=== PATIENT | female | born 1970 | race African-American/Black ===

== ENCOUNTER 2017-01-09 18:52 | Emergency (ER) | payer BC ==
[2017-01-09 19:00] VITALS: BMI 34.7
--- NOTE | 2017-01-09 19:00 | PDOC ---
Rapid Medical Evaluation Chief Complaint: Chest Pain Time Seen by Provider: 01/09/17 18:54 Medical Evaluation: Allergies Allergy/AdvReac Type Severity Reaction Status Date / Time codeine [Codeine] Allergy Verified 01/09/17 18:54 01/09/17 18:59 I have performed a brief in-person evaluation of this patient. The patient presents with a chief complaint of: chest pain, sob, dizziness Pertinent physical exam findings:anxious female I have ordered the following:cbc, cmp, troponin, cxr, bnp The patient will proceed to the ED for further evaluation.
[2017-01-09 20:04] LABS: URINE APPEARANCE CLEAR; URINE BILIRUBIN NEGATIVE (NEGATIVE); URINE BLOOD NEGATIVE (NEGATIVE); URINE COLOR COLORLESS; URINE GLUCOSE (UA) NEGATIVE (NEGATIVE); URINE KETONE NEGATIVE (NEGATIVE); URINE LEUK ESTERASE NEGATIVE (NEGATIVE); URINE NITRITE NEGATIVE (NEGATIVE); URINE PROTEIN NEGATIVE (NEGATIVE); URINE UROBILINOGEN NEGATIVE E.U./dl (0.2-1.0)
[2017-01-09 20:05] LABS: BASOPHIL 0.6 % (0-2.0); MCH 28.1 pg (25.7-33.7); MCHC 33.7 g/dl (32.0-36.0); MEAN CELL VOLUME 83.4 fl (80-96); MEAN PLT VOLUME 8.3 fl (7.5-11.1); NEUTROPHILS 63.1 % (42.8-82.8); PLATELET COUNT 266 K/MM3 (134-434); RDW 14.3 % (11.6-15.6); WHITE BLOOD COUNT 6.7 K/mm3 (4.0-10.0)
[2017-01-09 20:29] LABS: ALBUMIN 3.4 g/dl (3.4-5.0); ANION GAP 8 (8-16); BILIRUBIN,TOTAL 0.3 mg/dL (0.2-1.0); CALCIUM 8.2 mg/dL (8.5-10.1); CO2 28 mmol/L (21-32); GLUCOSE,RANDOM 97 mg/dL (74-106); SGOT/AST 13 U/L (15-37); SGPT/ALT 26 U/L (12-78); TOT PROT 7.1 g/dl (6.4-8.2)
[2017-01-09] MEDS ORDERED: MECLIZINE HCL 12.5 MG TABLET PO ONE (20:32)
[2017-01-09 20:35] LABS: ALK PHOS 118 U/L (45-117); TROPONIN I < 0.02 ng/ml (0.00-0.05)
[2017-01-09] MEDS ORDERED: MECLIZINE HCL 12.5 MG TABLET ONE (20:35)
--- NOTE | 2017-01-09 20:48 | PDOC ---
*Physical Exam - Vital Signs Last Vital Signs Temp Pulse Resp BP Pulse Ox 97.6 F 76 19 157/89 98 01/09/17 18:54 01/09/17 18:54 01/09/17 18:54 01/09/17 18:54 01/09/17 18:54 ED Treatment Course - LABORATORY CBC & Chemistry Diagram: 01/09/17 19:31 01/09/17 19:31 - ADDITIONAL ORDERS Additional order review: Laboratory Results 01/09/17 01/09/17 01/09/17 19:51 19:50 19:31 Sodium 139 Potassium 3.8 Chloride 103 Carbon Dioxide 28 Anion Gap 8 BUN 20 H Creatinine 1.0 Creat Clearance w eGFR 59.18 Random Glucose 97 Calcium 8.2 L Total Bilirubin 0.3 D AST 13 L D ALT 26 Alkaline Phosphatase 118 H Creatine Kinase 66 Troponin I < 0.02 B-Natriuretic Peptide 104.16 Total Protein 7.1 Albumin 3.4 D Serum , Qual Negative Urine Color Colorless Urine Appearance Clear Urine pH 5.0 Ur Specific [place] 1.005 Urine Protein Negative Urine Glucose (UA) Negative Urine Ketones Negative Urine Blood Negative Urine Nitrite Negative Urine Bilirubin Negative Urine Urobilinogen Negative Ur Leukocyte Esterase Negative 01/09/17 19:31 RBC 3.82 MCV 83.4 MCHC 33.7 RDW 14.3 MPV 8.3 Neutrophils % 63.1 D Lymphocytes % 23.6 D Monocytes % 9.7 Eosinophils % 3.0 D Basophils % 0.6 - Medications Given in the ED: ED Medications Discontinued Medications Generic Name Dose Route Start Last Admin Trade Name Freq PRN Reason Stop Dose Admin Meclizine HCl 12.5 mg 01/09/17 20:32 01/09/17 20:40 Antivert - PO 01/09/17 20:33 12.5 mg ONCE ONE Administration Medical Decision Making - Medical Decision Making 01/09/17 20:47 Pt seen by the Advanced Practice Provider under my direct supervision Ancillary studies reviewed I agree with plan as outlined by the Advanced Practice Provider JANNIE Kincaid *DC/Admit/Observation/Transfer Diagnosis at time of Disposition: Dizziness, Atypical chest pain - Discharge Dispostion Disposition: HOME Condition at time of disposition: Guarded - Referrals Referrals: Philipp Wong MD [Staff Physician] - Zafar Starks MD [Primary Care Provider] - - Patient Instructions Printed Discharge Instructions: Vertigo, DI for Atypical Chest Pain Additional Instructions: Rest Avoid driving or operating heavy machinery Follow up with the Neurologist (listed on your discharge form) and your physician Return back to the ER for severe/persistent or worsening symptoms
--- NOTE | 2017-01-09 21:24 | PDOC ---
History of Present Illness - General Chief Complaint: Chest Pain Stated Complaint: CHEST PAIN Time Seen by Provider: 01/09/17 18:54 History Source: Patient Exam Limitations: No Limitations - History of Present Illness Timing/Duration: 1-3 hours Severity: mild Associated Symptoms: reports: chest pain (left sided) Aspirin Received prior to arrival: Yes: no aspirin today Past History - Travel Traveled outside of the country in the last 30 days: No Close contact w/someone who was outside of country & ill: No - Past Medical History Allergies/Adverse Reactions: Allergies Allergy/AdvReac Type Severity Reaction Status Date / Time codeine [Codeine] Allergy Verified 01/09/17 18:54 Home Medications: Ambulatory Orders Amlodipine Besylate [Norvasc -] 10 mg PO DAILY 06/21/15 Furosemide [Lasix -] 20 mg PO DAILY 06/21/15 Lisinopril [Prinivil -] 60 mg PO DAILY 06/21/15 Multivitamins [Multivit ([facility] Formulary)] 1 tab PO DAILY 06/21/15 Albuterol Sulfate [Proair Hfa -] 1 - 2 inh PO BID 11/06/15 Budesonide/Formeterol Fumarate [SYMBICORT 160/4.5mcg -] 1 inh PO DAILY 11/06/15 Lactobacillus Acidophilus [Bacid -] 2 each PO HS #30 capsule 04/02/16 Naproxen [Naprosyn -] 500 mg PO BID #30 tablet 10/22/16 Ondansetron [Zofran *Odt*] 4 mg SL TID #30 od.tablet 10/22/16 Pantoprazole Sodium [Protonix -] 80 mg PO BID #30 tablet.ec 10/22/16 Asthma: Yes CVA: Yes Diabetes: Yes GI Disorders: Yes (GERD) HTN: Yes Hypercholesterolemia: Yes Suicide Attempt (Hx): No - Family Disease History Family Disease History: Heart Disease: Father (htn) - Immunization History Td Vaccination: Yes Immunization Up to Date: Yes - Psycho/Social/Smoking Cessation Hx Anxiety: No Suicidal Ideation: No Smoking Status: No Smoking History: Never smoked Years of Tobacco Use: 0 Have you smoked in the past 12 months: No Number of Cigarettes Smoked Daily: 0 Cigars Per Day: 0 Hx Alcohol Use: No Drug/Substance Use Hx: No Substance Use Type: None Hx Substance Use Treatment: No Review of Systems - Review of Systems Able to Perform ROS?: Yes Comments:: 01/09/17 21:22 CONSTITUTIONAL: Absent: fever, chills, diaphoresis, generalized weakness, malaise, loss of appetite HEENT: Absent: rhinorrhea, nasal congestion, throat pain, throat swelling, difficulty swallowing, mouth swelling, ear pain, eye pain, visual Changes CARDIOVASCULAR: +chest pain Absent: loss of consciousness, palpitations, irregular heart rate, peripheral edema RESPIRATORY: Absent: cough, shortness of breath, dyspnea with exertion, orthopnea, wheezing, stridor, hemoptysis GASTROINTESTINAL: Absent: abdominal pain, abdominal distension, nausea, vomiting, diarrhea, constipation, melena, hematochezia GENITOURINARY: Absent: dysuria, frequency, urgency, hesitancy, hematuria, flank pain, genital pain MUSCULOSKELETAL: Absent: myalgia, arthralgia, joint swelling SKIN: Absent: rash, itching, pallor HEMATOLOGIC/IMMUNOLOGIC: Absent: easy bleeding, easy bruising, lymphadenopathy, frequent infections ENDOCRINE: Absent: unexplained weight gain, unexplained weight loss, heat intolerance, cold intolerance NEUROLOGIC: +dizziness Absent: headache, focal weakness or paresthesias, unsteady gait, seizure, mental status changes, bladder or bowel incontinence PSYCHIATRIC: Absent: anxiety, depression, suicidal or homicidal ideation, hallucinations. Is the patient limited [place]ian proficient: No *Physical Exam - Vital Signs Last Vital Signs Temp Pulse Resp BP Pulse Ox 97.6 F 76 19 157/89 98 01/09/17 18:54 01/09/17 18:54 01/09/17 18:54 01/09/17 18:54 01/09/17 18:54 - Physical Exam Comments: 01/09/17 21:22 GENERAL: Well developed, well nourished. Awake and alert. No acute distress. HEENT: Normocephalic, atraumatic. PERRLA, EOMI. No conjunctival pallor. Sclera are non- icteric. Moist mucous membranes. Oropharynx is clear. NECK: Supple. Full ROM. No JVD. Carotid pulses 2+ and symmetric, without bruits. No thyromegaly. No lymphadenopathy. CARDIOVASCULAR: Regular rate and rhythm. No murmurs, rubs, or gallops. Distal pulses are 2+ and symmetric. PULMONARY: No evidence of respiratory distress. Lungs clear to auscultation bilaterally. No wheezing, rales or rhonchi. ABDOMINAL: Soft. Non-tender. Non-distended. No rebound or guarding. No organomegaly. Normoactive bowel sounds. MUSCULOSKELETAL Normal range of motion at all joints. No bony deformities or tenderness. No CVA tenderness. EXTREMITIES: No cyanosis. No clubbing. No edema. No calf tenderness. SKIN: Warm and dry. Normal capillary refill. No rashes. No jaundice. NEUROLOGICAL: Alert, awake, appropriate. Cranial nerves 2-12 intact. No deficits to light touch and temperature in face, upper extremities and lower extremities. No motor deficits in the in face, upper extremities and lower extremities. Normoreflexic in the upper and lower extremities. Normal speech. Toes are down- going bilaterally. Gait is normal without ataxia. PSYCHIATRIC: Cooperative. Good eye contact. Appropriate mood and affect. ED Treatment Course - LABORATORY CBC & Chemistry Diagram: 01/09/17 19:31 01/09/17 19:31 - ADDITIONAL ORDERS Additional order review: Laboratory Results 01/09/17 01/09/17 01/09/17 19:51 19:50 19:31 Sodium 139 Potassium 3.8 Chloride 103 Carbon Dioxide 28 Anion Gap 8 BUN 20 H Creatinine 1.0 Creat Clearance w eGFR 59.18 Random Glucose 97 Calcium 8.2 L Total Bilirubin 0.3 D AST 13 L D ALT 26 Alkaline Phosphatase 118 H Creatine Kinase 66 Troponin I < 0.02 B-Natriuretic Peptide 104.16 Total Protein 7.1 Albumin 3.4 D Serum , Qual Negative Urine Color Colorless Urine Appearance Clear Urine pH 5.0 Ur Specific [place] 1.005 Urine Protein Negative Urine Glucose (UA) Negative Urine Ketones Negative Urine Blood Negative Urine Nitrite Negative Urine Bilirubin Negative Urine Urobilinogen Negative Ur Leukocyte Esterase Negative 01/09/17 19:31 RBC 3.82 MCV 83.4 MCHC 33.7 RDW 14.3 MPV 8.3 Neutrophils % 63.1 D Lymphocytes % 23.6 D Monocytes % 9.7 Eosinophils % 3.0 D Basophils % 0.6 - Medications Given in the ED: ED Medications Discontinued Medications Generic Name Dose Route Start Last Admin Trade Name Freq PRN Reason Stop Dose Admin Meclizine HCl 12.5 mg 01/09/17 20:32 01/09/17 20:40 Antivert - PO 03/09/17 20:33 12.5 mg ONCE ONE Administration *DC/Admit/Observation/Transfer Diagnosis at time of Disposition: Dizziness, Atypical chest pain - Discharge Dispostion Condition at time of disposition: Guarded - Referrals Referrals: Zafar Starks MD [Primary Care Provider] - Philipp Wong MD [Staff Physician] - - Patient Instructions Printed Discharge Instructions: DI for Atypical Chest Pain, Vertigo Additional Instructions: Rest Avoid driving or operating heavy machinery Follow up with the Neurologist (listed on your discharge form) and your physician Return back to the ER for severe/persistent or worsening symptoms Progress Note - Progress Note Progress Note: 46-year-old female presents to the emergency department complaining of left- sided chest pain 2 hours. Pain is described as 4/10 dull nonradiating intermittent discomfort. The pain is exacerbated on deep inspiration and alleviated at rest. The pain is also associated with mild dizziness/spinning of the room. She denies nausea/vomiting, fever/chills, neck pain, visual disturbance, blurry vision, back pains, shortness of breath, abdominal pains, flank pains, urinary symptoms: Frequency/urgency/hesitancy, hematuria, extremity numbness or tingling sensation. Patient states she has similar symptoms approximately 2 years ago and was seen by a neurologist/Dr. Arredondo. Patient was diagnosed with vertical. Patient denied having a tilt table exam.
[2017-01-10 00:23] LABS: TROPONIN I < 0.02 ng/ml (0.00-0.05)
[2017-01-10 00:39] VITALS: BP 154/89; PULSE 79; TEMP 97.9
--- NOTE | 2017-01-10 09:58 | EKG ---
Test Reason : Blood Pressure : / mmHG Vent. Rate : 078 BPM Atrial Rate : 078 BPM P-R Int : 158 ms QRS Dur : 088 ms QT Int : 416 ms P-R-T Axes : 001 047 039 degrees QTc Int : 474 ms NORMAL SINUS RHYTHM NONSPECIFIC ST ABNORMALITY WHEN COMPARED WITH ECG OF 30-MAR-2016 10:43, NO SIGNIFICANT CHANGE WAS FOUND Confirmed by MARIE PALMER MD ([id number]) on 01/10/2017 9:58:12 AM Referred By: Confirmed By:MARIE PALMER MD
== END 2017-01-10 00:39 | disposition home or self-care (01) ==
LOC: JER 18:52
DX: R07.89 Other chest pain (principal); R42 Dizziness and giddiness; I10 Essential (primary) hypertension; E11.9 Type 2 diabetes mellitus without complications; E78.00 Pure hypercholesterolemia, unspecified; J45.909 Unspecified asthma, uncomplicated; Z86.73 Personal history of transient ischemic attack (TIA), and cerebral infarction without residual deficits
CPT/HCPCS: 36415; 70450-TC; 71020-TC; 80053; 81003; 82550; 83880; 84484; 84703; 85025; 93005; 93010; 99283-25

== ENCOUNTER 2017-01-24 19:07 | Emergency (ER) | payer BC ==
[2017-01-24 19:23] VITALS: BMI 34.7
[2017-01-24] MEDS ORDERED: BENZOCAINE/MENTH/CETYLPYRD CL 1 EACH LOZENGE MM ONE (20:00)
[2017-01-24] MEDS ORDERED: IBUPROFEN 600 MG TABLET (FP) PO ONE ×2 (20:06→20:14)
--- NOTE | 2017-01-24 20:12 | PDOC ---
[id number] a 46 year old female with significant medical hx of asthma and HTN who is presenting to the ED with foul taste in mouth and coughing up bloody mucous that began 20 minutes [employer]. Patient reports that she felt something pop in her throat while she was drinking a glass of water. Thats when she developed a bad taste in her mouth and began coughing up green and bloody mucous. The patient is spitting up mucous into a bag during interview. Denies fever, nausea, or vomiting. Patient reports she had a right tonsillar abscess one year ago that was not surgically removed or drained. Instead she was treated with IV abx. Allergies: Codeine <Liliana Fabian - Last Filed: 01/24/17 20:13> - General History Source: Patient Exam Limitations: No Limitations - History of Present Illness Initial Comments: 01/28/17 08:20 CORRECTION TO SCRIBE NOTE: The patient WAS NOT coughing up blood or mucous. The patient was spitting up after she felt a popping sensation in the back of her throat. There is NOT hemoptysis or coughing at all. Please disregard this from the scribe section. <Luan Wise - Last Filed: 01/28/17 08:21> - General Chief Complaint: Hemoptysis Stated Complaint: BURSTED ABSCESS BOIL Time Seen by Provider: 01/24/17 19:29 Past History <Liliana Fabian - Last Filed: 01/24/17 20:13> - Past Medical History Asthma: Yes CVA: Yes Diabetes: Yes GI Disorders: Yes (GERD) HTN: Yes Hypercholesterolemia: Yes Suicide Attempt (Hx): No - Family Disease History Family Disease History: Heart Disease: Father (htn) - Immunization History Td Vaccination: Yes Immunization Up to Date: Yes - Psycho/Social/Smoking Cessation Hx Anxiety: No Suicidal Ideation: No Smoking Status: No Smoking History: Never smoked Years of Tobacco Use: 0 Have you smoked in the past 12 months: No Number of Cigarettes Smoked Daily: 0 Cigars Per Day: 0 Hx Alcohol Use: No Drug/Substance Use Hx: No Substance Use Type: None Hx Substance Use Treatment: No <Luan Wise - Last Filed: 01/28/17 08:21> - Past Medical History Allergies/Adverse Reactions: Allergies Allergy/AdvReac Type Severity Reaction Status Date / Time codeine [Codeine] Allergy Verified 01/24/17 19:22 Home Medications: Ambulatory Orders Amlodipine Besylate [Norvasc -] 10 mg PO DAILY 06/21/15 Furosemide [Lasix -] 20 mg PO DAILY 06/21/15 Lisinopril [Prinivil -] 60 mg PO DAILY 06/21/15 Multivitamins [Multivit ([facility] Formul[facility])] 1 tab PO DAILY 06/21/15 Albuterol Sulfate [Proair Hfa -] 1 - 2 inh PO BID 11/06/15 Budesonide/Formeterol Fumarate [SYMBICORT 160/4.5mcg -] 1 inh PO DAILY 11/06/15 Lactobacillus Acidophilus [Bacid -] 2 each PO HS #30 capsule 04/02/16 Montelukast Na [Singulair -] 0 mg PO DAILY 01/24/17 Review of Systems - Review of Systems Comments:: 01/24/17 20:14 GENERAL/CONSTITUTIONAL: No fever or chills. No weakness. HEAD, EYES, EARS, NOSE AND THROAT: Foul taste. No change in vision. No ear pain or discharge. No sore throat. CARDIOVASCULAR: No chest pain or shortness of breath. RESPIRATORY: Cough with bloody/green mucous. No wheezing. GASTROINTESTINAL: No nausea, vomiting, diarrhea or constipation. GENITOURINARY: No dysuria, frequency, or change in urination. MUSCULOSKELETAL: No joint or muscle swelling or pain. No neck or back pain. SKIN: No rash NEUROLOGIC: No headache, vertigo, loss of consciousness, or change in strength/ sensation. <Liliana Fabian - Last Filed: 01/24/17 20:13> *Physical Exam - Vital Signs Last Vital Signs Temp Pulse Resp BP Pulse Ox 98.3 F 77 18 170/110 99 01/24/17 19:22 01/24/17 19:22 01/24/17 19:22 01/24/17 19:22 01/24/17 19:22 - Physical Exam Comments: GENERAL: Awake, alert, and fully oriented, in no acute distress HEAD: No signs of trauma EYES: PERRLA, EOMI, sclera anicteric, conjunctiva clear ENT: Tonsil stone near the right tonsil. Auricles normal inspection, hearing grossly normal, nares patent. Moist mucosa NECK: Normal ROM, supple, no lymphadenopathy, JVD, or masses EXTREMITIES: Normal range of motion, no edema. No clubbing or cyanosis. No cords, erythema, or tenderness NEUROLOGICAL: Cranial nerves II through XII grossly intact. Normal speech, normal gait SKIN: Warm, Dry, normal turgor, no rashes or lesions noted. ALLERGIC/IMMUNOLOGIC: No hives or skin allergy. 01/24/17 20:15 <Liliana Fabian - Last Filed: 01/24/17 20:13> - Vital Signs Last Vital Signs Temp Pulse Resp BP Pulse Ox 98.3 F 77 18 170/110 99 01/24/17 19:22 01/24/17 19:22 01/24/17 19:22 01/24/17 19:22 01/24/17 19:22 <Luan Wise - Last Filed: 01/28/17 08:21> Medical Decision Making - Medical Decision Making 01/24/17 20:10 A portion of this note was documented by scribe services under my direction. I have reviewed the details of the note, within reason, and agree with the documentation with the following case summary and management plan written by me. Patient treated in the ED. Nursing notes are reviewed and incorporated into the medical decision-making. Vital signs reviewed. Peripheral IV access obtained by the nurse, laboratory studies are drawn and sent, reviewed and interpreted by myself. Vital Signs Temp Pulse Resp BP Pulse Ox 98.3 F 77 18 170/110 99 01/24/17 19:22 01/24/17 19:22 01/24/17 19:22 01/24/17 19:22 01/24/17 19:22 46 year old female with PMH of HTN, asthma p/w R tonsillar stone. The patient was in her usual state of health, when 20 min prior to arrival, she felt a "pop " sensation around her right tonsils. Reported a bad taste and and spit up small amounts of blood. Reports that the "feeling" is causing her to spit up. There is NO hemoptysis. This is a tonsillar stone. The stone was successfully pulled out with a tongue blade and tweezers. Salt water gargle. Motrin. Lemon drops. Follow up with PMD. <Luan Wise - Last Filed: 01/28/17 08:21> *DC/Admit/Observation/Transfer - Attestations Scribe Attestion: 01/24/17 20:18 Documentation prepared by Liliana Fabian, acting as medical payment poster for Luan Wise MD. <Liliana Fabian - Last Filed: 01/24/17 20:13> - Discharge Dispostion Admit: No <Luan Wise - Last Filed: 01/28/17 08:21> Diagnosis at time of Disposition: Tonsil stone - Discharge Dispostion Disposition: HOME Condition at time of disposition: Improved - Patient Instructions Additional Instructions: You have had a tonsil stone taken out. Salt water gargle. Lemon drops. 600 mg ibuprofen every 6 hours as needed for pain. Follow up with your doctor.
[2017-01-24 21:11] VITALS: BP 158/118; PULSE 66; TEMP 98
== END 2017-01-24 21:11 | disposition home or self-care (01) ==
LOC: JER 19:07
DX: J35.8 Other chronic diseases of tonsils and adenoids (principal); I10 Essential (primary) hypertension; E11.9 Type 2 diabetes mellitus without complications; E78.00 Pure hypercholesterolemia, unspecified; J45.909 Unspecified asthma, uncomplicated; Z86.73 Personal history of transient ischemic attack (TIA), and cerebral infarction without residual deficits
CPT/HCPCS: 99284-25

== ENCOUNTER 2017-05-08 12:45 | Emergency (ER) | payer BC ==
[2017-05-08 13:05] VITALS: BMI 34.2
[2017-05-08] MEDS ORDERED: METOCLOPRAMIDE HCL INJECTION 10 MG/2 ML VIAL IVPB ONE (13:22)
[2017-05-08] MEDS ORDERED: ENALAPRILAT DIHYDRATE 1.25 MG/1 ML VIAL IVPB ONE (13:22)
[2017-05-08] MEDS ORDERED: amLODIPine BESYLATE 10 MG TABLET (FP) PO ONE (13:23)
[2017-05-08] MEDS ORDERED: METOCLOPRAMIDE HCL INJECTION 10 MG/2 ML VIAL ONE (13:36)
[2017-05-08] MEDS ORDERED: ENALAPRILAT DIHYDRATE 2.5 MG/2 ML VIAL IVPB ONE (13:37)
[2017-05-08] MEDS ORDERED: amLODIPine BESYLATE 5 MG TABLET (FP) ONE (13:37)
[2017-05-08 13:44] LABS: BASOPHIL 0.8 % (0-2.0); MCH 28.1 pg (25.7-33.7); MCHC 33.9 g/dl (32.0-36.0); MEAN CELL VOLUME 82.7 fl (80-96); MEAN PLT VOLUME 8.7 fl (7.5-11.1); NEUTROPHILS 63.9 % (42.8-82.8); PLATELET COUNT 242 K/MM3 (134-434); RDW 14.6 % (11.6-15.6); WHITE BLOOD COUNT 5.7 K/mm3 (4.0-10.0)
--- NOTE | 2017-05-08 13:49 | PDOC ---
History of Present Illness - General Chief Complaint: Headache Stated Complaint: STIFF NECK, HEADACHES Time Seen by Provider: 05/08/17 13:11 History Source: Patient Exam Limitations: No Limitations - History of Present Illness Initial Comments: 05/08/17 13:59 47 y/o female presents to the ED with complaints of headache that began in her occipital region 2 days that has worsened in severity to the point that is now radiating to her neck and causing her photophobia along with nausea. Patient states ran out of her medication for blood pressure last week was unable to refill since her doctor is no longer in practice. Patient states has had no visual changes, neck stiffness, shortness of breath, or chest pain. Timing/Duration: getting worse Severity: moderate Associated Symptoms: reports: headaches, nausea/vomiting Past History - Travel Traveled outside of the country in the last 30 days: No Close contact w/someone who was outside of country & ill: No - Past Medical History Allergies/Adverse Reactions: Allergies Allergy/AdvReac Type Severity Reaction Status Date / Time codeine [Codeine] Allergy Verified 05/08/17 13:00 Home Medications: Ambulatory Orders Amlodipine Besylate [Norvasc -] 10 mg PO DAILY 06/21/15 Furosemide [Lasix -] 20 mg PO DAILY 06/21/15 Lisinopril [Prinivil -] 20 mg PO DAILY 06/21/15 Albuterol Sulfate [Proair Hfa -] 1 - 2 inh PO BID 11/06/15 Budesonide/Formeterol Fumarate [SYMBICORT 160/4.5mcg -] 1 inh PO DAILY 11/06/15 Pantoprazole Sodium 40 mg PO DAILY 05/08/17 Asthma: Yes CVA: Yes Diabetes: Yes GI Disorders: Yes (GERD) HTN: Yes Hypercholesterolemia: Yes Suicide Attempt (Hx): No - Family Disease History Family Disease History: Heart Disease: Father (htn) - Immunization History Td Vaccination: Yes Immunization Up to Date: Yes - Psycho/Social/Smoking Cessation Hx Anxiety: No Suicidal Ideation: No Smoking Status: No Smoking History: Never smoked Years of Tobacco Use: 0 Have you smoked in the past 12 months: No Number of Cigarettes Smoked Daily: 0 Cigars Per Day: 0 Hx Alcohol Use: No Drug/Substance Use Hx: No Substance Use Type: None Hx Substance Use Treatment: No Patient Lives Alone: No Lives with/in: spouse/SO Review of Systems - Review of Systems Able to Perform ROS?: Yes Constitutional: No: Symptoms Reported HEENTM: No: Symptoms Reported Respiratory: No: Symptoms reported ABD/GI: Yes: Nausea. No: Vomiting : No: Symptoms Reported Musculoskeletal: Yes: Neck Pain (posterior) Integumentary: No: Symptoms Reported Neurological: Yes: Headache (occipital) Endocrine: No: Symptoms Reported Hematologic/Lymphatic: No: Symptoms Reported *Physical Exam - Vital Signs Last Vital Signs Temp Pulse Resp BP Pulse Ox 98 F 57 L 19 191/70 99 05/08/17 13:00 05/08/17 13:00 05/08/17 13:00 05/08/17 13:00 05/08/17 13:00 - Physical Exam General Appearance: Yes: Nourished, Appropriately Dressed. No: Apparent Distress HEENT: positive: EOMI, RAAD, TMs Normal, Pharynx Normal. negative: Pale Conjunctivae Neck: positive: Tender (posterior neck pain), Supple. negative: Decreased range of motion Respiratory/Chest: positive: Lungs Clear, Normal Breath Sounds. negative: Respiratory Distress, Accessory Muscle Use Cardiovascular: positive: Regular Rhythm, Regular Rate. negative: Murmur Gastrointestinal/Abdominal: positive: Soft. negative: Tenderness Extremity: positive: Normal Capillary Refill. negative: Pedal Edema Integumentary: positive: Normal Color, Warm, Moist Neurologic: positive: Normal Mood/Affect, Motor Strength 5/5 (ambulatory) ED Treatment Course - LABORATORY CBC & Chemistry Diagram: 05/08/17 13:32 05/08/17 13:32 - RADIOLOGY Radiology Studies Ordered: Category Date Time Status HEAD CT WITHOUT CONTRAST [CT] Stat CT Scan 05/08/17 13:22 Ordered CHEST X-RAY PORTABLE* [RAD] Stat Radiology 05/08/17 13:22 Ordered Medical Decision Making - Medical Decision Making 05/08/17 14:22 Patient complaints of worsening headache for the past 2 days . She rates the pain 10 out of 10 with description of her pressure like discomfort to the occipital region. Patient had no neural focal deficits but was ordered for end organ workup including an EKG chest x-ray and head CT. Patient also ordered for by mouth Norvasc and IV enalapril. 05/08/17 15:25 Acute intracranial hemorrhage come edema, midline shift, mass effect or skull fracture. There is a small nonhemorrhagic air fluid level in the left maxillary sinus. Patient states the headache and nausea has resolved. Patient remains with an elevated blood pressure patient will be given the remainder of her antihypertensive meds along with clonidine. chest x-ray shows no acute findings. UA Collection pending.. Laboratory Tests 05/08/17 05/08/17 05/08/17 13:32 13:32 13:32 WBC 5.7 Hgb 11.5 Hct 34.0 Plt Count 242 Neutrophils % 63.9 Sodium 140 Potassium 3.5 Chloride 101 Carbon Dioxide 32 Anion Gap 7 L BUN 14 D Creat Clearance w eGFR > 60 Random Glucose 84 Total Bilirubin 0.6 D AST 19 D ALT 25 Creatine Kinase 80 Troponin I < 0.02 Total Protein 7.4 05/08/17 16:02 05/08/17 17:13 Laboratory Tests 05/08/17 16:26 Urine Ketones Negative Urine Nitrite Negative Ur Leukocyte Esterase Negative 05/08/17 17:57 Selected Entries 05/08/17 17:52 Temperature 98.1 F Pulse Rate [ 60 Apical] Respiratory 20 Rate Blood Pressure 155/70 [Right Arm] Blood Pressure 98 Mean [Right Arm ] 05/08/17 17:57 *DC/Admit/Observation/Transfer Diagnosis at time of Disposition: Hypertension Qualifiers: Hypertension type: essential hypertension Qualified Code(s): I10 - Essential ( primary) hypertension Headache Qualifiers: Headache type: unspecified Intractability: not intractable - Discharge Dispostion Disposition: HOME Condition at time of disposition: Improved - Referrals Referrals: Melba Rodríguez MD [Non Staff, Medical] - - Patient Instructions Printed Discharge Instructions: High Blood Pressure Additional Instructions: Please take your medication as prescribed and please call the referred physician to set up an appointment to manage your hypertension
[2017-05-08 14:10] LABS: ALBUMIN 3.7 g/dl (3.4-5.0); ANION GAP 7 (8-16); BILIRUBIN,TOTAL 0.6 mg/dL (0.2-1.0); CALCIUM 8.5 mg/dL (8.5-10.1); CO2 32 mmol/L (21-32); CREATININE 0.9 mg/dL (0.55-1.02); GLUCOSE,RANDOM 84 mg/dL (74-106); SGOT/AST 19 U/L (15-37); SGPT/ALT 25 U/L (12-78); TOT PROT 7.4 g/dl (6.4-8.2)
[2017-05-08 14:11] LABS: ALK PHOS 110 U/L (45-117)
[2017-05-08 14:12] LABS: TROPONIN I < 0.02 ng/ml (0.00-0.05)
[2017-05-08] MEDS ORDERED: FUROSEMIDE 20 MG TABLET (FP) PO ONE (15:26)
[2017-05-08] MEDS ORDERED: cloNIDine HCL 0.1 MG TABLET PO ONE (15:26)
[2017-05-08] MEDS ORDERED: FUROSEMIDE 40 MG TABLET (FP) ONE (15:30)
[2017-05-08] MEDS ORDERED: cloNIDine HCL 0.1 MG TABLET ONE (15:30)
--- NOTE | 2017-05-08 15:51 | EKG ---
Test Reason : Blood Pressure : / mmHG Vent. Rate : 057 BPM Atrial Rate : 057 BPM P-R Int : 208 ms QRS Dur : 082 ms QT Int : 476 ms P-R-T Axes : -04 028 007 degrees QTc Int : 463 ms SINUS BRADYCARDIA NONSPECIFIC ST ABNORMALITY ABNORMAL ECG WHEN COMPARED WITH ECG OF 09-JAN-2017 19:08, NO SIGNIFICANT CHANGE WAS FOUND Confirmed by TOMASA ORDAZ MD ([id number]) on 05/08/2017 3:51:15 PM Referred By: Confirmed By:TOMASA ORDAZ MD
[2017-05-08 17:08] LABS: URINE APPEARANCE CLEAR; URINE BILIRUBIN NEGATIVE (NEGATIVE); URINE BLOOD NEGATIVE (NEGATIVE); URINE GLUCOSE (UA) NEGATIVE (NEGATIVE); URINE KETONE NEGATIVE (NEGATIVE); URINE LEUK ESTERASE NEGATIVE (NEGATIVE); URINE NITRITE NEGATIVE (NEGATIVE); URINE PROTEIN NEGATIVE (NEGATIVE); URINE UROBILINOGEN 0.2 E.U/dl E.U./dl (0.2-1.0)
[2017-05-08 17:11] LABS: URINE COLOR COLORLESS
[2017-05-08 17:53] VITALS: BP 155/70; PULSE 60; TEMP 98.1
== END 2017-05-08 18:06 | disposition home or self-care (01) ==
LOC: JER 12:45
PROC: 3E033GC Introduction of Other Therapeutic Substance into Peripheral Vein, Percutaneous Approach (ICD-10-PCS; principal; 2017-05-08)
DX: I10 Essential (primary) hypertension (principal); R51 Headache; E11.9 Type 2 diabetes mellitus without complications; E78.00 Pure hypercholesterolemia, unspecified; K21.9 Gastro-esophageal reflux disease without esophagitis; Z86.73 Personal history of transient ischemic attack (TIA), and cerebral infarction without residual deficits
CPT/HCPCS: 36415; 70450-TC; 71010-TC; 80053; 81003; 82550; 84484; 85025; 86850; 86900; 86901; 93005; 93010; 99283-25

== ENCOUNTER 2018-02-15 14:05 | Emergency (ER) | payer BC ==
[2018-02-15 14:16] VITALS: TEMP 98.2; BMI 34.0
--- NOTE | 2018-02-15 14:27 | PDOC ---
History of Present Illness - General Chief Complaint: Pain, Acute Stated Complaint: RT/LT ARM NUMBNESS History Source: Patient Exam Limitations: No Limitations - History of Present Illness Initial Comments: 02/15/18 14:53 HPI: This 47-year-old female presents to the emergency room with complaints of right and left arm numbness and pain. She is frequently seen here last being one month ago with similar complaints of her arm having numbness or having pain. They have done complete CAT scans and MRI which are negative for findings of any CVA/infarcts. There is no acute finding of her numbness to her arms. She does have a neurologist, Dr. Arredondo but does not have any scheduled appointment or has not been there in quite some time. She is noted to have elevated blood pressure of 194/119 upon arrival and she states she has not taken her blood pressure medications since she ran out for the last 24 hours. She denies a headache, neck pain, back pain, denies any acute injury that may have happened, no nausea or vomiting, no chest pain or shortness of breath Chief Compliant: Pain and numbness to both arms but more on the right Pain location: Bilateral arm pain Duration: 3 days Modifying factors: States she took 200 mg of Tylenol 3 days ago but has not taken anything since Quality: Sharp pains Radiating: Radiating from mid shoulder to the hand Severity: Right is worse than left Time: throbbing intermittent PMH: Hypertension, noncompliant with medications, COPD, GERD, hyperlipidemia FH: Pt has not recently traveled outside the country in the last 30 days. Pt has not been in contact with people who have traveled out of the country, in contact with people who have been ill with fever, n, v, d. SH: smoking use: NONE illicit drug use: NONE alcohol use: NONE PSH: Home med use noted on JAN Allergies: Codeine Immunizations: PCP: Dr. Albert from [facility] Past History - Past Medical History Allergies/Adverse Reactions: Allergies Allergy/AdvReac Type Severity Reaction Status Date / Time codeine [Codeine] Allergy Verified 02/15/18 14:14 Home Medications: Ambulatory Orders Albuterol Sulfate [Proair Hfa -] 1 - 2 inh PO BID 11/06/15 Budesonide/Formeterol Fumarate [SYMBICORT 160/4.5mcg -] 1 inh PO DAILY #1 inh Furosemide [Lasix -] 20 mg PO DAILY #30 tab 05/08/17 Amlodipine Besylate [Norvasc -] 20 mg PO DAILY 02/15/18 Potassium Chloride 10 meq PO DAILY 02/15/18 Asthma: Yes CVA: No COPD: No Diabetes: No GI Disorders: Yes (GERD) HTN: Yes Hypercholesterolemia: Yes - Family Disease History Family Disease History: Heart Disease: Father (htn) - Immunization History Td Vaccination: Yes Immunization Up to Date: Yes - Suicide/Smoking/Psychosocial Hx Smoking Status: No Smoking History: Never smoked Years of Tobacco Use: 0 Have you smoked in the past 12 months: No Number of Cigarettes Smoked Daily: 0 Cigars Per Day: 0 Hx Alcohol Use: No Drug/Substance Use Hx: No Substance Use Type: None Hx Substance Use Treatment: No Review of Systems - Review of Systems Able to Perform ROS?: Yes Comments:: 02/15/18 14:57 General statement: Complaining of bilateral arm pain Hematology: neg history of bleeding/blood thinners Skin: Neg for lesions, rash, and noted small eccymotic area on right upper inner arm HEENT: Neg symptoms Respiratory: Neg SOB or difficulty in breathing Cardiac: Neg chest pain GI: Neg pain, n/v : Neg problems on voiding MS: Neg for joint pain/stiffness, no edema, c/o right and left arm pain and numbness more tot he right Neuro: Neg for LOC, weakness, neg for neck or back pain Endocrine: Neg for excess thirst/hunger, cold/heat intolerance, excess sweating Allergies: + for allergies 02/15/18 14:58 *Physical Exam - Vital Signs Last Vital Signs Temp Pulse Resp BP Pulse Ox 98.2 F 82 18 194/119 99 02/15/18 14:14 02/15/18 14:14 02/15/18 14:14 02/15/18 14:14 02/15/18 14:14 - Physical Exam Comments: 02/15/18 15:01 General Appearance: This well [id number] yr old who appears anxious mildly V/S: hemodynamically stable, afebrile with exception of the blood pressure being elevated Skin: WNL of pt's skin color, no signs of pallor, mottling, cyanosis and one quarter size eccymotic old site on the right inner upper arm. Head:symmetrical, neck neg for spinal tenderness or pain with FROM Eyes: EOM's intact, PERRLA Ears: denies pain Nose: patent Throat: lips, teeth, gums, tongue, buccal mucos pink and moist Lungs: Chest symmetry equal. Cap refill <3 seconds. Lung sounds clear Cardiac: PMI at R 4MCL space, pos S1 and S2, regular rate. Abdomen: Soft, round, nontender : Not observed Muscularskeletal: Gait steady, ambulated in to ER, no edema +PMS, right arm is held straight out and able to flex but says there is pain, and hands with fingers also spread out, no discoloration, cap refill WNL <3 sec, no swelling, one minor eccymotic area to the right arm, denies neck pain, left arm able to bend and go through pocketbook but refrains from using right arm/hand. Neuro: AAOx3, cognitively intact, speech clear and appropriate. ED Treatment Course - LABORATORY CBC & Chemistry Diagram: 02/15/18 15:04 02/15/18 17:47 Medical Decision Making - Medical Decision Making 02/15/18 15:05 A/P: 47 yr old female who is seen here frequently for similar complaints for headaches, arm numbness and pain, noncompliance to blood pressure meds Today she is here for arm pain and numbness without taking any medications for the pain. - administer blood pressure meds she has not take in over 24 hours for 194/119 ( norvasc, lasix, lisinopril) and monitor - tylenol for pain - IVF - Labs - will reassess She did state she was scheudled to have an appointment for the medication renewal tomorrow with her PCP 02/15/18 16:16 -Patient refused to take the lisinopril and blood pressure returned one hour after receiving Norvasc and Lasix is 184/94. -Pt given lopressor 25 po -Patient is hypokalemic at 2.8. 40 mEq of Kdur given and will repeat electrolytes at 5:30. 02/15/18 16:30 -States she feels better to her right arm after receiving IV Tylenol and in the process of IV fluids. -X-ray to cervical spine being obtained. 02/15/18 17:10 Cervical x-ray shows well spacing between the vertebrae without any signs of impingement or fracture. Speaking to patient she states that she feels much better and I do find her holding the IV pole clamping her hand on the right side around the pole without complaining of pain. 02/15/18 18:22 Pt second set of cmp back with hypokalemia continues at 2.8. Will replete with kdur, 10 of IVPB and ED obs to repeat in 4 hours. 02/15/18 18:33 Blood pressure continues to be elevated at 184/104. This needs to be observed as well while patient is in the ED. I am signing this patient out to my colleague: VINEET Colon In brief, this patient is being seen in the ED for a chief complaint of: Numbness and pain to the upper extremities and right hand especially I have completed the initial assessment interview note and have ordered: Cervical x-rays negative for any impingement and there is a good spacing between the vertebrae. Electrolytes that show hypokalemia and had brief and repleted as well as a second round of the electrolytes and supplementation Also noted to be hypertensive and have been given medication however these do not seem to be trending downward and need to be monitored as observation I have reviewed the following results: Electrolytes Pending results are: Please repeat electrolytes at 10 PM as well as monitoring blood pressure Plan for disposition is as follows: Pending *DC/Admit/Observation/Transfer Diagnosis at time of Disposition: Hypokalemia - Referrals Referrals: Tiffanie Albert MD [Primary Care Provider] - - Patient Instructions - Post Discharge Activity
[2018-02-15] MEDS ORDERED: FUROSEMIDE 20 MG TABLET (FP) PO ONE (14:45)
[2018-02-15] MEDS ORDERED: amLODIPine BESYLATE 10 MG TABLET (FP) PO ONE (14:45)
[2018-02-15] MEDS ORDERED: LISINOPRIL 20 MG TABLET (FP) PO ONE (14:45)
[2018-02-15] MEDS ORDERED: ACETAMINOPHEN 1000 MG/100 ML VIAL (NON FORMULARY) IVPB ONE (14:46)
[2018-02-15] MEDS ORDERED: SODIUM CHLORIDE 1,000 ML IV STA (14:46)
[2018-02-15] MEDS ORDERED: FUROSEMIDE 40 MG TABLET (FP) ONE (14:57)
[2018-02-15] MEDS ORDERED: ACETAMINOPHEN INJECTION 100 ML IVPB ONE (14:58)
[2018-02-15] MEDS ORDERED: amLODIPine BESYLATE 5 MG TABLET (FP) ONE (14:58)
[2018-02-15 15:22] LABS: BASO % 0.7 % (0-2.0); EOS % 1.8 % (0-4.5); HEMATOCRIT 35.5 % (32.4-45.2); HEMOGLOBIN 12.3 GM/dL (10.7-15.3); LYMPH % 24.6 % (8-40); MCH 28.8 pg (25.7-33.7); MCHC 34.7 g/dl (32.0-36.0); MEAN PLT VOLUME 8.8 fl (7.5-11.1); MONO % 8.6 % (3.8-10.2); NEUT % 64.3 % (42.8-82.8); PLATELET COUNT 271 K/MM3 (134-434); RBC 4.27 M/mm3 (3.60-5.2); WHITE BLOOD COUNT 6.8 K/mm3 (4.0-10.0)
[2018-02-15 15:23] LABS: URINE APPEARANCE CLEAR; URINE BILIRUBIN NEGATIVE (<2.0 mg/dL); URINE BLOOD NEGATIVE (NEGATIVE); URINE COLOR DKYELLOW; URINE GLUCOSE (UA) NEGATIVE (NEGATIVE); URINE KETONE NEGATIVE (NEGATIVE); URINE LEUK ESTERASE NEGATIVE (NEGATIVE); URINE NITRITE NEGATIVE (NEGATIVE)
[2018-02-15 15:26] LABS: URINE PROTEIN 3+ (NEGATIVE)
[2018-02-15 15:35] LABS: URINE HYALINE CAST 10 /lpf; URINE MUCUS RARE
[2018-02-15 15:39] LABS: ALBUMIN 3.8 g/dl (3.4-5.0); ALK PHOS 110 U/L (45-117); ANION GAP 10 (8-16); BILIRUBIN,TOTAL 0.6 mg/dL (0.2-1.0); BLOOD UREA NITROGEN 20 mg/dL (7-18); CALCIUM 8.9 mg/dL (8.5-10.1); CHLORIDE 97 mmol/L (98-107); CO2 32 mmol/L (21-32); CREATININE 1.1 mg/dL (0.55-1.02); GLUCOSE,RANDOM 82 mg/dL (74-106); SGOT/AST 27 U/L (15-37); SGPT/ALT 30 U/L (12-78); SODIUM 139 mmol/L (136-145); TOT PROT 8.1 g/dl (6.4-8.2)
[2018-02-15 15:43] LABS: POTASSIUM 2.8 mmol/L (3.5-5.1)
[2018-02-15] MEDS ORDERED: POTASSIUM CHLORIDE TABS 20 MEQ TABLET.ER (FP) PO ONE ×6 (15:55→23:30)
[2018-02-15] MEDS ORDERED: LISINOPRIL 20 MG TABLET (FP) ONE (16:15)
[2018-02-15] MEDS ORDERED: METOPROLOL TARTRATE 25 MG TABLET (FP) PO ONE (16:27)
[2018-02-15] MEDS ORDERED: METOPROLOL TARTRATE 25 MG TABLET (FP) ONE (16:32)
[2018-02-15 18:15] LABS: ALBUMIN 3.3 g/dl (3.4-5.0); ANION GAP 5 (8-16); BILIRUBIN,TOTAL 0.4 mg/dL (0.2-1.0); BLOOD UREA NITROGEN 19 mg/dL (7-18); CHLORIDE 101 mmol/L (98-107); CO2 34 mmol/L (21-32); CREATININE 0.9 mg/dL (0.55-1.02); GLUCOSE,RANDOM 81 mg/dL (74-106); MAGNESIUM 1.8 mg/dL (1.8-2.4); PHOSPHOROUS 3.9 mg/dL (2.5-4.9); SGOT/AST 20 U/L (15-37); SGPT/ALT 26 U/L (12-78); SODIUM 140 mmol/L (136-145)
[2018-02-15 18:17] LABS: ALK PHOS 102 U/L (45-117)
[2018-02-15 18:19] LABS: POTASSIUM 2.8 mmol/L (3.5-5.1)
[2018-02-15] MEDS ORDERED: KCL 10 MEQ IVPB 10 MEQ/100 ML INFUS.BAG IVPB SCH (18:30)
[2018-02-15 19:00] VITALS: PULSE 63
--- NOTE | 2018-02-15 19:18 | PDOC ---
*Physical Exam - Vital Signs Last Vital Signs Temp Pulse Resp BP Pulse Ox 98.2 F 63 16 182/104 99 02/15/18 14:14 02/15/18 18:45 02/15/18 18:45 02/15/18 18:45 02/15/18 18:45 - Physical Exam General Appearance: Yes: Appropriately Dressed. No: Apparent Distress HEENT: positive: Normal ENT Inspection Neck: positive: Trachea midline, Supple Respiratory/Chest: positive: Lungs Clear, Normal Breath Sounds. negative: Respiratory Distress, Accessory Muscle Use Musculoskeletal: positive: Normal Inspection. negative: CVA Tenderness Extremity: positive: Normal Capillary Refill, Normal Inspection, Normal Range of Motion Integumentary: positive: Normal Color, Dry, Warm Neurologic: positive: Fully Oriented, Normal Response ED Treatment Course - LABORATORY CBC & Chemistry Diagram: 02/15/18 15:04 02/15/18 22:13 - ADDITIONAL ORDERS Additional order review: Laboratory Results 02/15/18 02/15/18 02/15/18 17:47 15:00 14:53 Sodium 140 139 Potassium 2.8 L* 2.8 L* Chloride 101 97 L Carbon Dioxide 34 H 32 Anion Gap 5 L 10 BUN 19 H 20 H Creatinine 0.9 1.1 H Creat Clearance w eGFR > 60 52.79 Random Glucose 81 82 Calcium 8.0 L 8.9 Phosphorus 3.9 Magnesium 1.8 Total Bilirubin 0.4 D 0.6 AST 20 27 ALT 26 30 Alkaline Phosphatase 102 110 Total Protein 7.0 8.1 Albumin 3.3 L 3.8 Urine Color Urine Appearance Urine pH Ur Specific [place] Urine Protein Urine Glucose (UA) Urine Ketones Urine Blood Urine Nitrite Urine Bilirubin Urine Urobilinogen Ur Leukocyte Esterase Urine WBC (Auto) Urine RBC (Auto) Hyaline Casts Urine Mucus Urine HCG, Qual Negative 02/15/18 14:53 Sodium Potassium Chloride Carbon Dioxide Anion Gap BUN Creatinine Creat Clearance w eGFR Random Glucose Calcium Phosphorus Magnesium Total Bilirubin AST ALT Alkaline Phosphatase Total Protein Albumin Urine Color Dkyellow Urine Appearance Clear Urine pH 5.0 Ur Specific [place] 1.024 Urine Protein 3+ H D Urine Glucose (UA) Negative Urine Ketones Negative Urine Blood Negative Urine Nitrite Negative Urine Bilirubin Negative Urine Urobilinogen 2.0 H Ur Leukocyte Esterase Negative Urine WBC (Auto) 2 Urine RBC (Auto) None Hyaline Casts 10 Urine Mucus Rare Urine HCG, Qual 02/15/18 15:04 RBC 4.27 MCV 83.0 MCHC 34.7 RDW 14.0 MPV 8.8 Neutrophils % 64.3 Lymphocytes % 24.6 Monocytes % 8.6 Eosinophils % 1.8 Basophils % 0.7 - Medications Given in the ED: ED Medications Discontinued Medications Generic Name Dose Route Start Last Admin Trade Name Freq PRN Reason Stop Dose Admin Acetaminophen 1,000 mg 02/15/18 14:46 02/15/18 15:37 Ofirmev Injection - IVPB 02/15/18 14:47 1,000 mg ONCE ONE Administration Amlodipine Besylate 10 mg 02/15/18 14:45 02/15/18 15:03 Norvasc - PO 02/15/18 14:46 10 mg ONCE ONE Administration Furosemide 20 mg 02/15/18 14:45 02/15/18 15:03 Lasix - PO 02/15/18 14:46 20 mg ONCE ONE Administration Sodium Chloride 1,000 mls @ 1,000 mls/hr 02/15/18 14:46 02/15/18 15:37 Normal Saline - IV 02/15/18 15:45 1,000 mls/hr ASDIR STA Administration Lisinopril 20 mg 02/15/18 14:45 02/15/18 16:56 Prinivil PO 02/15/18 14:46 Not Given ONCE ONE Metoprolol Tartrate 25 mg 02/15/18 16:27 02/15/18 16:41 Lopressor - PO 02/15/18 16:28 25 mg ONCE ONE Administration Potassium Chloride 40 meq 02/15/18 15:55 02/15/18 16:08 K-Dur - PO 02/15/18 15:56 40 meq ONCE ONE Administration Progress Note - Progress Note Progress Note: Sign out received from VINEET Mclean Summary of ED course- BP meds, PO K+, c-spine xray Pertinent studies/lab/EKG/consults- K+ 2.8 after oral repletion Meds given- Lasix, Lisinopril, Metoprolol, Kdur 40mEq Anticipated plan/disposition- ED Obs for reassessment of BP and potassium Medical Decision Making - Medical Decision Making 02/15/18 23:04 Patient's blood pressure is 156/92 as measured by me manually. Potassium is currently 3.2. I gave the patient another 40 mEq KDur now. I'll give the patient 2 days supply of her current medications and have her follow-up with her primary doctor tomorrow as previous scheduled. *DC/Admit/Observation/Transfer Diagnosis at time of Disposition: Hypokalemia - Discharge Dispostion Disposition: HOME Condition at time of disposition: Stable Admit: No - Prescriptions Prescriptions: Amlodipine Besylate [Norvasc -] 20 mg PO DAILY #4 tablet Furosemide [Lasix -] 20 mg PO DAILY #4 tab Potassium Chloride 20 meq PO DAILY #4 capsule.er - Referrals Referrals: Tiffanie Albert MD [Primary Care Provider] - - Patient Instructions Additional Instructions: Keep appointment with her primary doctor tomorrow. You needs your blood pressure medication changed. You received metoprolol 25mg while in the emergency department here which helped with your blood pressure. Please let primary doctor know that. Eat a low-salt diet. Your potassium was 2.8 when he showed up at the emergency department. He was given potassium orally and through your veins to increase your level. Bring this paperwork with you when you go to doctor tomorrow. Return to emergency department for any concerns. - Post Discharge Activity
[2018-02-15] MEDS ORDERED: KCL 10 MEQ IVPB 10 MEQ/100 ML INFUS.BAG IVPB ONE (19:23)
[2018-02-15 22:56] LABS: ANION GAP 4 (8-16); BLOOD UREA NITROGEN 18 mg/dL (7-18); CALCIUM 7.9 mg/dL (8.5-10.1); CHLORIDE 102 mmol/L (98-107); CO2 35 mmol/L (21-32); GLUCOSE,RANDOM 112 mg/dL (74-106); POTASSIUM 3.2 mmol/L (3.5-5.1); SODIUM 141 mmol/L (136-145)
[2018-02-15 22:58] VITALS: BP 156/92
--- NOTE | 2018-02-18 09:34 | EKG ---
Test Reason : Blood Pressure : / mmHG Vent. Rate : 065 BPM Atrial Rate : 065 BPM P-R Int : 164 ms QRS Dur : 088 ms QT Int : 468 ms P-R-T Axes : -07 031 046 degrees QTc Int : 486 ms NORMAL SINUS RHYTHM PROLONGED QT ABNORMAL ECG WHEN COMPARED WITH ECG OF 05-SEP-2017 08:56, NO SIGNIFICANT CHANGE WAS FOUND Confirmed by YAA ABBOTT MD ([id number]) on 02/18/2018 9:33:51 AM Referred By: Confirmed By:YAA ABBOTT MD
== END 2018-02-15 23:42 | disposition home or self-care (01) ==
LOC: JER 14:05
PROC: 3E0337Z Introduction of Electrolytic and Water Balance Substance into Peripheral Vein, Percutaneous Approach (ICD-10-PCS; principal; 2018-02-15)
PROC: 3E033NZ Introduction of Analgesics, Hypnotics, Sedatives into Peripheral Vein, Percutaneous Approach (ICD-10-PCS; 2018-02-15)
DX: E87.6 Hypokalemia (principal); I10 Essential (primary) hypertension; E78.00 Pure hypercholesterolemia, unspecified; J45.909 Unspecified asthma, uncomplicated; Z91.14 Patient's other noncompliance with medication regimen
CPT/HCPCS: 36415; 72050-TC-FY; 80048; 80053; 81003; 81015; 83735; 84100; 84703; 85025; 93005; 93010; 99284-25; J0131; J7030

== ENCOUNTER 2018-03-09 22:45 | Emergency (ER) | payer BC ==
[2018-03-09 22:50] VITALS: BMI 31.8
--- NOTE | 2018-03-10 00:03 | PDOC ---
Attending Attestation - [facility] HPI: 03/10/18 00:25 The patient is a 47 year old female, with a significant past medical history of asthma and hypertension, who presents to the emergency department with left hip pain for the past two days. The patient reports that she was dancing at a baby shower two days ago when she felt her left hip pop. The patient reports that she has been experiencing left hip pain since that time. She states that she has been able to bear weight on her left leg although she notes severe pain in doing so. The patient denies fever, chills, shortness of breath, chest pain, nausea, vomiting, diarrhea or dysuria. Allergies: Codeine. Past Surgical History: None reported. Social History: Non-smoker. Denies alcohol or drug use. PCP: Dr. Albert ([facility]) - Physicial Exam PE: 03/10/18 00:20 Vitals: Triage vital signs reviewed. General Appearance: No acute distress, well nourished, well developed. Head: Atraumatic, normocephalic. Eyes: Pupils equal round reactive, extraocular movements intact. Neck: Supple. No nuchal rigidity. Chest Wall: Nontender. Cardiac: Regular rate and rhythm. No murmurs, no rubs, no gallops. Lungs: Clear to auscultation bilaterally, good air movement bilaterally. Extremities: Left hip tenderness to palpation. Pain with rotation of the left hip. DP pulses are 2+ and symmetric. Full range of motion to all extremities, no cyanosis, clubbing, or edema. Skin: Warm and dry, no rashes or lesions, no petechiae. Neuro: AOX3. Cranial Nerves 2-12 grossly intact. Strength intact to all extremities. Sensation intact to all extremities. Gait deferred. Psych: Normal mood, normal affect. - Medical Decision Making 03/10/18 00:20 The patient is a 47 year old female, with a significant past medical history of asthma and hypertension, who presents to the emergency department with left hip pain for the past two days. The patient reports that she was dancing at a baby shower two days ago when she felt her left hip pop. The patient reports that she has been experiencing left hip pain since that time. She states that she has been able to bear weight on her left leg although she notes severe pain in doing so. The patient denies fever, chills, shortness of breath, chest pain, nausea, vomiting, diarrhea or dysuria. Allergies: Codeine. Past Surgical History: None reported. Social History: Non-smoker. Denies alcohol or drug use. PCP: Dr. Albert ([facility]) Documentation prepared by Ashanti Viveros, acting as chief medical director for Norberto Zimmerman MD. <Ashanti Viveros - Last Filed: 03/10/18 00:25> - Resident Resident Name: Mario Sumner - ED Attending Attestation I have performed the following: I have examined & evaluated the patient, The case was reviewed & discussed with the resident, I agree w/resident's findings & plan, Exceptions are as noted - Medical Decision Making No acute fracture dislocation noted on x-ray. History examination consistent with hip strain versus hip bursitis. We'll recommend crutches rest ice orthopedic follow-up Findings, need for follow-up and strict return instructions discussed with patient. <Norberto Zimmerman - Last Filed: 03/10/18 03:30>
--- NOTE | 2018-03-10 00:33 | PDOC ---
History of Present Illness - General Chief Complaint: Pain Stated Complaint: PAIN Time Seen by Provider: 03/09/18 23:19 - History of Present Illness Initial Comments: 03/10/18 00:28 47 yo F with h/o HTN, and asthma who p/w L hip pain. Patient states that she was dancing Friday03-07-18 and felt her hip "pop." shortly after she developed R hip pain, worse with ambulation, weight bearing, and touch. Denies fall, head/neck/back trauma or LOC. Now complains of limping gait. Denies F/C, N/V, CP, SOB, abdominal pain, diarrhea, constipation, urinary complaints, weakness, lightheadedness, sensory changes PMHx: As noted above. Denies h/o hip dislocation. ROS: As noted above Past History - Past Medical History Allergies/Adverse Reactions: Allergies Allergy/AdvReac Type Severity Reaction Status Date / Time codeine [Codeine] Allergy Verified 03/09/18 22:48 Home Medications: Ambulatory Orders Albuterol Sulfate [Proair Hfa -] 1 - 2 inh PO BID 11/06/15 Budesonide/Formeterol Fumarate [SYMBICORT 160/4.5mcg -] 1 inh PO DAILY #1 inh Amlodipine Besylate [Norvasc -] 20 mg PO DAILY #4 tablet 02/15/18 Furosemide [Lasix -] 20 mg PO DAILY #4 tab 02/15/18 Potassium Chloride 20 meq PO DAILY #4 capsule.er 02/15/18 Asthma: Yes CVA: No COPD: No Diabetes: No GI Disorders: Yes (GERD) HTN: Yes Hypercholesterolemia: Yes - Family Disease History Family Disease History: Heart Disease: Father (htn) - Immunization History Td Vaccination: Yes Immunization Up to Date: Yes - Suicide/Smoking/Psychosocial Hx Smoking Status: No Smoking History: Never smoked Years of Tobacco Use: 0 Have you smoked in the past 12 months: No Number of Cigarettes Smoked Daily: 0 Cigars Per Day: 0 Hx Alcohol Use: No Drug/Substance Use Hx: No Substance Use Type: None Hx Substance Use Treatment: No Review of Systems - Review of Systems Comments:: 03/10/18 00:28 GENERAL/CONSTITUTIONAL: No fever or chills. No weakness. HEAD, EYES, EARS, NOSE AND THROAT: No change in vision. No ear pain or discharge. No sore throat. CARDIOVASCULAR: No chest pain or shortness of breath RESPIRATORY: No cough, wheezing, or hemoptysis. GASTROINTESTINAL: No nausea, vomiting, diarrhea or constipation. GENITOURINARY: No dysuria, frequency, or change in urination. MUSCULOSKELETAL: Left hip pain. No neck or back pain. SKIN: No rash NEUROLOGIC: No headache, vertigo, loss of consciousness, or change in strength/ sensation. ENDOCRINE: No increased thirst. No abnormal weight change HEMATOLOGIC/LYMPHATIC: No anemia, easy bleeding, or history of blood clots. ALLERGIC/IMMUNOLOGIC: No hives or skin allergy. *Physical Exam - Vital Signs Last Vital Signs Temp Pulse Resp BP Pulse Ox 98.2 F 100 H 18 163/93 97 03/09/18 22:48 03/09/18 22:48 03/09/18 22:48 03/09/18 22:48 03/09/18 22:48 - Physical Exam Comments: 03/10/18 00:28 GENERAL: Awake, alert, and fully oriented, in no acute distress HEAD: No signs of trauma, normocephalic, atraumatic EYES: PERRLA, EOMI, sclera anicteric, conjunctiva clear ENT: Hearing grossly normal, nares patent, oropharynx clear without exudates. Moist mucosa NECK: Normal ROM, supple, no lymphadenopathy, JVD, or masses LUNGS: No distress, speaks full sentences, clear to auscultation bilaterally HEART: Regular rate and rhythm, normal S1 and S2, no murmurs, rubs or gallops, peripheral pulses normal and equal bilaterally. EXTREMITIES : Absent limb length discrepancy. Normal inspection, no edema. No clubbing or cyanosis. Intact DP and PT pulses. Pain with active and passive L hip ROM. + limping gait. L greater trochanter ttp. SKIN: Warm, Dry, normal turgor, no rashes or lesions noted ED Treatment Course - RADIOLOGY Radiology Studies Ordered: Category Date Time Status HIP & PELVIS-LEFT [RAD] Stat Radiology 03/09/18 23:36 Ordered Medical Decision Making - Medical Decision Making 03/10/18 00:30 47 yo F with h/o HTN, and asthma who p/w L hip pain. VSS, + left sided limping gait.Complaint of L hip pain s/p mechanical injury. LLE neurovasculalry intact. Radiographic evaluation r/o dislocation,fracture. ED course: LEFT HIP/PELVIS: No evidence of fracture or dislocation on preliminary read. Probable hip bursitis. Plan to d/c with ortho f/u and return precautions. *DC/Admit/Observation/Transfer Diagnosis at time of Disposition: Hip pain Qualifiers: Laterality: left Qualified Code(s): M25.552 - Pain in left hip - Discharge Dispostion Disposition: HOME Condition at time of disposition: Stable Admit: No - Referrals Referrals: Tiffanie Albert MD [Primary Care Provider] - - Patient Instructions Printed Discharge Instructions: DI for Hip Bursitis Additional Instructions: Please return to the emergency department with any new or worsening symptoms or concerns. Please follow up with orthopedics within 72 hours. Ibuprofen as tolerated for pain, not to exceed 3200 mg/day. - Post Discharge Activity Forms/Work/School Notes: Back to Work - Attestations Physician Attestion: 03/10/18 02:15 I attest to the information provided in this note.
[2018-03-10] MEDS ORDERED: KETOROLAC TROMETHAMINE 30 MG/1 ML VIAL IM ONE (00:43)
[2018-03-10] MEDS ORDERED: KETOROLAC TROMETHAMINE 30 MG/1 ML VIAL ONE (00:49)
[2018-03-10 03:05] VITALS: BP 150/85; PULSE 80; TEMP 98
== END 2018-03-10 03:04 | disposition home or self-care (01) ==
LOC: JER 22:45
PROC: 3E0233Z Introduction of Anti-inflammatory into Muscle, Percutaneous Approach (ICD-10-PCS; principal; 2018-03-09)
DX: M25.552 Pain in left hip (principal); X50.3XXA Overexertion from repetitive movements, initial encounter; Y93.41 Activity, dancing; Y92.89 Other specified places as the place of occurrence of the external cause; Y99.8 Other external cause status; I10 Essential (primary) hypertension; J45.909 Unspecified asthma, uncomplicated; E78.00 Pure hypercholesterolemia, unspecified; K21.9 Gastro-esophageal reflux disease without esophagitis
CPT/HCPCS: 73523-TC-FY; 99283-25

== ENCOUNTER 2018-03-31 20:04 | Observation (INO) | payer BC ==
[2018-03-31] MEDS ORDERED: ALBUTEROL SO4 2.5/IPRATROPIUM 0.5 INH SOL 3 ML VIAL.NEB. NEB ONE ×2 (20:16→20:55)
--- NOTE | 2018-03-31 20:16 | PDOC ---
Rapid Medical Evaluation Chief Complaint: Chest Pain Time Seen by Provider: 03/31/18 20:12 Medical Evaluation: Allergies Allergy/AdvReac Type Severity Reaction Status Date / Time codeine [Codeine] Allergy Verified 03/09/18 22:48 03/31/18 20:12 Pt. presents with chest pain, worse with coughing for four days. Taking her albuterol at home with little relief. Exam: CTAB, RRR, systolic murmur Orders: duoneb, ekg Pt. to proceed to FT for further evaluation.
--- NOTE | 2018-03-31 21:16 | PDOC ---
History of Present Illness - General Chief Complaint: Chest Pain Stated Complaint: CHEST PAIN Time Seen by Provider: 03/31/18 20:12 - History of Present Illness Initial Comments: 47-year-old female with past medical history significant for hypertension she takes a calcium channel jimmy and a loop diuretic with 4 days worth of cough and chest pain. Her chest pain was constant but now is only exacerbated with coughing. Her pain does radiate into her jaw and into her back. 03/31/18 21:11 Past History - Past Medical History Allergies/Adverse Reactions: Allergies Allergy/AdvReac Type Severity Reaction Status Date / Time codeine [Codeine] Allergy Verified 03/09/18 22:48 Home Medications: Ambulatory Orders Albuterol Sulfate [Proair Hfa -] 1 - 2 inh PO BID 11/06/15 Budesonide/Formeterol Fumarate [SYMBICORT 160/4.5mcg -] 1 inh PO DAILY #1 inh Amlodipine Besylate [Norvasc -] 20 mg PO DAILY #4 tablet 02/15/18 Furosemide [Lasix -] 20 mg PO DAILY #4 tab 02/15/18 Potassium Chloride 20 meq PO DAILY #4 capsule.er 02/15/18 Asthma: Yes CVA: No COPD: No Diabetes: No GI Disorders: Yes (GERD) HTN: Yes Hypercholesterolemia: Yes - Family Disease History Family Disease History: Heart Disease: Father (htn) - Immunization History Td Vaccination: Yes Immunization Up to Date: Yes - Suicide/Smoking/Psychosocial Hx Smoking Status: No Smoking History: Never smoked Years of Tobacco Use: 0 Have you smoked in the past 12 months: No Number of Cigarettes Smoked Daily: 0 Cigars Per Day: 0 Hx Alcohol Use: No Drug/Substance Use Hx: No Substance Use Type: None Hx Substance Use Treatment: No Review of Systems - Review of Systems Comments:: GENERAL/CONSTITUTIONAL: No fever or chills. No weakness. No weight change. HEAD, EYES, EARS, NOSE AND THROAT: No change in vision. No ear pain or discharge. No sore throat. CARDIOVASCULAR: + chest pain and shortness of breath. RESPIRATORY: + cough, no wheezing, or hemoptysis. GASTROINTESTINAL: No nausea, vomiting, diarrhea or constipation. No rectal bleeding. GENITOURINARY: No dysuria, frequency, or change in urination. MUSCULOSKELETAL: No joint or muscle swelling or pain. No neck pain + back pain. SKIN AND BREASTS: No rash or easy bruising. NEUROLOGIC: No headache, vertigo, loss of consciousness, or loss of sensation. PSYCHIATRIC: No depression or anxiety. ENDOCRINE: No increased thirst. No abnormal weight change. HEMATOLOGIC/LYMPHATIC: No anemia, easy bleeding, or history of blood clots. ALLERGIC/IMMUNOLOGIC: No hives or skin allergy. No latex allergy. 03/31/18 21:12 *Physical Exam - Vital Signs Last Vital Signs Temp Pulse Resp BP Pulse Ox 99 F 86 18 165/95 99 03/31/18 20:11 03/31/18 20:11 03/31/18 20:11 03/31/18 20:11 03/31/18 20:11 - Physical Exam Comments: GENERAL: The patient is awake, alert, and fully oriented, in no acute distress. HEAD: Normal with no signs of trauma. EYES: Pupils equal, round and reactive to light, extraocular movements intact, sclera anicteric, conjunctiva clear. ENT: Ears normal, nares patent, oropharynx clear without exudates. Moist mucous membranes. NECK: Normal range of motion, supple without lymphadenopathy, JVD, or masses. LUNGS: Breath sounds diminished to auscultation bilaterally. No wheezes, and no crackles. HEART: Regular rate and rhythm, normal S1 and S2 without appreciated murmur, rub or gallop. ABDOMEN: Soft, nontender, normoactive bowel sounds. No guarding, no rebound. No masses. EXTREMITIES: Normal range of motion, no edema. No clubbing or cyanosis. No cords, erythema, or tenderness. NEUROLOGICAL: Cranial nerves II through XII grossly intact. Normal speech, normal gait. PSYCH: Normal mood, normal affect. SKIN: Warm, Dry, normal turgor, no rashes or lesions noted. 03/31/18 21:13 ED Treatment Course - RADIOLOGY Radiology Studies Ordered: Category Date Time Status CHEST - PA [RAD] Stat Radiology 03/31/18 21:08 Ordered - Medications Given in the ED: ED Medications Discontinued Medications Generic Name Dose Route Start Last Admin Trade Name Freq PRN Reason Stop Dose Admin Albuterol/Ipratropium 1 amp 03/31/18 20:16 03/31/18 21:02 Duoneb - NEB 03/31/18 20:17 1 amp ONCE ONE Administration Medical Decision Making - Medical Decision Making 47-year-old female with 4 days worth of chest pain which radiates into her jaw and back. She is hemodynamically stable her EKG shows flattened T waves and possibly an inverted T-wave in lead 3 and aVF and lead 2 flattened T waves in lead 1 normal sinus rhythm without block normal access. My plan is to start lab work on her including cardiac enzymes as well as get a chest x-ray. I suspect she will be transferred to the main emergency room. Differential includes hypokalemia due to the loop diuretic, DE, dissection is unlikely. 03/31/18 21:14 *DC/Admit/Observation/Transfer - Referrals Referrals: Tiffanie Albert MD [Primary Care Provider] - - Patient Instructions - Post Discharge Activity
[2018-03-31 21:42] LABS: BASO % 0.6 % (0-2.0); HEMOGLOBIN 11.4 GM/dL (10.7-15.3); LYMPH % 25.6 % (8-40); MCH 27.6 pg (25.7-33.7); MCHC 33.6 g/dl (32.0-36.0); MEAN CELL VOLUME 82.1 fl (80-96); MONO % 9.5 % (3.8-10.2); NEUT % 62.3 % (42.8-82.8); PLATELET COUNT 293 K/MM3 (134-434); RBC 4.14 M/mm3 (3.60-5.2); RDW 14.1 % (11.6-15.6); WHITE BLOOD COUNT 8.5 K/mm3 (4.0-10.0)
[2018-03-31 21:45] LABS: URINE APPEARANCE CLEAR; URINE BILIRUBIN NEGATIVE (<2.0 mg/dL); URINE COLOR STRAW; URINE GLUCOSE (UA) NEGATIVE (NEGATIVE); URINE KETONE NEGATIVE (NEGATIVE); URINE LEUK ESTERASE NEGATIVE (NEGATIVE); URINE NITRITE NEGATIVE (NEGATIVE); URINE UROBILINOGEN NEGATIVE mg/dL (0.2-1.0)
[2018-03-31 21:47] LABS: URINE PROTEIN 1+ (NEGATIVE)
[2018-03-31 21:48] LABS: EPI CELLS RARE /HPF (FEW); URINE BACTERIA RARE /hpf (NONE SEEN); URINE MUCUS RARE
[2018-03-31 22:11] LABS: ALBUMIN 3.6 g/dl (3.4-5.0); ANION GAP 9 (8-16); BILIRUBIN,TOTAL 0.4 mg/dL (0.2-1.0); BLOOD UREA NITROGEN 18 mg/dL (7-18); CALCIUM 8.3 mg/dL (8.5-10.1); CHLORIDE 97 mmol/L (98-107); CO2 31 mmol/L (21-32); CREATININE 1.1 mg/dL (0.55-1.02); GLUCOSE,RANDOM 108 mg/dL (74-106); SGOT/AST 19 U/L (15-37); SGPT/ALT 25 U/L (12-78); SODIUM 137 mmol/L (136-145); TOT PROT 7.8 g/dl (6.4-8.2)
[2018-03-31 22:12] LABS: ALK PHOS 127 U/L (45-117)
[2018-03-31 22:27] LABS: POTASSIUM 2.8 mmol/L (3.5-5.1)
[2018-03-31] MEDS ORDERED: POTASSIUM CHLORIDE TABS 20 MEQ TABLET.ER (FP) PO ONE ×2 (22:37→23:26)
[2018-03-31] MEDS ORDERED: KCL 10 MEQ IVPB 30 MEQ/300 ML INFUS.BAG IVPB ONE (23:27)
[2018-03-31] MEDS: KCL 10 MEQ IVPB 10 MEQ/100 ML INFUS.BAG IVPB SCH (23:50)
--- NOTE | 2018-04-01 00:32 | PDOC ---
ED Treatment Course - LABORATORY CBC & Chemistry Diagram: 03/31/18 21:32 03/31/18 21:32 - ADDITIONAL ORDERS Additional order review: Laboratory Results 03/31/18 03/31/18 03/31/18 21:32 21:32 21:32 Sodium 137 Potassium 2.8 L* Chloride 97 L Carbon Dioxide 31 Anion Gap 9 BUN 18 Creatinine 1.1 H Creat Clearance w eGFR 52.79 Random Glucose 108 H Calcium 8.3 L Total Bilirubin 0.4 AST 19 ALT 25 Alkaline Phosphatase 127 H Troponin I < 0.02 Total Protein 7.8 Albumin 3.6 Urine Color Straw Urine Appearance Clear Urine pH 6.0 Ur Specific [place] 1.004 Urine Protein 1+ H D Urine Glucose (UA) Negative Urine Ketones Negative Urine Blood Negative Urine Nitrite Negative Urine Bilirubin Negative Urine Urobilinogen Negative Ur Leukocyte Esterase Negative Urine WBC (Auto) 1 Urine RBC (Auto) 1 Ur Epithelial Cells Rare Urine Bacteria Rare Urine Mucus Rare 03/31/18 21:32 RBC 4.14 MCV 82.1 MCHC 33.6 RDW 14.1 MPV 8.0 Neutrophils % 62.3 Lymphocytes % 25.6 Monocytes % 9.5 Eosinophils % 2.0 Basophils % 0.6 - Medications Given in the ED: ED Medications Discontinued Medications Generic Name Dose Route Start Last Admin Trade Name Freq PRN Reason Stop Dose Admin Albuterol/Ipratropium 1 amp 03/31/18 20:16 03/31/18 21:02 Duoneb - NEB 03/31/18 20:17 1 amp ONCE ONE Administration Potassium Chloride 20 meq 03/31/18 22:37 03/31/18 23:50 K-Dur - PO 03/31/18 22:38 20 meq ONCE ONE Administration Progress Note - Progress Note Progress Note: I have received report from JANNIE Ozuna regarding this patient. Pt's initial chief complaint: Chest pain radiating to jaw and back Pt's work up completed prior to sign out: labs, EKG, CXR Pt treatment given from prior staff: IV potassium, PO potassium Pt plan to be completed: repeat trop, repeat CMP Dispo: Pending Medical Decision Making - Medical Decision Making A/P: 47 y/o afebrile female with CP x 4 days radiating into jaw and back. Patient initially evaluated in FT by JANNIE Ozuna. Patient found to be hypokalemic with EKG changes. 1st troponin negative. patient was given 3 IV KCL riders as well as PO K. Plan is as follows: 1. Repeat troponin 2. Repeat CMP 3. Repeat EKG Patient on 2nd bag of IV KCL. Will admit to obs for repeat CMP and troponin. Patient admitted to tele obs. Dr. Garcia accepts admission *DC/Admit/Observation/Transfer Diagnosis at time of Disposition: Chest pain Qualifiers: Chest pain type: unspecified Qualified Code(s): R07.9 - Chest pain, unspecified - Discharge Dispostion Condition at time of disposition: Stable Decision to Admit order: Yes - Referrals Referrals: Tiffanie Albert MD [Primary Care Provider] - - Patient Instructions - Post Discharge Activity
[2018-04-01] MEDS: KCL 10 MEQ IVPB 10 MEQ/100 ML INFUS.BAG IVPB SCH ×2 (01:17→02:58)
[2018-04-01 02:54] LABS: ALBUMIN 3.4 g/dl (3.4-5.0); ANION GAP 8 (8-16); BLOOD UREA NITROGEN 16 mg/dL (7-18); CALCIUM 8.1 mg/dL (8.5-10.1); CHLORIDE 101 mmol/L (98-107); CO2 31 mmol/L (21-32); CREATININE 0.9 mg/dL (0.55-1.02); GLUCOSE,RANDOM 91 mg/dL (74-106); POTASSIUM 3.1 mmol/L (3.5-5.1); SGOT/AST 19 U/L (15-37); SGPT/ALT 23 U/L (12-78); SODIUM 140 mmol/L (136-145)
[2018-04-01 02:58] LABS: ALK PHOS 112 U/L (45-117); BILIRUBIN,TOTAL 0.5 mg/dL (0.2-1.0); TOT PROT 7.4 g/dl (6.4-8.2)
[2018-04-01] MEDS ORDERED: POTASSIUM CHLORIDE TABS 20 MEQ TABLET.ER (FP) PO ONE ×3 (03:13→15:37)
--- NOTE | 2018-04-01 03:14 | HP ---
CHIEF COMPLAINT: chest pain x4 days PCP: [facility] ([phone]) HISTORY OF PRESENT ILLNESS: 47 year old female with a hx of hypertension, asthma, and anemia presents to the hospital for left sided, non-radiating chest pain of 4 day duration. She states that initially, the pain was worse on deep inhalation. She has never had a heart attack before and reports never experiencing pain like this in the past. Additionally she states that she has had more shortness of breath on exertion. She states that she was previously on aspirin, but does not remember why and has since stopped taking it. Patient also reports a history of hypokalemia for which she takes potassium supplementation, but admits to not taking her medications in several weeks. Currently denies SOB, fevers, chills, nausea, vomiting, diarrhea, fevers, chills, swelling in her legs, denies orthopnea. ER course was notable for: (1) K 2.8 --> 3.1 after initial repletion (2) BP 165/95 (3) EKG flattened T wave in lead 3/AvF Recent Travel: none PAST MEDICAL HISTORY: HTN Asthma Anemia Social History: Smoking: none Alcohol: none Drugs: none Allergies codeine [Codeine] Allergy (Verified 03/09/18 22:48) HOME MEDICATIONS: Home Medications Medication Instructions Recorded Albuterol Sulfate [Proair Hfa -] 1 - 2 inh PO BID 11/06/15 Amlodipine Besylate [Norvasc -] 20 mg PO DAILY #4 tablet 02/15/18 Furosemide [Lasix -] 20 mg PO DAILY #4 tab 02/15/18 Mometasone Furoate [Asmanex 110Mcg 1 inh IH DAILY 03/31/18 -] REVIEW OF SYSTEMS CONSTITUTIONAL: Absent: fever, chills, diaphoresis, generalized weakness, malaise, loss of appetite, weight change HEENT: Absent: rhinorrhea, nasal congestion, throat pain, throat swelling, difficulty swallowing, mouth swelling, ear pain, eye pain, visual changes CARDIOVASCULAR: chest pain Absent: syncope, palpitations, irregular heart rate, lightheadedness, peripheral edema RESPIRATORY: dyspnea with exertion Absent: cough, shortness of breath,orthopnea, wheezing, stridor, hemoptysis GASTROINTESTINAL: Absent: abdominal pain, abdominal distension, nausea, vomiting, diarrhea, constipation, melena, hematochezia GENITOURINARY: Absent: dysuria, frequency, urgency, hesitancy, hematuria, flank pain, genital pain MUSCULOSKELETAL: Absent: myalgia, arthralgia, joint swelling, back pain, neck pain SKIN: Absent: rash, itching, pallor HEMATOLOGIC/IMMUNOLOGIC: Absent: easy bleeding, easy bruising, lymphadenopathy, frequent infections ENDOCRINE: Absent: unexplained weight gain, unexplained weight loss, heat intolerance, cold intolerance NEUROLOGIC: Absent: headache, focal weakness or paresthesias, dizziness, unsteady gait, seizure, mental status changes, bladder or bowel incontinence PSYCHIATRIC: Absent: anxiety, depression, suicidal or homicidal ideation, hallucinations. PHYSICAL EXAMINATION Vital Signs - 24 hr 03/31/18 20:11 Temperature 99 F Pulse Rate 86 Respiratory 18 Rate Blood Pressure 165/95 O2 Sat by Pulse 99 Oximetry (%) GENERAL: A&Ox3, no acute distress EYES: PERRLA, EOMI ENT: Moist mucus membranes NECK: No JVD LUNGS: CTA, no wheezes HEART: RRR, systolic murmur appreciated on exam ABDOMEN: Soft, nontender, BS present MUSCULOSKELETAL: No CVA Tenderness EXTREMITIES: 2+ pulses, no edema. NEUROLOGICAL: Cranial nerves II-XII intact. Laboratory Results - last 24 hr 03/31/18 03/31/18 03/31/18 21:32 21:32 21:32 WBC 8.5 RBC 4.14 Hgb 11.4 Hct 34.0 MCV 82.1 MCH 27.6 MCHC 33.6 RDW 14.1 Plt Count 293 MPV 8.0 Neutrophils % 62.3 Lymphocytes % 25.6 Monocytes % 9.5 Eosinophils % 2.0 Basophils % 0.6 Nucleated RBC % 0 Sodium 137 Potassium 2.8 L* Chloride 97 L Carbon Dioxide 31 Anion Gap 9 BUN 18 Creatinine 1.1 H Creat Clearance w eGFR 52.79 Random Glucose 108 H Calcium 8.3 L Total Bilirubin 0.4 AST 19 ALT 25 Alkaline Phosphatase 127 H Troponin I Total Protein 7.8 Albumin 3.6 Urine Color Straw Urine Appearance Clear Urine pH 6.0 Ur Specific [place] 1.004 Urine Protein 1+ H D Urine Glucose (UA) Negative Urine Ketones Negative Urine Blood Negative Urine Nitrite Negative Urine Bilirubin Negative Urine Urobilinogen Negative Ur Leukocyte Esterase Negative Urine WBC (Auto) 1 Urine RBC (Auto) 1 Ur Epithelial Cells Rare Urine Bacteria Rare Urine Mucus Rare 03/31/18 04/01/18 21:32 01:43 WBC RBC Hgb Hct MCV MCH MCHC RDW Plt Count MPV Neutrophils % Lymphocytes % Monocytes % Eosinophils % Basophils % Nucleated RBC % Sodium 140 Potassium 3.1 L Chloride 101 Carbon Dioxide 31 Anion Gap 8 BUN 16 Creatinine 0.9 Creat Clearance w eGFR > 60 Random Glucose 91 Calcium 8.1 L Total Bilirubin 0.5 D AST 19 ALT 23 Alkaline Phosphatase 112 Troponin I < 0.02 < 0.02 Total Protein 7.4 Albumin 3.4 Urine Color Urine Appearance Urine pH Ur Specific [place] Urine Protein Urine Glucose (UA) Urine Ketones Urine Blood Urine Nitrite Urine Bilirubin Urine Urobilinogen Ur Leukocyte Esterase Urine WBC (Auto) Urine RBC (Auto) Ur Epithelial Cells Urine Bacteria Urine Mucus ASSESSMENT/PLAN: 47 year old female with a hx of hypertension, asthma, and anemia presents to the hospital for chest pain and admitted for observation to r/o ACS and to treat hypokalemia #Chest Pain: rule out ACS -cardiology consultation appreciated -echocardiogram ordered -repeat EKG in AM -repeat troponin AM -ASA 81mg -lipid profile in AM -continuous cardiac monitoring #Hypokalemia: potassium 2.8 improved to 3.1 after ED repletion -measure magnesium -give another 40mEq Kdur now -recheck BMP in AM -EKG NSR w/ sinus arrhythmia and prolonged QT (493), flattened T wave in lead III -patient was on loop diuretic at home, hold this medication as it can exacerbate the hypokalemia #Hypertension: BP 165/95 -continue amlodipine 10mg QD -hold loop diuretic #Anemia: stable -continue iron supplementation #Asthma -continue albuterol -continue mometasone #FEN -No standing fluids -replete potassium and repeat BMP in AM -cardiac diet #Prophylaxis -early ambulation #Disposition -obs tele #Asthma Visit type - Emergency Visit Emergency Visit: Yes ED Registration Date: 04/01/18 Care time: The patient presented to the Emergency Department on the above date and was hospitalized for further evaluation of their emergent condition. - New Patient This patient is new to me today: Yes Date on this admission: 04/01/18 - Critical Care Critical Care patient: No Hospitalist Screening - Colonoscopy Questionnaire Colonoscopy Questionnaire: Colonoscopy Questionnaire - Patient: 50 - 75 years old and never had a screening colonoscopy: Unknown History of colon or rectal polyps, or CA: Unknown History of IBD, Crohn's disease or UC: Unknown History of abdominal radiation therapy as a child: Unknown - Relative: 1 with colon or rectal CA, or polyps at age 60 or younger: Unknown Colon or rectal CA diagnosed at age 45 or younger: Unknown Multiple relatives with colon or rectal CA: Unknown - Outcome: Screening Result: Negative Screen
--- NOTE | 2018-04-01 04:22 | PN ---
Teaching Attending Note Name of Resident: Joby Cazares ATTENDING PHYSICIAN STATEMENT I saw and evaluated the patient. I reviewed the resident's note and discussed the case with the resident. I agree with the resident's findings and plan as documented. SUBJECTIVE: 47-year-old female with past medical history significant for hypertension, asthma, and anemia presenting with chestpain for 4 days. Has nonproductive cough. Her chest pain was constant but now is only exacerbated with coughing. Her pain does radiate into her jaw and into her back. Noted to have severe hypokalemia. OBJECTIVE: Alert and in no acute respiratory. Vital Signs Period Temp Pulse Resp BP Sys/Stark Pulse Ox Last 24 Hr 99 F 86 18 165/95 99 HEENT: No Jaundice, eye redness or discharge, PERRLA, EOMI. Normocephalic, atraumatic. External ears are normal and hearing is grossly intact. No nasal discharge. Neck: Supple, nontender. No palpable adenopathy or thyromegaly. No JVD Chest: Good effort. Clear to auscultation and percussion. Heart: Regular. No S3, rub; 2/6 HOWARD Abdomen: Not distended, soft, nontender and no HSM. No rebound or guarding. Normoactive bowel sounds. Ext: Peripheral pulses intact. No leg edema. Skin: Warm and dry. No petechiae, rash or ecchymosis. Neuro: Alert. Oriented x3. CN 2-12 grossly intact. Sensation grossly intact in all four extremities and DTR are symmetric. Current Medications Generic Name Dose Route Start Last Admin Trade Name Freq PRN Reason Stop Dose Admin Amlodipine Besylate 20 mg 04/01/18 10:00 Norvasc - PO DAILY OJAN Mometasone Furoate 1 puff 04/01/18 10:00 Asmanex 110mcg - IH DAILY JOAN Potassium Chloride 40 meq 04/01/18 03:13 K-Dur - PO 04/01/18 03:14 ONCE ONE Home Medications Medication Instructions Recorded Albuterol Sulfate [Proair Hfa -] 1 - 2 inh PO BID 11/06/15 Amlodipine Besylate [Norvasc -] 20 mg PO DAILY #4 tablet 02/15/18 Furosemide [Lasix -] 20 mg PO DAILY #4 tab 02/15/18 Mometasone Furoate [Asmanex 110Mcg 1 inh IH DAILY 03/31/18 -] Abnormal Lab Results 03/31/18 03/31/18 04/01/18 21:32 21:32 01:43 Potassium 2.8 L* 3.1 L Chloride 97 L Creatinine 1.1 H Random Glucose 108 H Calcium 8.3 L 8.1 L Alkaline Phosphatase 127 H Urine Protein 1+ H D ASSESSMENT AND PLAN: 1. Atypical Chestpain - Patient being admitted to telemetry as an observation case to rule out ACS. Has nonspecific t wave changes on EKG with normal troponin. Will do serial EKG, troponin and get ECHO. Thusfar, no evidence of acute DE. No infiltrate, effusion or pneumothorax on CXR. 2. Hypokalemia - Likely due to diuretics. Check Mg level and continue IV and PO KCL. 3. DVT prophylaxis - Heparin 5000u sq tid 4. Advance directives - Full code
[2018-04-01] MEDS ORDERED: ALBUTEROL SO4 18 GM HFA INHALER IH PRN ×2 (04:27→04:29)
[2018-04-01 06:11] LABS: ANION GAP 6 (8-16); BLOOD UREA NITROGEN 12 mg/dL (7-18); CALCIUM 8.2 mg/dL (8.5-10.1); CHLORIDE 103 mmol/L (98-107); CO2 31 mmol/L (21-32); CREATININE 0.9 mg/dL (0.55-1.02); GLUCOSE,RANDOM 122 mg/dL (74-106); PHOSPHOROUS 2.6 mg/dL (2.5-4.9); POTASSIUM 3.1 mmol/L (3.5-5.1); SODIUM 140 mmol/L (136-145)
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
--- NOTE | 2018-04-01 09:47 | EKG ---
Test Reason : Blood Pressure : / mmHG Vent. Rate : 088 BPM Atrial Rate : 088 BPM P-R Int : 174 ms QRS Dur : 084 ms QT Int : 390 ms P-R-T Axes : 042 050 054 degrees QTc Int : 471 ms NORMAL SINUS RHYTHM NONSPECIFIC T WAVE ABNORMALITY PROLONGED QT ABNORMAL ECG WHEN COMPARED WITH ECG OF 15-FEB-2018 14:45, NONSPECIFIC T WAVE ABNORMALITY NOW EVIDENT IN LATERAL LEADS Confirmed by SCAR SANCHEZ, YAA ([id number]) on 04/01/2018 9:47:28 AM Referred By: Confirmed By:YAA ABBOTT MD
[2018-04-01] MEDS: amLODIPine BESYLATE 10 MG TABLET (FP) PO SCH (09:50)
[2018-04-01] MEDS ORDERED: MOMETASONE FUROATE 110 MCG/IH INHALER IH SCH (10:00)
[2018-04-01] MEDS ORDERED: amLODIPine BESYLATE 10 MG TABLET (FP) PO SCH (10:00)
[2018-04-01 10:04] LABS: HEMOGLOBIN 11.2 GM/dL (10.7-15.3); MCHC 33.9 g/dl (32.0-36.0); MEAN CELL VOLUME 82.8 fl (80-96); MEAN PLT VOLUME 7.9 fl (7.5-11.1); PLATELET COUNT 260 K/MM3 (134-434); RBC 3.98 M/mm3 (3.60-5.2); RDW 13.9 % (11.6-15.6); WHITE BLOOD COUNT 5.3 K/mm3 (4.0-10.0)
[2018-04-01] MEDS ORDERED: ACETAMINOPHEN 325 MG TABLET (FP) PO PRN (10:28)
[2018-04-01] MEDS ORDERED: ACETAMINOPHEN 325 MG TABLET (FP) ONE (11:22)
--- NOTE | 2018-04-01 11:30 | EKG ---
Test Reason : Blood Pressure : / mmHG Vent. Rate : 079 BPM Atrial Rate : 079 BPM P-R Int : 194 ms QRS Dur : 084 ms QT Int : 430 ms P-R-T Axes : 049 063 069 degrees QTc Int : 493 ms NORMAL SINUS RHYTHM WITH SINUS ARRHYTHMIA PROLONGED QT ABNORMAL ECG WHEN COMPARED WITH ECG OF 31-MAR-2018 20:27, NO SIGNIFICANT CHANGE WAS FOUND Confirmed by SCAR SANCHEZ, YAA ([id number]) on 04/01/2018 11:29:50 AM Referred By: Confirmed By:YAA ABBOTT MD
--- NOTE | 2018-04-01 13:03 | PN ---
Progress Note, Physician Chief Complaint: Ms King says she is still having chest pain. Says it is retrosternal and does not radiate. Worse with coughing and deep breathing. Some sob, ? secondary to asthma. No n/v. - Current Medication List Current Medications: Active Medications Acetaminophen (Tylenol -) 650 mg PO Q6H PRN PRN Reason: PAIN LEVEL 1-5 Last Admin: 04/01/18 11:27 Dose: 650 mg Albuterol Sulfate (Ventolin Hfa Inhaler -) 1 - 2 puff IH Q4H PRN PRN Reason: WHEEZING Amlodipine Besylate (Norvasc -) 10 mg PO DAILY [facility] Last Admin: 04/01/18 09:50 Dose: 10 mg Mometasone Furoate (Asmanex 110mcg -) 1 puff IH DAILY [facility] Last Admin: 04/01/18 09:49 Dose: 1 puff - Objective Vital Signs: Vital Signs Temperature 36.6 C 04/01/18 07:28 Pulse Rate 74 04/01/18 07:28 Respiratory Rate 16 04/01/18 07:28 Blood Pressure 154/97 04/01/18 07:28 O2 Sat by Pulse Oximetry (%) 97 04/01/18 07:28 Constitutional: Yes: No Distress, Calm, Obese Cardiovascular: Yes: Regular Rate and Rhythm. No: Gallop, Murmur, Rub Respiratory: Yes: Regular, CTA Bilaterally. No: Rales, Rhonchi, Wheezes Gastrointestinal: Yes: Normal Bowel Sounds, Soft. No: Distention, Tenderness Extremities: Yes: WNL Edema: No Labs: CBC, BMP 04/01/18 10:00 04/01/18 05:30 Problem List - Problems (1) Chest pain Assessment/Plan: -most consistent with pleurisy -cardiology consulted and appreciate assistance -cardiac enzymes x3 negative -undergoing stress test -if negative, will give short course of steroids and ibuprofen and be able to discharge today Code(s): R07.9 - CHEST PAIN, UNSPECIFIED Qualifiers: Chest pain type: pleurodynia Qualified Code(s): R07.81 - Pleurodynia (2) Hypokalemia Assessment/Plan: -chronic -on home replacement -replace today Code(s): E87.6 - HYPOKALEMIA (3) Asthma Assessment/Plan: -? if in mild exacerbation -continue asmanex and albuterol -short course steroids if stress test negative Code(s): J45.909 - UNSPECIFIED ASTHMA, UNCOMPLICATED Qualifiers: Asthma severity: mild Asthma persistence: intermittent Asthma complication type: uncomplicated Qualified Code(s): J45.20 - Mild intermittent asthma, uncomplicated (4) GERD (gastroesophageal reflux disease) Assessment/Plan: -will place on H2 jimmy if sent out on steroids for short course Code(s): K21.9 - GASTRO-ESOPHAGEAL REFLUX DISEASE WITHOUT ESOPHAGITIS Qualifiers: Esophagitis presence: esophagitis presence not specified Qualified Code(s) : K21.9 - Gastro-esophageal reflux disease without esophagitis (5) Hypertension Assessment/Plan: -continue amlodipine Code(s): I10 - ESSENTIAL (PRIMARY) HYPERTENSION Qualifiers: Hypertension type: essential hypertension Qualified Code(s): I10 - Essential (primary) hypertension (6) Obesity (BMI 30-39.9) Assessment/Plan: -outpatient weigh loss program Code(s): E66.9 - OBESITY, UNSPECIFIED
[2018-04-01 16:33] VITALS: BMI 33.6
[2018-04-02] MEDS: amLODIPine BESYLATE 10 MG TABLET (FP) PO SCH (09:26)
[2018-04-02 10:48] VITALS: TEMP 98.5
[2018-04-02 11:05] LABS: CHLORIDE 102 mmol/L (98-107); POTASSIUM 3.3 mmol/L (3.5-5.1); SODIUM 140 mmol/L (136-145)
[2018-04-02 11:06] LABS: BLOOD UREA NITROGEN 16 mg/dL (7-18)
[2018-04-02 11:10] LABS: ANION GAP 7 (8-16); CALCIUM 8.5 mg/dL (8.5-10.1); CO2 31 mmol/L (21-32); CREATININE 0.9 mg/dL (0.55-1.02); GLUCOSE,RANDOM 82 mg/dL (74-106); MAGNESIUM 2.1 mg/dL (1.8-2.4)
[2018-04-02] MEDS ORDERED: KCL 10 MEQ IVPB 10 MEQ/100 ML INFUS.BAG IVPB SCH (11:45)
--- NOTE | 2018-04-02 11:48 | PN ---
Progress Note, Physician - Current Medication List Current Medications: Active Medications Acetaminophen (Tylenol -) 650 mg PO Q6H PRN PRN Reason: PAIN LEVEL 1-5 Last Admin: 04/01/18 11:27 Dose: 650 mg Albuterol Sulfate (Ventolin Hfa Inhaler -) 1 - 2 puff IH Q4H PRN PRN Reason: WHEEZING Amlodipine Besylate (Norvasc -) 10 mg PO DAILY [facility] Last Admin: 04/02/18 09:26 Dose: 10 mg Enalaprilat (Vasotec Injection -) 1.25 mg IVPB ONCE ONE Stop: 04/02/18 12:01 Potassium Chloride (Potassium Chloride 10 Meq Premix Ivpb -) 10 meq in 100 mls @ 100 mls/hr IVPB Q60M [facility] Stop: 04/02/18 12:44 Mometasone Furoate (Asmanex 110mcg -) 1 puff IH DAILY [facility] Last Admin: 04/01/18 09:49 Dose: 1 puff - Objective Vital Signs: Vital Signs Temperature 98.5 F 04/02/18 10:00 Pulse Rate 77 04/02/18 10:00 Respiratory Rate 18 04/02/18 10:00 Blood Pressure 159/113 04/02/18 10:00 O2 Sat by Pulse Oximetry (%) 97 04/02/18 10:00 Labs: CBC, BMP 04/01/18 10:00 04/02/18 10:12 Problem List - Problems (1) Atypical chest pain Assessment/Plan: Pt for stress MIBI completeion today. If no significant ischemia, pt may be followed as outpatient from cardiac standpoint. Code(s): R07.89 - OTHER CHEST PAIN (2) Asthma Code(s): J45.909 - UNSPECIFIED ASTHMA, UNCOMPLICATED Qualifiers: Asthma severity: mild Asthma persistence: intermittent Asthma complication type: uncomplicated Qualified Code(s): J45.20 - Mild intermittent asthma, uncomplicated (3) Hypertension Assessment/Plan: On amlodipine 10 mg daily; BP still elevated. Will start enalapril (IVPB 1.25 mg prior to stress MIBI, then start PO). Code(s): I10 - ESSENTIAL (PRIMARY) HYPERTENSION Qualifiers: Hypertension type: essential hypertension Qualified Code(s): I10 - Essential (primary) hypertension (4) Obesity (BMI 30-39.9) Code(s): E66.9 - OBESITY, UNSPECIFIED (5) Hyperlipidemia Assessment/Plan: Consider starting statin. Weight control, dietary modification, and exercise will be important in long- term lipid management. Code(s): E78.5 - HYPERLIPIDEMIA, UNSPECIFIED (6) Hypokalemia Assessment/Plan: Pt for KCl prior to stress MIBI. ACEI started; f/u BUN/Cr, electrolytes. Code(s): E87.6 - HYPOKALEMIA
[2018-04-02] MEDS ORDERED: KCL 10 MEQ IVPB 10 MEQ/100 ML INFUS.BAG IVPB ONE (11:57)
[2018-04-02] MEDS ORDERED: ENALAPRILAT DIHYDRATE 1.25 MG/1 ML VIAL IVPB ONE (12:00)
[2018-04-02] MEDS ORDERED: POTASSIUM CHLORIDE 10 MEQ in SODIUM CHLORIDE 100 ML IVPB SCH (12:15)
--- NOTE | 2018-04-02 13:27 | EKG ---
Test Reason : Blood Pressure : / mmHG Vent. Rate : 068 BPM Atrial Rate : 068 BPM P-R Int : 154 ms QRS Dur : 082 ms QT Int : 432 ms P-R-T Axes : 000 038 040 degrees QTc Int : 459 ms POOR DATA QUALITY, INTERPRETATION MAY BE ADVERSELY AFFECTED NORMAL SINUS RHYTHM NORMAL ECG WHEN COMPARED WITH ECG OF 01-APR-2018 01:46, NO SIGNIFICANT CHANGE WAS FOUND Confirmed by ORLIN SANCHEZ, TOMASA ([id number]) on 04/02/2018 1:26:47 PM Referred By: Confirmed By:TOMASA ORDAZ MD
[2018-04-02] MEDS ORDERED: ENALAPRIL MALEATE 5 MG TABLET (FP) PO SCH (14:00)
[2018-04-02 15:36] VITALS: BP 153/93; PULSE 71
--- NOTE | 2018-04-02 16:12 | DS ---
Physical Examination Vital Signs: Vital Signs Temperature 36.9 C 04/02/18 15:00 Pulse Rate 71 04/02/18 15:00 Respiratory Rate 18 04/02/18 15:00 Blood Pressure 153/93 04/02/18 15:00 O2 Sat by Pulse Oximetry (%) 97 04/02/18 10:00 Labs: CBC, BMP 04/01/18 10:00 04/02/18 10:12 Discharge Summary Reason For Visit: CHEST PAIN Current Active Problems Chest pain (Acute) Hyperlipidemia (Acute) Condition: Stable - Instructions Diet, Activity, Other Instructions: resume previous diet and activity Referrals: Tiffanie Albert MD [Primary Care Provider] - Disposition: HOME - Home Medications Comprehensive Discharge Medication List: Ambulatory Orders Albuterol Sulfate [Proair Hfa] 8.5 gm IH BID #1 hfa.aer.ad 04/02/18 Amlodipine Besylate [Norvasc -] 10 mg PO DAILY #30 tablet 04/02/18 Furosemide [Lasix -] 20 mg PO DAILY #30 tab 04/02/18 Losartan Potassium 100 mg PO DAILY #30 tablet 04/02/18 Mometasone Furoate [Asmanex 110Mcg -] 1 inh IH DAILY #1 inhaler 04/02/18 Mometasone Furoate [Asmanex 110Mcg -] 1 puff IH DAILY #1 inhaler 04/02/18
[2018-04-02 17:26] LABS: ANION GAP 6 (8-16); BLOOD UREA NITROGEN 16 mg/dL (7-18); CALCIUM 8.8 mg/dL (8.5-10.1); CHLORIDE 100 mmol/L (98-107); CO2 34 mmol/L (21-32); CREATININE 1.1 mg/dL (0.55-1.02); GLUCOSE,RANDOM 84 mg/dL (74-106); POTASSIUM 3.5 mmol/L (3.5-5.1); SODIUM 140 mmol/L (136-145)
== END 2018-04-02 19:09 | disposition home or self-care (01) ==
LOC: JERFT 20:04 → JERBED 04-01 01:50 → UNDOADMOB 04-01 02:10 → JERBED 04-01 02:10 → J4W 04-01 16:52
PROVIDERS: ADMIT Internal Medicine; ATTEND Internal Medicine
PROC: 3E033GC Introduction of Other Therapeutic Substance into Peripheral Vein, Percutaneous Approach (ICD-10-PCS; principal; 2018-04-01)
PROC: 3E0F7GC Introduction of Other Therapeutic Substance into Respiratory Tract, Via Natural or Artificial Opening (ICD-10-PCS; 2018-04-01)
DX: R07.89 Other chest pain (principal); E87.6 Hypokalemia; I10 Essential (primary) hypertension; E78.5 Hyperlipidemia, unspecified; J45.909 Unspecified asthma, uncomplicated; K21.9 Gastro-esophageal reflux disease without esophagitis; D64.9 Anemia, unspecified; Z88.6 Allergy status to analgesic agent; E66.9 Obesity, unspecified; Z68.33 Body mass index [BMI] 33.0-33.9, adult
CPT/HCPCS: 36415; 71045-TC-FY; 78452-TC; 80048; 80053; 80061; 81003; 81015; 82550; 83721; 83735; 84100; 84443; 84484; 85025; 85027; 93005; 93010; 93017; 93306-TC; 99285-25; A9502; G0378; J7620

== ENCOUNTER 2019-01-12 13:18 | Emergency (ER) | payer BC ==
[2019-01-12 14:08] VITALS: BP 175/99; PULSE 98; TEMP 99.6; BMI 35.6
[2019-01-12] MEDS ORDERED: IBUPROFEN 400 MG TABLET (FP) PO ONE ×2 (15:09→15:14)
[2019-01-12] MEDS ORDERED: ALBUTEROL SO4 2.5/IPRATROPIUM 0.5 INH SOL 3 ML VIAL.NEB. NEB ONE ×2 (15:09→15:14)
--- NOTE | 2019-01-12 15:09 | PDOC ---
History of Present Illness - General Chief Complaint: Cold Symptoms Stated Complaint: FEVER /BODY ACHES Time Seen by Provider: 01/12/19 14:56 Past History - Travel Traveled outside of the country in the last 30 days: No Close contact w/someone who was outside of country & ill: No - Past Medical History Allergies/Adverse Reactions: Allergies Allergy/AdvReac Type Severity Reaction Status Date / Time codeine [Codeine] Allergy Verified 04/01/18 04:33 Home Medications: Ambulatory Orders Albuterol Sulfate [Proair Hfa] 8.5 gm IH BID #1 hfa.aer.ad 04/02/18 Amlodipine Besylate [Norvasc -] 10 mg PO DAILY #30 tablet 04/02/18 Furosemide [Lasix -] 20 mg PO DAILY #30 tab 04/02/18 Losartan Potassium 100 mg PO DAILY #30 tablet 04/02/18 Mometasone Furoate [Asmanex 110Mcg -] 1 inh IH DAILY #1 inhaler 04/02/18 Mometasone Furoate [Asmanex 110Mcg -] 1 puff IH DAILY #1 inhaler 04/02/18 Albuterol Sulfate Inhaler - [Ventolin HFA Inhaler -] 1 - 2 inh PO Q4H #1 inhaler 01/12/19 Amoxicillin - [Amoxicillin 500mg Capsule -] 500 mg PO BID #14 capsule 01/12/19 Dm/Acetaminophen/Doxylamine [Coricidin Hbp Cold-Multi Sympt] 10 ml PO TID #1 bottle 01/12/19 Hydralazine HCl 25 mg PO DAILY 01/12/19 Ondansetron [Zofran Odt -] 4 mg SL TID #10 od.tablet 01/12/19 Oseltamivir Phosphate [Tamiflu] 75 mg PO BID #10 capsule 01/12/19 Anemia: No Asthma: Yes Cancer: No Cardiac Disorders: Yes (Heart Murmur) CVA: No COPD: No CHF: No Dementia: No Diabetes: No GI Disorders: Yes (GERD) Disorders: No HTN: Yes Hypercholesterolemia: Yes Liver Disease: No Seizures: No Thyroid Disease: No - Family Disease History Family Disease History: Heart Disease: Father (htn) - Immunization History Td Vaccination: Yes Immunization Up to Date: Yes - Suicide/Smoking/Psychosocial Hx Smoking Status: No Smoking History: Never smoked Years of Tobacco Use: 0 Have you smoked in the past 12 months: No Number of Cigarettes Smoked Daily: 0 Cigars Per Day: 0 Hx Alcohol Use: No Drug/Substance Use Hx: No Substance Use Type: None Hx Substance Use Treatment: No Review of Systems - Review of Systems Able to Perform ROS?: Yes Comments:: 01/12/19 16:04 CONSTITUTIONAL: Present: Fever, chills, body aches Absent: diaphoresis, generalized weakness, malaise, loss of appetite HEENT: Present: rhinorrhea, nasal congestion, throat pain. Absent: difficulty swallowing, mouth swelling, ear pain, eye pain, visual Changes CARDIOVASCULAR: Absent: chest pain, loss of consciousness, palpitations, irregular heart rate, peripheral edema RESPIRATORY: Present: Cough, chest tightness Absent: shortness of breath, dyspnea with exertion, orthopnea, wheezing, stridor, hemoptysis GASTROINTESTINAL: Absent: abdominal pain, abdominal distension, nausea, vomiting, diarrhea, constipation, melena, hematochezia SKIN: Absent: rash, itching, pallor NEUROLOGIC: Present: headache Absent: focal weakness or paresthesias, dizziness, unsteady gait, seizure, mental status changes, bladder or bowel incontinence Is the patient limited Kyr[place]z proficient: No *Physical Exam - Vital Signs Last Vital Signs Temp Pulse Resp BP Pulse Ox 99.6 F 98 H 20 175/99 H 99 01/12/19 14:05 01/12/19 14:05 01/12/19 14:05 01/12/19 14:05 01/12/19 14:05 - Physical Exam Comments: 01/12/19 16:05 GENERAL: Well developed, well nourished. Awake and alert. No acute distress. HEENT: Normocephalic, atraumatic. PERRLA, EOMI. No conjunctival pallor. Sclera are non- icteric. Moist mucous membranes. Oropharynx is erythematous posteriorly. No exudate or edema. Uvula is midline. TM's are pearly peace, without bulging or erythema b/l. NECK: Supple. Full ROM. No JVD. Carotid pulses 2+ and symmetric, without bruits. No thyromegaly. No lymphadenopathy. CARDIOVASCULAR: Regular rate and rhythm. No murmurs, rubs, or gallops. Distal pulses are 2+ and symmetric. PULMONARY: No evidence of respiratory distress. Lungs clear to auscultation bilaterally. No wheezing, rales or rhonchi. ABDOMINAL: Soft. Non-tender. Non-distended. No rebound or guarding. No organomegaly. Normoactive bowel sounds. MUSCULOSKELETAL Normal range of motion at all joints. No bony deformities or tenderness. No CVA tenderness. EXTREMITIES: No cyanosis. No clubbing. No edema. No calf tenderness. SKIN: Warm and dry. Normal capillary refill. No rashes. No jaundice. NEUROLOGICAL: Alert, awake, appropriate. Cranial nerves 2-12 intact. No deficits to light touch and temperature in face, upper extremities and lower extremities. No motor deficits in the in face, upper extremities and lower extremities. Normoreflexic in the upper and lower extremities. Normal speech. Toes are down- going bilaterally. Gait is normal without ataxia. PSYCHIATRIC: Cooperative. Good eye contact. Appropriate mood and affect. Moderate Sedation - Procedure Monitoring Vital Signs: Procedure Monitoring Vital Signs Temperature 99.6 F 01/12/19 14:05 Pulse Rate 98 H 01/12/19 14:05 Respiratory Rate 20 01/12/19 14:05 Blood Pressure 175/99 H 01/12/19 14:05 O2 Sat by Pulse Oximetry (%) 99 01/12/19 14:05 Medical Decision Making - Medical Decision Making 01/12/19 18:09 patient is a 48-year-old female who presents to the emergency department today for 2 days of fevers, body aches, chills, sore throat and cough. Patient states that she has tried Motrin with some relief of her symptoms. However, patient states that when the medication wears off her symptoms return. She did not receive a flu shot this year. Patient states that both her grandchildren have been sick at home recently. A: Flulike symptoms. P: Rapid strep and flu ordered. Positive for both flu a and strep throat at this time. Patient within treatment window for Tamiflu. Will send amoxicillin to the pharmacy for treatment of strep throat. Symptomatic relief also given. Discharge home with PCP follow-up I discussed the physical exam findings, ancillary test results and final diagnoses with the patient. I answered all of the patient's questions. The patient was satisfied with the care received and felt comfortable with the discharge plan and treatment plan. The Patient agrees to follow up with the primary care physician/specialist within 24-72 hours. Return precautions were given. *DC/Admit/Observation/Transfer Diagnosis at time of Disposition: Strep throat, Influenza A - Discharge Dispostion Disposition: HOME Condition at time of disposition: Stable Decision to Admit order: No - Prescriptions Prescriptions: Albuterol Sulfate Inhaler - [Ventolin HFA Inhaler -] 1 - 2 inh PO Q4H #1 inhaler Amoxicillin - [Amoxicillin 500mg Capsule -] 500 mg PO BID #14 capsule Dm/Acetaminophen/Doxylamine [Coricidin Hbp Cold-Multi Sympt] 10 ml PO TID #1 bottle Ondansetron [Zofran Odt -] 4 mg SL TID #10 od.tablet Oseltamivir Phosphate [Tamiflu] 75 mg PO BID #10 capsule - Referrals Referrals: Shay Bundy MD [Staff Physician] - - Patient Instructions Printed Discharge Instructions: DI for Strep Throat, DI for Influenza -- Adult Additional Instructions: You have the flu. This is a virus that will get better on its own in approximately 7-10 days. You also have strep throat You will most likely have a fever for 7-10 days because of the flu. This is to be expected. Drink plenty of fluids to prevent dehydration and get plenty of rest. Warm tea and cough drops may help your symptoms as well. Take the tamiflu twice a day for 5 days to help reduce the symptoms of the flu. This medication will not cure the flu. Take the Amoxicillin twice a day for 7 days Take Motrin as directed for pain and fever. Take all other medications as prescribed. Follow up with your primary care doctor this week Return to the ED for difficulty breathing, shortness of breath, weakness, or if you have any other changes in your symptoms. - Post Discharge Activity Forms/Work/School Notes: Back to Work
--- NOTE | 2019-01-13 10:22 | EKG ---
Test Reason : Blood Pressure : / mmHG Vent. Rate : 087 BPM Atrial Rate : 087 BPM P-R Int : 170 ms QRS Dur : 070 ms QT Int : 366 ms P-R-T Axes : -01 051 014 degrees QTc Int : 440 ms NORMAL SINUS RHYTHM SEPTAL INFARCT , AGE UNDETERMINED ABNORMAL ECG WHEN COMPARED WITH ECG OF 10-AUG-2018 18:26, NONSPECIFIC T WAVE ABNORMALITY HAS REPLACED INVERTED T WAVES IN LATERAL LEADS Confirmed by SCAR SANCHEZ, YAA ([id number]) on 01/13/2019 10:22:26 AM Referred By: RADHA Confirmed By:YAA ABBOTT MD
== END 2019-01-12 16:16 | disposition home or self-care (01) ==
LOC: JERFT 13:18
PROC: 3E0F7GC Introduction of Other Therapeutic Substance into Respiratory Tract, Via Natural or Artificial Opening (ICD-10-PCS; principal; 2019-01-12)
DX: J09.X2 Influenza due to identified novel influenza A virus with other respiratory manifestations (principal); J02.0 Streptococcal pharyngitis; B95.0 Streptococcus, group A, as the cause of diseases classified elsewhere; I10 Essential (primary) hypertension; K21.9 Gastro-esophageal reflux disease without esophagitis; J45.909 Unspecified asthma, uncomplicated; E78.00 Pure hypercholesterolemia, unspecified
CPT/HCPCS: 87804; 87880; 93005; 93010; 99281-25

== ENCOUNTER 2019-01-27 18:43 | Emergency (ER) | payer BC ==
[2019-01-27 18:49] VITALS: TEMP 98.3; BMI 35.7
--- NOTE | 2019-01-27 20:28 | PDOC ---
Attending Attestation - HPI HPI: 01/27/19 21:15 The patient is a 48 year old female with a past medical history of HTN, HLD, GERD, and asthma here today for evaluation of elevated blood pressure. Patient went to her ENT doctors office for evaluation of difficulty swallowing and was sent to the ER when her blood pressure became elevated. She reports bilateral frontal headache, left sided chest pain just under the breast, shortness of breath, lower extremity edema, and increased urinary frequency. Patient denies headache, lightheadedness. Denies fever, chills. Denies chest pain, shortness of breath. Denies nausea, vomiting, diarrhea, abdominal pain. Denies lower extremity edema. Denies urinary symptoms. Denies neurologic symptoms. Denies travel or suspicious food intake. Allergies: codeine - Physicial Exam PE: 01/27/19 21:15 Constitutional: Awake, alert, oriented. No acute distress. Head: Normocephalic. Atraumatic Eyes: PERRL. EOMI. Conjunctivae are not pale. ENT: Mucous membranes are moist and intact. Posterior pharynx without exudates or erythema. Uvula midline. Neck: Supple. Full ROM. No lymphadenopathy. Cardiovascular: Regular rate. Regular rhythm. S1, S2 regular. Distal pulses are 2+ and symmetric. Pulmonary/Chest: No evidence of respiratory distress. Clear to auscultation bilaterally No wheezing, rales or rhonchi. Abdominal: Soft and non-distended. There is no tenderness. No rebound, guarding or rigidity. No organomegaly. No palpable masses. Good bowel sounds. Back: No CVA tenderness. Musculoskeletal: + 1+ pitting edema in left lower extremity and trace edema in right lower extremity. +limited range of motion in left knee. No cyanosis. No clubbing. Full range of motion in all extremities. No calf tenderness. Radial/ pedal pulses are intact and 2+ bilaterally Skin: Skin is warm and dry. No petechiae. No purpura. Neurological: Alert and oriented to person, place, and time. Cranial nerves II -XII are grossly intact. Normal speech. Strength is grossly symmetric. No sensory deficits. Psychiatric: Good eye contact. Normal interaction, affect and behavior. <Kalin Dinero - Last Filed: 01/27/19 21:14> - Resident Resident Name: Gerald Silver - ED Attending Attestation I have performed the following: I have examined & evaluated the patient, The case was reviewed & discussed with the resident, I agree w/resident's findings & plan, Exceptions are as noted - Medical Decision Making 01/27/19 20:28 I, Dr. Anisa Alcaraz, DO, attest that this document has been prepared under my direction and personally reviewed by me in its entirety. I further attest, that it accurately reflects all work, treatment, procedures and medical decision -making performed by me. 01/27/19 21:10 a/p: 48yo female with multiple complaints -atypical L sided cp, no pleuritic component, no rashes, no reproducible chest wall pain, but pain to L lateral breast in midaxillary line x 3 days, will send trop, ekg -LE swelling x 1 day with L knee pain laterally- denies trauma or recent surgery , calf ttp, will send for duplex ultrasound, xray -gayle and elevated bp- took her norvasc tonight and bp improved but still with gayle , will send labs, head ct, neuro intact, and no focal findings -pt has been ambulatory in the ED, but with a limp -will give reglan and tylenol for the gayle -will monitor and reassess 01/27/19 22:38 bnp and trop negative 01/27/19 22:39 no dvt on ultrasound 01/27/19 23:[address] negative 01/28/19 01:47 xray shows mild arthritic changes to the L knee pt stable for dc to home if headache improved 01/28/19 01:57 vss <Anisa Alcaraz - Last Filed: 01/28/19 01:57> Heart Score/ECG Review - ECG Intrepretation Comment:: 01/28/19 00:32 sinus at 67 with 1st degree av block, nl axis, no acute st/t wave findings <Anisa Alcaraz - Last Filed: 01/28/19 01:57> Attestations - Attestations 01/27/19 21:15 Documentation prepared by JAZMYN Beckham, acting as biomedical engineering professor for Anisa Alcaraz DO. <Kalin Dinero - Last Filed: 01/27/19 21:14>
[2019-01-27] MEDS ORDERED: ACETAMINOPHEN 500 MG TABLET (FP) PO ONE (20:40)
--- NOTE | 2019-01-27 20:41 | PDOC ---
History of Present Illness - General Chief Complaint: Blood Pressure Problem Stated Complaint: HYPERTENSION Time Seen by Provider: 01/27/19 20:15 History Source: Patient, Old Records Exam Limitations: No Limitations - History of Present Illness Initial Comments: HPI: 48 y/o female presenting to [facility] ER on referral from Dr. [facility] for elevated blood pressure and headache. BP was elevated to 201/110. Took evening hydrochlorothiazide in the office. Headache started mild and increased in intensity. Pain is localized to bilateral frontal regions. No change in vision or hearing. States she has headaches at least once a week. Usually manages with Tylenol or Motrin. Has not taken any OTC medication today. Is three weeks s/p left lasik surgery. Was being evaluated by ENT office for chronic difficulty swallowing both solids and liquids. PCP: Dr. Fraga Gasoline Engine Inspector: Dr. Escobar ENT: Dr. Eckert Past History - Past Medical History Allergies/Adverse Reactions: Allergies Allergy/AdvReac Type Severity Reaction Status Date / Time codeine [Codeine] Allergy Verified 01/27/19 18:46 Home Medications: Ambulatory Orders Albuterol Sulfate [Proair Hfa] 8.5 gm IH BID #1 hfa.aer.ad 04/02/18 Amlodipine Besylate [Norvasc -] 10 mg PO DAILY #30 tablet 04/02/18 Furosemide [Lasix -] 20 mg PO DAILY #30 tab 04/02/18 Losartan Potassium 100 mg PO DAILY #30 tablet 04/02/18 Mometasone Furoate [Asmanex 110Mcg -] 1 inh IH DAILY #1 inhaler 04/02/18 Mometasone Furoate [Asmanex 110Mcg -] 1 puff IH DAILY #1 inhaler 04/02/18 Albuterol Sulfate Inhaler - [Ventolin HFA Inhaler -] 1 - 2 inh PO Q4H #1 inhaler 01/12/19 Amoxicillin - [Amoxicillin 500mg Capsule -] 500 mg PO BID #14 capsule 01/12/19 Dm/Acetaminophen/Doxylamine [Coricidin Hbp Cold-Multi Sympt] 10 ml PO TID #1 bottle 01/12/19 Hydralazine HCl 25 mg PO DAILY 01/12/19 Ondansetron [Zofran Odt -] 4 mg SL TID #10 od.tablet 01/12/19 Oseltamivir Phosphate [Tamiflu] 75 mg PO BID #10 capsule 01/12/19 Anemia: No Asthma: Yes Cancer: No Cardiac Disorders: Yes (Heart Murmur) CVA: No COPD: No CHF: No Dementia: No Diabetes: No Hx Glaucoma: Yes (R and L) GI Disorders: Yes (GERD) Disorders: No HTN: Yes Hypercholesterolemia: Yes Liver Disease: No Seizures: No Thyroid Disease: No - Surgical History Other Surgical History: Lasik Surgery, Left eye (2019) - Family Disease History Family Disease History: Heart Disease: Father (htn) - Immunization History Td Vaccination: Yes Immunization Up to Date: Yes - Suicide/Smoking/Psychosocial Hx Smoking Status: No Smoking History: Never smoked Years of Tobacco Use: 0 Have you smoked in the past 12 months: No Number of Cigarettes Smoked Daily: 0 Cigars Per Day: 0 Hx Alcohol Use: No Drug/Substance Use Hx: No Substance Use Type: None Hx Substance Use Treatment: No Review of Systems - Review of Systems Able to Perform ROS?: Yes Comments:: In addition to that documented in the HPI above, the additional ROS was obtained : Constitutional: Denies fevers or chills Head: Per HPI ENMT: Denies sore throat CV: Endorses left sided chest pain directly under her the underwire bra line Resp: Endorses chronic and unchanged SOB when lying flat GI: Denies vomiting or diarrhea : Endorses increased urination. Denies painful urination or hematuria. MSK: Endorses left knee pain unable to recall duration, denies trauma to the area Skin: Denies new rashes Neuro: Denies new numbness or tingling or weakness Endocrine: Denies polyuria Heme: Denies bleeding or bruising *Physical Exam - Vital Signs Last Vital Signs Temp Pulse Resp BP Pulse Ox 98.3 F 93 H 18 159/94 97 01/27/19 18:47 01/27/19 18:47 01/27/19 18:47 01/27/19 18:47 01/27/19 18:47 - Physical Exam Comments: Constitutional: Well-developed, well-nourished adult female in no acute distress or obvious discomfort. Found semi-fowlers on hospital bed. Alert and oriented x4. Answered all questions appropriately and completely. Speech was non -labored, non-pressured. Head: Normocephalic. No obvious external signs of trauma. Eyes: PERRL. EOMI. Lateral nystagmus to R and L that extinguishes. Sclerae white. Conjunctiva moist and not injected. Ears: Hearing grossly intact. Nose: No nasal discharge. Throat: Oral cavity and pharynx normal. No inflammation, swelling, exudate, or lesions. Uvula midline. Able to move tongue to left and right. Neck: Supple, trachea is midline. Cardiovascular / Chest: Regular rate and regular rhythm. No murmur, rubs, clicks, or gallops. Peripheral pulses: radial pulses full. Trace pretibial edema. Pain to left side of chest just under lower edge of bra, worse with palpation. Respiratory: Breathing unlabored. Equal chest rise and fall. Clear to auscultation bilaterally. No stridor, no wheezing, no rhonchi. Gastrointestinal: abdomen is soft, non-tender, non-distended. Neuro: Alert and oriented. Moving all four extremities spontaneously. No focal deficits. Cranial nerves intact. Sensation to all four extremities intact. Upper and lower extremity: proximal and distal strength 5/5. Electrician Station Assistant strength 5/5 - equal and symmetric. Plantar flexion and dorsiflexion 5/5. No nuchal rigidity. Gait normal. Intact rapid alternating movements and finger to nose. MSK: Pain to lateral aspect of left knee without swelling, ecchymosis, erythema , or warmth. Skin: Warm, dry, and intact. : No R or L CVA tenderness. Psych: Affect: appropriate. Mood: normal. ED Treatment Course - LABORATORY CBC & Chemistry Diagram: 01/27/19 20:50 01/27/19 20:50 Medical Decision Making - Medical Decision Making *Reviewed vital signs, nursing notes, and prior visit documentation (if available). 48 y/o female presenting from clinic for headache and HTN. BP has downtrend following evening dose of hydrochlorothiazide. Suspect tension headache given band like pattern, increasing in intensity, and persistence despite decrease in BP. Low suspicion for hypertensive emergency. Suspect chest pain is secondary to underwire bra given location. Will obtain basic labs, troponin, BNP, EKG, and CXR to evaluate for end organ damage. Will obtain left knee xray and lower extremity vascular U/S. Will obtain UA, Upreg, and urine culture given urinary frequency. Low suspicion for cystitis. Suspect likely secondary to recent addition of HCTZ. Ordered Tylenol and Reglan for symptom relief. Head CT unremarkable for acute intracranial pathology. U/S unremarkable for DVT. Knee xray remarkable for degenerative changes. CBC unremarkable for leukocytosis. CMP unremarkable for significant electrolyte derangement. Troponin not elevated. BNP not elevated. No obvious signs of end organ damage. Pt reassessed and states she feels better. Headache has improved with Tylenol. Continue to suspect tension headache. Discussed imaging and laboratory results with pt. Answered all questions. Provided return precautions. Pt expressed verbal understanding and agreement with plan to discharge home with outpatient follow up. *DC/Admit/Observation/Transfer Diagnosis at time of Disposition: Arthritis of knee, Headache in front of head, Urinary frequency, Localized swelling of both lower legs Hypertension Qualifiers: Hypertension type: unspecified Qualified Code(s): I10 - Essential (primary) hypertension - Discharge Dispostion Disposition: HOME Condition at time of disposition: Good Decision to Admit order: No - Referrals Schedule a call back: Urine Culture - Patient Instructions Printed Discharge Instructions: DI for High Blood Pressure Additional Instructions: You were seen today for a headache, elevated blood pressure, and left knee pain. Your Head CT and DVT ultrasound were normal. The knee xray showed degenerative changes suggestive for osteoarthritis. Your blood and urine tests were normal. The final urine test will take two days to complete. The hospital will call if the results are positive. Your headache was likely a tension headache, meaning it was unrelated to your blood pressure. You can take over the counter Tylenol or Advil as needed for pain. Take as directed on the package insert. Do not exceed the recommended dosage. You need to talk to your doctor about your elevated blood pressure. Follow up with your primary care doctor within the next 3-4 days. You will need to call to make an appointment. The number is included in this packet. A copy of todays results are attached to this packet. Take it to the appointment so your doctor can review them. Go to the nearest emergency department if your condition worsens or you feel like you need additional emergency evaluation. Print Language: THAI - Post Discharge Activity Forms/Work/School Notes: Back to Work
[2019-01-27] MEDS ORDERED: METOCLOPRAMIDE HCL INJECTION 10 MG/2 ML VIAL IVPUSH ONE (20:51)
[2019-01-27] MEDS ORDERED: METOCLOPRAMIDE HCL INJECTION 10 MG/2 ML VIAL ONE (21:01)
[2019-01-27] MEDS ORDERED: ACETAMINOPHEN 325 MG TABLET (FP) ONE (21:01)
[2019-01-27 21:29] LABS: BASO % 0.7 % (0-2.0); EOS % 1.5 % (0-4.5); HEMATOCRIT 34.2 % (32.4-45.2); HEMOGLOBIN 11.3 GM/dL (10.7-15.3); LYMPH % 24.1 % (8-40); MCH 27.7 pg (25.7-33.7); MCHC 33.1 g/dl (32.0-36.0); MEAN CELL VOLUME 83.5 fl (80-96); MEAN PLT VOLUME 8.3 fl (7.5-11.1); MONO % 7.7 % (3.8-10.2); PLATELET COUNT 281 K/MM3 (134-434); RBC 4.09 M/mm3 (3.60-5.2); RDW 15.1 % (11.6-15.6); WHITE BLOOD COUNT 7.5 K/mm3 (4.0-10.0)
[2019-01-27 21:55] LABS: ALBUMIN 3.7 g/dl (3.4-5.0); ALK PHOS 137 U/L (45-117); ANION GAP 9 MMOL/L (8-16); BILIRUBIN,TOTAL 0.5 mg/dL (0.2-1); BLOOD UREA NITROGEN 15 mg/dL (7-18); CALCIUM 8.7 mg/dL (8.5-10.1); CHLORIDE 106 mmol/L (98-107); CO2 26 mmol/L (21-32); CREATININE 0.9 mg/dL (0.55-1.3); GLUCOSE,RANDOM 84 mg/dL (74-106); POTASSIUM 3.4 mmol/L (3.5-5.1); SGOT/AST 23 U/L (15-37); SGPT/ALT 36 U/L (13-61); SODIUM 141 mmol/L (136-145); TOT PROT 7.4 g/dl (6.4-8.2)
[2019-01-27 21:59] LABS: EPI CELLS 0.5 /HPF (0-5); HYALINE CASTS 1 /hpf (0-8); PH,URINE 6.5 (5.0-8.0); URINE APPEARANCE CLEAR; URINE BACTERIA 67.9 /hpf (NEGATIVE); URINE BILIRUBIN NEGATIVE (NEGATIVE); URINE COLOR YELLOW; URINE GLUCOSE (UA) NEGATIVE (NEGATIVE); URINE KETONE NEGATIVE (NEGATIVE); URINE LEUK ESTERASE NEGATIVE (NEGATIVE); URINE NITRITE NEGATIVE (NEGATIVE); URINE PROTEIN 1+ (NEGATIVE); URINE RBC 1 /hpf (0-4); URINE UROBILINOGEN 0.2 mg/dL (0.2-1.0); URINE WBC 1 /hpf (0-5)
[2019-01-28 01:54] VITALS: BP 140/85; PULSE 64
--- NOTE | 2019-01-28 11:50 | EKG ---
Test Reason : Blood Pressure : / mmHG Vent. Rate : 067 BPM Atrial Rate : 067 BPM P-R Int : 202 ms QRS Dur : 074 ms QT Int : 434 ms P-R-T Axes : 027 031 047 degrees QTc Int : 458 ms NORMAL SINUS RHYTHM SEPTAL INFARCT (CITED ON OR BEFORE 12-JAN-2019) ABNORMAL ECG WHEN COMPARED WITH ECG OF 12-JAN-2019 15:16, NONSPECIFIC T WAVE ABNORMALITY NO LONGER EVIDENT IN INFERIOR LEADS Confirmed by TOMASA ORDAZ MD ([id number]) on 01/28/2019 11:50:15 AM Referred By: Confirmed By:TOMASA ORDAZ MD
== END 2019-01-28 02:22 | disposition home or self-care (01) ==
LOC: JER 18:43
PROC: 3E033GC Introduction of Other Therapeutic Substance into Peripheral Vein, Percutaneous Approach (ICD-10-PCS; principal; 2019-01-27)
DX: I10 Essential (primary) hypertension (principal); R51 Headache; R35.0 Frequency of micturition; M79.89 Other specified soft tissue disorders
CPT/HCPCS: 36415; 70450-TC; 71046-TC-FY; 73562-TC-LT-FY; 80053; 81003; 82550; 83880; 84484; 84703; 85025; 87086; 93005; 93010; 93970-TC; 99283-25

== ENCOUNTER 2019-07-05 11:04 | Emergency (ER) | payer BC ==
[2019-07-05 11:17] VITALS: BMI 31.8
[2019-07-05] MEDS ORDERED: IBUPROFEN 600 MG TABLET (FP) PO ONE ×2 (11:57→12:00)
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
[2019-07-05 13:22] VITALS: BP 185/91; PULSE 88; TEMP 98.5
== END 2019-07-05 13:30 | disposition home or self-care (01) ==
LOC: JERFT 11:04
DX: S80.12XA Contusion of left lower leg, initial encounter (principal); Y04.2XXA Assault by strike against or bumped into by another person, initial encounter; Y93.89 Activity, other specified; Y92.038 Other place in apartment as the place of occurrence of the external cause; Y99.8 Other external cause status; Y07.499 Other family member, perpetrator of maltreatment and neglect; I10 Essential (primary) hypertension
CPT/HCPCS: 73562-TC-LT-FY; 73590-TC-LT-FY; 99282-25

== ENCOUNTER 2019-07-19 14:09 | Inpatient (IN) | payer BC ==
--- NOTE | 2019-07-19 14:23 | PDOC ---
Rapid Medical Evaluation Medical Evaluation: Allergies Allergy/AdvReac Type Severity Reaction Status Date / Time codeine [Codeine] Allergy Verified 07/05/19 11:14 07/19/19 14:17 I have performed a brief in-person evaluation of this patient. The patient presents with a chief complaint of: erythema/swelling to L leg x 2 weeks, worsening x 5days, +nausea x couple of days Pertinent physical exam findings: marked tenderness/warmth/erythema to LLE I have ordered the following: labs, xray Discharge Disposition - Diagnosis Cellulitis - Discharge Dispostion Condition at time of disposition: Stable - Referrals - Patient Instructions - Post Discharge Activity
[2019-07-19 14:56] LABS: BASO % 0.6 % (0-2.0); EOS % 0.8 % (0-4.5); HEMATOCRIT 33.8 % (32.4-45.2); HEMOGLOBIN 11.4 GM/dL (10.7-15.3); MCH 27.9 pg (25.7-33.7); MCHC 33.8 g/dl (32.0-36.0); MEAN CELL VOLUME 82.7 fl (80-96); MEAN PLT VOLUME 8.5 fl (7.5-11.1); MONO % 9.7 % (3.8-10.2); NEUT % 71.9 % (42.8-82.8); PLATELET COUNT 296 K/MM3 (134-434); RBC 4.09 M/mm3 (3.60-5.2); RDW 14.6 % (11.6-15.6); WHITE BLOOD COUNT 8.6 K/mm3 (4.0-10.0)
[2019-07-19 15:12] LABS: ALBUMIN 3.3 g/dl (3.4-5.0); BILIRUBIN,TOTAL 0.5 mg/dL (0.2-1); BLOOD UREA NITROGEN 15.3 mg/dL (7-18); CALCIUM 8.6 mg/dL (8.5-10.1); CREATININE 1.1 mg/dL (0.55-1.3); TOT PROT 7.2 g/dl (6.4-8.2)
[2019-07-19] MEDS ORDERED: CEFAZOLIN 2 GM in DEXTROSE 5%-WATER - 50 ML IVPB ONE (16:30)
[2019-07-19] MEDS ORDERED: SODIUM CHLORIDE 0.9% 500 ML INFUS.BAG IV ONE (16:31)
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
[2019-07-19] MEDS ORDERED: IBUPROFEN 600 MG TABLET (FP) PO ONE ×2 (16:37→16:50)
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
[2019-07-19] MEDS ORDERED: CEFAZOLIN 1 GM/D5W 2 GM/100 ML BAG ONE (16:50)
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
[2019-07-19] MEDS: HEPARIN NA (PORCINE) 5,000 UNITS/ML 1ML VIAL SQ SCH (23:32)
[2019-07-19] MEDS: hydrALAZINE HCL 25 MG TABLET (FP) PO SCH (23:32)
[2019-07-20 05:34] VITALS: BMI 32.2
[2019-07-20] MEDS: ACETAMINOPHEN 325 MG TABLET (FP) PO PRN ×3 (06:12→21:34)
[2019-07-20 06:46] LABS: BASO % 0.5 % (0-2.0); EOS % 1.8 % (0-4.5); HEMOGLOBIN 10.9 GM/dL (10.7-15.3); LYMPH % 16.7 % (8-40); MCH 28.2 pg (25.7-33.7); MEAN PLT VOLUME 8.6 fl (7.5-11.1); MONO % 8.5 % (3.8-10.2); NEUT % 72.5 % (42.8-82.8); PLATELET COUNT 251 K/MM3 (134-434); RBC 3.85 M/mm3 (3.60-5.2); RDW 14.1 % (11.6-15.6); WHITE BLOOD COUNT 6.7 K/mm3 (4.0-10.0)
[2019-07-20 07:01] LABS: BILIRUBIN,TOTAL 0.7 mg/dL (0.2-1); BLOOD UREA NITROGEN 16.5 mg/dL (7-18); CALCIUM 8.3 mg/dL (8.5-10.1); TOT PROT 6.6 g/dl (6.4-8.2)
[2019-07-20] MEDS ORDERED: LOSARTAN POTASSIUM 100 MG TABLET PO SCH (10:00)
[2019-07-20] MEDS ORDERED: hydrALAZINE HCL 25 MG TABLET (FP) PO SCH (10:00)
[2019-07-20] MEDS: PANTOPRAZOLE 40 MG TABLET (FP) PO SCH (10:39)
[2019-07-20] MEDS: amLODIPine BESYLATE 10 MG TABLET (FP) PO SCH (10:40)
[2019-07-20] MEDS: FUROSEMIDE 20 MG TABLET (FP) PO SCH (10:40)
[2019-07-20] MEDS: hydrALAZINE HCL 25 MG TABLET (FP) PO SCH ×2 (10:40→21:36)
[2019-07-20] MEDS: HEPARIN NA (PORCINE) 5,000 UNITS/ML 1ML VIAL SQ SCH ×2 (10:45→21:36)
[2019-07-20] MEDS ORDERED: LOSARTAN POTASSIUM 50 MG TABLET (FP) PO SCH (11:27)
[2019-07-20] MEDS: LOSARTAN POTASSIUM 50 MG TABLET (FP) PO SCH (12:36)
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
[2019-07-20] MEDS ORDERED: ceFAZolin SODIUM 1 GM VIAL ONE ×2 (13:40→21:28)
[2019-07-20] MEDS ORDERED: DEXTROSE 5%-WATER - 50 ML IVPB ONE ×2 (13:41→21:28)
[2019-07-20] MEDS: CEFAZOLIN 1 GM in DEXTROSE 5%-WATER - 50 ML IVPB SCH ×2 (14:37→21:36)
[2019-07-20] MEDS: POTASSIUM CHLORIDE TABS 20 MEQ TABLET.ER (FP) PO SCH ×2 (16:04→21:35)
--- NOTE | 2019-07-20 18:08 | PN ---
Progress Note, Physician - Current Medication List Current Medications: Active Medications Acetaminophen (Tylenol -) 650 mg PO Q6H PRN PRN Reason: PAIN LEVEL 6-10 Last Admin: 07/20/19 13:57 Dose: 650 mg Amlodipine Besylate (Norvasc -) 10 mg PO DAILY [facility] Last Admin: 07/20/19 10:40 Dose: 10 mg Furosemide (Lasix -) 20 mg PO DAILY [facility] Last Admin: 07/20/19 10:40 Dose: 20 mg Heparin Sodium (Porcine) (Heparin -) 5,000 unit SQ BID [facility] Last Admin: 07/20/19 10:45 Dose: 5,000 unit Hydralazine HCl (Apresoline -) 25 mg PO BID [facility] Last Admin: 07/20/19 10:40 Dose: 25 mg Cefazolin Sodium 1 gm/ (Dextrose) 50 mls @ 100 mls/hr IVPB Q8H-IV [facility] Last Admin: 07/20/19 14:37 Dose: 100 mls/hr Losartan Potassium (Cozaar -) 100 mg PO DAILY [facility] Last Admin: 07/20/19 12:36 Dose: 100 mg Pantoprazole Sodium (Protonix -) 40 mg PO DAILY [facility] Last Admin: 07/20/19 10:39 Dose: 40 mg Potassium Chloride (K-Dur -) 40 meq PO BID [facility] Last Admin: 07/20/19 16:04 Dose: 40 meq - Objective Vital Signs: Vital Signs Temperature 99.8 F H 07/20/19 14:20 Pulse Rate 88 07/20/19 14:20 Respiratory Rate 18 07/20/19 14:20 Blood Pressure 141/80 07/20/19 14:20 O2 Sat by Pulse Oximetry (%) 98 07/20/19 09:00 Constitutional: Yes: No Distress HENT: Yes: Atraumatic Neck: Yes: Supple Cardiovascular: Yes: Regular Rate and Rhythm Respiratory: Yes: CTA Bilaterally Gastrointestinal: Yes: Normal Bowel Sounds Extremities: Yes: Other (llex cellulitis) Edema: LLE: Trace Neurological: Yes: Alert, Oriented Labs: CBC, BMP 07/20/19 06:00 07/20/19 06:00 Problem List - Problems (1) Cellulitis Assessment/Plan: iv abx id consult prn pain meds Code(s): L03.90 - CELLULITIS, UNSPECIFIED Qualifiers: Site of cellulitis: extremity Site of cellulitis of extremity: lower extremity Laterality: left Qualified Code(s): L03.116 - Cellulitis of left lower limb (2) Asthma Assessment/Plan: stable Code(s): J45.909 - UNSPECIFIED ASTHMA, UNCOMPLICATED Qualifiers: Asthma severity: mild Asthma persistence: intermittent Asthma complication type: uncomplicated Qualified Code(s): J45.20 - Mild intermittent asthma, uncomplicated (3) GERD (gastroesophageal reflux disease) Assessment/Plan: on protonix Code(s): K21.9 - GASTRO-ESOPHAGEAL REFLUX DISEASE WITHOUT ESOPHAGITIS Qualifiers: Esophagitis presence: without esophagitis Qualified Code(s): K21.9 - Gastro -esophageal reflux disease without esophagitis (4) Hypertension Assessment/Plan: on meds monitor Code(s): I10 - ESSENTIAL (PRIMARY) HYPERTENSION Qualifiers: Hypertension type: essential hypertension Qualified Code(s): I10 - Essential (primary) hypertension
[2019-07-20] MEDS ORDERED: PT OWN MED DRAWER 7, Y5N ONE (18:54)
[2019-07-21] MEDS ORDERED: DEXTROSE 5%-WATER - 50 ML IVPB ONE ×3 (01:01→17:01)
[2019-07-21] MEDS ORDERED: ceFAZolin SODIUM 1 GM VIAL ONE ×3 (01:01→17:00)
[2019-07-21] MEDS: CEFAZOLIN 1 GM in DEXTROSE 5%-WATER - 50 ML IVPB SCH ×3 (01:24→17:03)
[2019-07-21] MEDS: POTASSIUM CHLORIDE TABS 20 MEQ TABLET.ER (FP) PO SCH ×2 (09:27→21:24)
[2019-07-21] MEDS: hydrALAZINE HCL 25 MG TABLET (FP) PO SCH ×2 (09:27→21:24)
[2019-07-21] MEDS: amLODIPine BESYLATE 10 MG TABLET (FP) PO SCH (09:27)
[2019-07-21] MEDS: FUROSEMIDE 20 MG TABLET (FP) PO SCH (09:27)
[2019-07-21] MEDS: PANTOPRAZOLE 40 MG TABLET (FP) PO SCH (09:27)
[2019-07-21] MEDS: ACETAMINOPHEN 325 MG TABLET (FP) PO PRN ×3 (09:27→23:04)
[2019-07-21] MEDS: LOSARTAN POTASSIUM 50 MG TABLET (FP) PO SCH (09:28)
[2019-07-21] MEDS: HEPARIN NA (PORCINE) 5,000 UNITS/ML 1ML VIAL SQ SCH ×2 (09:28→21:23)
--- NOTE | 2019-07-21 11:40 | PN ---
Progress Note, Physician History of Present Illness: still very tender localization of the swelling worry if abscess is forming - Current Medication List Current Medications: Active Medications Acetaminophen (Tylenol -) 650 mg PO Q6H PRN PRN Reason: PAIN LEVEL 6-10 Last Admin: 07/21/19 09:27 Dose: 650 mg Amlodipine Besylate (Norvasc -) 10 mg PO DAILY [facility] Last Admin: 07/21/19 09:27 Dose: 10 mg Furosemide (Lasix -) 20 mg PO DAILY [facility] Last Admin: 07/21/19 09:27 Dose: 20 mg Heparin Sodium (Porcine) (Heparin -) 5,000 unit SQ BID [facility] Last Admin: 07/21/19 09:28 Dose: 5,000 unit Hydralazine HCl (Apresoline -) 25 mg PO BID [facility] Last Admin: 07/21/19 09:27 Dose: 25 mg Cefazolin Sodium 1 gm/ (Dextrose) 50 mls @ 100 mls/hr IVPB Q8H-IV [facility] Last Admin: 07/21/19 09: Dose: 100 mls/hr Losartan Potassium (Cozaar -) 100 mg PO DAILY [facility] Last Admin: 07/21/19 09:28 Dose: 100 mg Pantoprazole Sodium (Protonix -) 40 mg PO DAILY [facility] Last Admin: 07/21/19 09:27 Dose: 40 mg Potassium Chloride (K-Dur -) 40 meq PO BID [facility] Last Admin: 07/21/19 09: Dose: 40 meq - Objective Vital Signs: Vital Signs Temperature 98.1 F 07/21/19 06:00 Pulse Rate 72 07/21/19 06:00 Respiratory Rate 18 07/21/19 06:00 Blood Pressure 159/90 07/21/19 06:00 O2 Sat by Pulse Oximetry (%) 98 07/20/19 21:00 Constitutional: Yes: Calm, Moderate Distress Cardiovascular: Yes: Regular Rate and Rhythm Respiratory: Yes: Regular, CTA Bilaterally Gastrointestinal: Yes: Normal Bowel Sounds, Soft Musculoskeletal: Yes: WNL Extremities: Yes: Erythema (and swelling of the lower leg with localized focus) , Other Integumentary: Yes: Erythema Neurological: Yes: Alert, Oriented Psychiatric: Yes: Alert, Oriented Labs: CBC, BMP 07/20/19 06:00 07/20/19 06:00 Assessment/Plan Problem List - Problems (1) Cellulitis Code(s): L03.90 - CELLULITIS, UNSPECIFIED Qualifiers: Site of cellulitis: extremity Site of cellulitis of extremity: lower extremity Laterality: left Qualified Code(s): L03.116 - Cellulitis of left lower limb (2) Asthma Code(s): J45.909 - UNSPECIFIED ASTHMA, UNCOMPLICATED Qualifiers: (3) GERD (gastroesophageal reflux disease) Code(s): K21.9 - GASTRO-ESOPHAGEAL REFLUX DISEASE WITHOUT ESOPHAGITIS Qualifiers: (4) Hypertension Code(s): I10 - ESSENTIAL (PRIMARY) HYPERTENSION 5 r/o abscess plan abx consider surgical evaluation--patient might be developing an abscess elevation of the leg rest as per the team
--- NOTE | 2019-07-21 12:21 | PN ---
Progress Note, Physician - Current Medication List Current Medications: Active Medications Acetaminophen (Tylenol -) 650 mg PO Q6H PRN PRN Reason: PAIN LEVEL 6-10 Last Admin: 07/21/19 09:27 Dose: 650 mg Amlodipine Besylate (Norvasc -) 10 mg PO DAILY [facility] Last Admin: 07/21/19 09:27 Dose: 10 mg Furosemide (Lasix -) 20 mg PO DAILY [facility] Last Admin: 07/21/19 09:27 Dose: 20 mg Heparin Sodium (Porcine) (Heparin -) 5,000 unit SQ BID [facility] Last Admin: 07/21/19 09:28 Dose: 5,000 unit Hydralazine HCl (Apresoline -) 25 mg PO BID [facility] Last Admin: 07/21/19 09:27 Dose: 25 mg Cefazolin Sodium 1 gm/ (Dextrose) 50 mls @ 100 mls/hr IVPB Q8H-IV [facility] Last Admin: 07/21/19 09:27 Dose: 100 mls/hr Losartan Potassium (Cozaar -) 100 mg PO DAILY [facility] Last Admin: 07/21/19 09:28 Dose: 100 mg Pantoprazole Sodium (Protonix -) 40 mg PO DAILY [facility] Last Admin: 07/21/19 09:27 Dose: 40 mg Potassium Chloride (K-Dur -) 40 meq PO BID [facility] Last Admin: 07/21/19 09:27 Dose: 40 meq - Objective Vital Signs: Vital Signs Temperature 98.1 F 07/21/19 06:00 Pulse Rate 72 07/21/19 06:00 Respiratory Rate 18 07/21/19 06:00 Blood Pressure 159/90 07/21/19 06:00 O2 Sat by Pulse Oximetry (%) 98 07/20/19 21:00 Constitutional: Yes: No Distress HENT: Yes: Atraumatic Neck: Yes: Supple Cardiovascular: Yes: Regular Rate and Rhythm Respiratory: Yes: CTA Bilaterally Extremities: Yes: Other (llex cellulitis tender) Neurological: Yes: Alert, Oriented Labs: CBC, BMP 07/20/19 06:00 07/20/19 06:00 Problem List - Problems (1) Cellulitis Assessment/Plan: iv abx id consult surgery consult Code(s): L03.90 - CELLULITIS, UNSPECIFIED Qualifiers: Site of cellulitis: extremity Site of cellulitis of extremity: lower extremity Laterality: left Qualified Code(s): L03.116 - Cellulitis of left lower limb (2) Asthma Assessment/Plan: stable Code(s): J45.909 - UNSPECIFIED ASTHMA, UNCOMPLICATED Qualifiers: Asthma severity: mild Asthma persistence: intermittent Asthma complication type: uncomplicated Qualified Code(s): J45.20 - Mild intermittent asthma, uncomplicated (3) GERD (gastroesophageal reflux disease) Assessment/Plan: on protonix Code(s): K21.9 - GASTRO-ESOPHAGEAL REFLUX DISEASE WITHOUT ESOPHAGITIS Qualifiers: Esophagitis presence: without esophagitis Qualified Code(s): K21.9 - Gastro -esophageal reflux disease without esophagitis (4) Hypertension Assessment/Plan: on meds monitor Code(s): I10 - ESSENTIAL (PRIMARY) HYPERTENSION Qualifiers: Hypertension type: essential hypertension Qualified Code(s): I10 - Essential (primary) hypertension
[2019-07-21] MEDS ORDERED: ACETAMINOPHEN 325 MG TABLET (FP) PO PRN (22:41)
[2019-07-22] MEDS ORDERED: ceFAZolin SODIUM 1 GM VIAL ONE ×3 (00:49→17:01)
[2019-07-22] MEDS ORDERED: DEXTROSE 5%-WATER - 50 ML IVPB ONE ×3 (00:49→17:02)
[2019-07-22] MEDS: CEFAZOLIN 1 GM in DEXTROSE 5%-WATER - 50 ML IVPB SCH ×3 (01:05→17:03)
[2019-07-22] MEDS: ACETAMINOPHEN 325 MG TABLET (FP) PO PRN ×3 (07:58→22:27)
[2019-07-22] MEDS: PANTOPRAZOLE 40 MG TABLET (FP) PO SCH (09:55)
[2019-07-22] MEDS: LOSARTAN POTASSIUM 50 MG TABLET (FP) PO SCH (09:55)
[2019-07-22] MEDS: POTASSIUM CHLORIDE TABS 20 MEQ TABLET.ER (FP) PO SCH (09:55)
[2019-07-22] MEDS: amLODIPine BESYLATE 10 MG TABLET (FP) PO SCH (09:55)
[2019-07-22] MEDS: hydrALAZINE HCL 25 MG TABLET (FP) PO SCH ×2 (09:55→22:20)
[2019-07-22] MEDS: FUROSEMIDE 20 MG TABLET (FP) PO SCH (09:55)
[2019-07-22] MEDS: HEPARIN NA (PORCINE) 5,000 UNITS/ML 1ML VIAL SQ SCH ×2 (09:56→22:20)
--- NOTE | 2019-07-22 10:44 | PN ---
Progress Note, Physician History of Present Illness: still with lot of pain no new issues - Current Medication List Current Medications: Active Medications Acetaminophen (Tylenol -) 650 mg PO Q5H PRN PRN Reason: PAIN LEVEL 6-10 Last Admin: 07/22/19 07:58 Dose: 650 mg Amlodipine Besylate (Norvasc -) 10 mg PO DAILY [facility] Last Admin: 07/22/19 09:55 Dose: 10 mg Furosemide (Lasix -) 20 mg PO DAILY [facility] Last Admin: 07/22/19 09:55 Dose: 20 mg Heparin Sodium (Porcine) (Heparin -) 5,000 unit SQ BID [facility] Last Admin: 07/22/19 09:56 Dose: 5,000 unit Hydralazine HCl (Apresoline -) 25 mg PO BID [facility] Last Admin: 07/22/19 09:55 Dose: 25 mg Cefazolin Sodium 1 gm/ (Dextrose) 50 mls @ 100 mls/hr IVPB Q8H-IV [facility] Last Admin: 07/22/19 09:55 Dose: 100 mls/hr Losartan Potassium (Cozaar -) 100 mg PO DAILY [facility] Last Admin: 07/22/19 09:55 Dose: 100 mg Pantoprazole Sodium (Protonix -) 40 mg PO DAILY [facility] Last Admin: 07/22/19 09:55 Dose: 40 mg Potassium Chloride (K-Dur -) 40 meq PO BID [facility] Last Admin: 07/22/19 09:55 Dose: 40 meq - Objective Vital Signs: Vital Signs Temperature 98.2 F 07/22/19 06:00 Pulse Rate 88 07/22/19 06:00 Respiratory Rate 18 07/22/19 06:00 Blood Pressure 135/85 07/22/19 06:00 O2 Sat by Pulse Oximetry (%) 98 07/21/19 21:00 Constitutional: Yes: Calm, Mild Distress Cardiovascular: Yes: Regular Rate and Rhythm Respiratory: Yes: Regular, CTA Bilaterally Gastrointestinal: Yes: Normal Bowel Sounds, Soft Musculoskeletal: Yes: Other Extremities: Yes: Erythema, Other Integumentary: Yes: Other Neurological: Yes: Alert, Oriented Psychiatric: Yes: Alert, Oriented Labs: CBC, BMP 07/20/19 06:00 07/20/19 06:00 Assessment/Plan Problem List - Problems (1) Cellulitis Code(s): L03.90 - CELLULITIS, UNSPECIFIED Qualifiers: Site of cellulitis: extremity Site of cellulitis of extremity: lower extremity Laterality: left Qualified Code(s): L03.116 - Cellulitis of left lower limb (2) Asthma Code(s): J45.909 - UNSPECIFIED ASTHMA, UNCOMPLICATED Qualifiers: (3) GERD (gastroesophageal reflux disease) Code(s): K21.9 - GASTRO-ESOPHAGEAL REFLUX DISEASE WITHOUT ESOPHAGITIS Qualifiers: (4) Hypertension Code(s): I10 - ESSENTIAL (PRIMARY) HYPERTENSION 5 r/o abscess plan abx elevation of the leg awaiting for final plan rest as per the team
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
[2019-07-22] MEDS ORDERED: POTASSIUM CHLORIDE ORAL LIQUID 20 MEQ/15 ML PO ONE (16:44)
[2019-07-22 19:52] LABS: BLOOD UREA NITROGEN 19.5 mg/dL (7-18); CALCIUM 8.9 mg/dL (8.5-10.1); CREATININE 1.3 mg/dL (0.55-1.3); INR 1.13 (0.83-1.09); POTASSIUM 4.6 mmol/L (3.5-5.1); PROTHROMBIN TIME (PATIENT) 13.4 SEC (9.7-13.0)
--- NOTE | 2019-07-22 20:38 | PN ---
Progress Note, Physician - Current Medication List Current Medications: Active Medications Acetaminophen (Tylenol -) 650 mg PO Q5H PRN PRN Reason: PAIN LEVEL 6-10 Last Admin: 07/22/19 15:20 Dose: 650 mg Amlodipine Besylate (Norvasc -) 10 mg PO DAILY [facility] Last Admin: 07/22/19 09:55 Dose: 10 mg Furosemide (Lasix -) 20 mg PO DAILY [facility] Last Admin: 07/22/19 09:55 Dose: 20 mg Heparin Sodium (Porcine) (Heparin -) 5,000 unit SQ TID [facility] Hydralazine HCl (Apresoline -) 25 mg PO BID [facility] Last Admin: 07/22/19 09:55 Dose: 25 mg Cefazolin Sodium 1 gm/ (Dextrose) 50 mls @ 100 mls/hr IVPB Q8H-IV [facility] Last Admin: 07/22/19 17:03 Dose: 100 mls/hr Potassium Chloride/Dextrose/Sod Cl (D5-1/2ns+20 Meq Kcl -) 20 meq in 1,000 mls @ 75 mls/hr IV ASDIR [facility] Losartan Potassium (Cozaar -) 100 mg PO DAILY [facility] Last Admin: 07/22/19 09:55 Dose: 100 mg Pantoprazole Sodium (Protonix -) 40 mg PO DAILY [facility] Last Admin: 07/22/19 09:55 Dose: 40 mg Potassium Chloride (Potassium Chloride Oral Liquid) 40 meq PO BID [facility] - Objective Vital Signs: Vital Signs Temperature 98.2 F 07/22/19 18:00 Pulse Rate 89 07/22/19 18:00 Respiratory Rate 20 07/22/19 18:00 Blood Pressure 147/86 07/22/19 18:00 O2 Sat by Pulse Oximetry (%) 96 07/22/19 09:00 Constitutional: Yes: No Distress HENT: Yes: Atraumatic Neck: Yes: Supple Cardiovascular: Yes: Regular Rate and Rhythm Respiratory: Yes: CTA Bilaterally Gastrointestinal: Yes: Normal Bowel Sounds Extremities: Yes: Other (llex cellulitis) Neurological: Yes: Alert, Oriented Labs: CBC, BMP 07/20/19 06:00 07/22/19 18:30 INR, PTT INR 1.13 (0.83-1.09) H 07/22/19 18:30 Problem List - Problems (1) Cellulitis Assessment/Plan: iv abx id consult for OR in am Code(s): L03.90 - CELLULITIS, UNSPECIFIED Qualifiers: Site of cellulitis: extremity Site of cellulitis of extremity: lower extremity Laterality: left Qualified Code(s): L03.116 - Cellulitis of left lower limb (2) Asthma Code(s): J45.909 - UNSPECIFIED ASTHMA, UNCOMPLICATED Qualifiers: Asthma severity: mild Asthma persistence: intermittent Asthma complication type: uncomplicated Qualified Code(s): J45.20 - Mild intermittent asthma, uncomplicated (3) GERD (gastroesophageal reflux disease) Code(s): K21.9 - GASTRO-ESOPHAGEAL REFLUX DISEASE WITHOUT ESOPHAGITIS Qualifiers: Esophagitis presence: without esophagitis Qualified Code(s): K21.9 - Gastro -esophageal reflux disease without esophagitis (4) Hypertension Code(s): I10 - ESSENTIAL (PRIMARY) HYPERTENSION Qualifiers: Hypertension type: essential hypertension Qualified Code(s): I10 - Essential (primary) hypertension
[2019-07-22] MEDS ORDERED: POTASSIUM CHLORIDE ORAL LIQUID 20 MEQ/15 ML PO SCH (22:00)
[2019-07-23] MEDS ORDERED: D5-1/2NS+20 MEQ KCL - 20 MEQ/1,000 ML INFUS.BAG IV SCH (00:01)
[2019-07-23] MEDS ORDERED: LACTATED RINGERS SOLUTION 1,000 ML/1,000 ML INFUS.BAG IV SCH ×2 (00:01→12:53)
[2019-07-23] MEDS ORDERED: ALBUTEROL SO4 0.083% IH SOL 2.5 MG/3 ML VIAL.NEB. NEB PRN (00:14)
[2019-07-23] MEDS ORDERED: MAG HYDROX/AL HYDROX/SIMETH 30 ML UNIT-DOSE CUP PO ONE (00:15)
[2019-07-23] MEDS ORDERED: ceFAZolin SODIUM 1 GM VIAL ONE ×3 (00:57→10:05)
[2019-07-23] MEDS ORDERED: DEXTROSE 5%-WATER - 50 ML IVPB ONE ×2 (00:57→08:46)
[2019-07-23] MEDS: CEFAZOLIN 1 GM in DEXTROSE 5%-WATER - 50 ML IVPB SCH ×3 (02:03→17:48)
[2019-07-23] MEDS: HEPARIN NA (PORCINE) 5,000 UNITS/ML 1ML VIAL SQ SCH ×3 (07:44→22:05)
[2019-07-23 08:10] LABS: BASO % 0.6 % (0-2.0); HEMATOCRIT 33.9 % (32.4-45.2); HEMOGLOBIN 11.5 GM/dL (10.7-15.3); LYMPH % 21.3 % (8-40); MCHC 33.8 g/dl (32.0-36.0); MEAN PLT VOLUME 8.4 fl (7.5-11.1); MONO % 6.6 % (3.8-10.2); NEUT % 69.5 % (42.8-82.8); PLATELET COUNT 341 K/MM3 (134-434); RBC 4.08 M/mm3 (3.60-5.2); RDW 14.1 % (11.6-15.6); WHITE BLOOD COUNT 7.4 K/mm3 (4.0-10.0)
[2019-07-23 08:23] LABS: ALBUMIN 3.2 g/dl (3.4-5.0); BILIRUBIN,TOTAL 0.5 mg/dL (0.2-1); BLOOD UREA NITROGEN 20.1 mg/dL (7-18); CALCIUM 9.2 mg/dL (8.5-10.1); CREATININE 1.1 mg/dL (0.55-1.3); POTASSIUM 3.8 mmol/L (3.5-5.1); TOT PROT 7.6 g/dl (6.4-8.2)
[2019-07-23] MEDS: hydrALAZINE HCL 25 MG TABLET (FP) PO SCH ×2 (08:50→22:05)
[2019-07-23] MEDS: PANTOPRAZOLE 40 MG TABLET (FP) PO SCH ×2 (08:52→09:55)
[2019-07-23] MEDS: LOSARTAN POTASSIUM 50 MG TABLET (FP) PO SCH ×2 (08:52→09:54)
[2019-07-23] MEDS: amLODIPine BESYLATE 10 MG TABLET (FP) PO SCH ×2 (08:52→09:55)
[2019-07-23] MEDS ORDERED: PROPOFOL 20 ML ONE ×2 (09:25)
[2019-07-23] MEDS ORDERED: MIDAZOLAM HCL 2 MG/2 ML SINGLE DOSE VIAL ONE (09:25)
[2019-07-23] MEDS ORDERED: ALBUTEROL SO4 8 GM HFA INHALER IH ONE (09:54)
[2019-07-23] MEDS ORDERED: SUCCINYLCHOLINE CHLORIDE 200 MG/10 ML SYRINGE ONE (09:58)
[2019-07-23] MEDS ORDERED: LIDOCAINE HCL/PF 2% SDV 5ML VIAL ONE (09:58)
[2019-07-23] MEDS ORDERED: ceFAZolin SODIUM 1 GM VIAL IVPB ONE ×2 (09:59)
[2019-07-23] MEDS ORDERED: DEXAMETHASONE SOD PHOSPHATE 4 MG/1 ML VIAL ONE (10:07)
[2019-07-23] MEDS ORDERED: ONDANSETRON 4 MG/2 ML VIAL IVPUSH PRN ×2 (10:51→12:53)
--- NOTE | 2019-07-23 10:59 | OP ---
Operative Note - Note: Operative Date: 07/23/19 Pre-Operative Diagnosis: left lower leg abscess Operation: incision and drainage/evacuation of left lower leg hematoma Findings: old bloody drainage, no purulence, cx swab sent; packed with 1/2" plain ribbon wound measures approx 3 x 1 x 2.5 cm deep Post-Operative Diagnosis: Other (left lower leg hematoma) Surgeon: Trent Bolivar Anesthesiologist/VIDEO PRODUCTION ENGINEER: Khalida Allison Anesthesia: General Specimens Removed: culture swab to micro Estimated Blood Loss (mls): 10 Fluid Volume Replaced (mls): 600 (crystalloid) Operative Report Dictated: Yes
[2019-07-23] MEDS ORDERED: LACTATED RINGERS SOLUTION 1,000 ML IV SCH (11:00)
[2019-07-23] MEDS ORDERED: traMADol HCL 50 MG TABLET PO PRN (11:02)
[2019-07-23] MEDS ORDERED: ACETAMINOPHEN 1000 MG/100 ML VIAL (NON FORMULARY) IVPB ONE ×3 (11:30→12:53)
--- NOTE | 2019-07-23 12:03 | PN ---
Progress Note, Physician History of Present Illness: stable post op - Current Medication List Current Medications: Active Medications Acetaminophen (Ofirmev Injection -) 1,000 mg IVPB ONCE ONE Stop: 07/23/19 11:02 Acetaminophen (Tylenol -) 650 mg PO Q4H [facility] Albuterol Sulfate (Ventolin 0.083% Nebulizer Soln -) 1 amp NEB Q4H PRN PRN Reason: SHORT OF BREATH/WHEEZING Amlodipine Besylate (Norvasc -) 10 mg PO DAILY [facility] Last Admin: 07/23/19 09:55 Dose: Not Given Fentanyl (Sublimaze Injection -) 50 mcg IVPUSH [id number] PRN PRN Reason: PAIN-PACU ORDER X 4 DOSES ONLY Furosemide (Lasix -) 20 mg PO DAILY [facility] Last Admin: 07/22/19 09:55 Dose: 20 mg Heparin Sodium (Porcine) (Heparin -) 5,000 unit SQ TID [facility] Last Admin: 07/23/19 07:44 Dose: 5,000 unit Hydralazine HCl (Apresoline -) 25 mg PO BID [facility] Last Admin: 07/23/19 08:50 Dose: 25 mg Cefazolin Sodium 1 gm/ (Dextrose) 50 mls @ 100 mls/hr IVPB Q8H-IV [facility] Last Admin: 07/23/19 09:53 Dose: Not Given Lactated Ringer's (Lactated Ringers Solution) 1,000 ml in 1,000 mls @ 83 mls/ hr IV ASDIR [facility] Last Admin: 07/22/19 23:57 Dose: 83 mls/hr Lactated Ringer's (Lactated Ringers Solution) 1,000 mls @ 125 mls/hr IV ASDIR [facility] Losartan Potassium (Cozaar -) 100 mg PO DAILY [facility] Last Admin: 07/23/19 09:54 Dose: Not Given Ondansetron HCl (Zofran Injection) 4 mg IVPUSH Q6H PRN PRN Reason: NAUSEA AND/OR VOMITING Pantoprazole Sodium (Protonix -) 40 mg PO DAILY [facility] Last Admin: 07/23/19 09:55 Dose: Not Given Tramadol HCl (Ultram -) 50 mg PO Q8H PRN PRN Reason: PAIN LEVEL 6-10 - Objective Vital Signs: Vital Signs Temperature 98.0 F 07/23/19 10:49 Pulse Rate 78 07/23/19 11:30 Respiratory Rate 16 07/23/19 11:30 Blood Pressure 162/95 07/23/19 11:30 O2 Sat by Pulse Oximetry (%) 95 07/23/19 11:30 Constitutional: Yes: Calm Cardiovascular: Yes: Regular Rate and Rhythm Respiratory: Yes: Regular, CTA Bilaterally Gastrointestinal: Yes: Normal Bowel Sounds, Soft Musculoskeletal: Yes: WNL Extremities: Yes: Other Wound/Incision: Yes: Dressing Dry and Intact Neurological: Yes: Alert, Oriented Psychiatric: Yes: Alert, Oriented Labs: CBC, BMP 07/23/19 07:35 07/23/19 07:35 INR, PTT INR 1.13 (0.83-1.09) H 07/22/19 18:30 Assessment/Plan Problem List - Problems (1) Cellulitis Code(s): L03.90 - CELLULITIS, UNSPECIFIED Qualifiers: Site of cellulitis: extremity Site of cellulitis of extremity: lower extremity Laterality: left Qualified Code(s): L03.116 - Cellulitis of left lower limb (2) Asthma Code(s): J45.909 - UNSPECIFIED ASTHMA, UNCOMPLICATED Qualifiers: (3) GERD (gastroesophageal reflux disease) Code(s): K21.9 - GASTRO-ESOPHAGEAL REFLUX DISEASE WITHOUT ESOPHAGITIS Qualifiers: (4) Hypertension Code(s): I10 - ESSENTIAL (PRIMARY) HYPERTENSION 5 r/o abscess plan abx await for reports will d/w surgery rest as per the team
[2019-07-23] MEDS ORDERED: ACETAMINOPHEN 325 MG TABLET (FP) PO SCH (16:00)
--- NOTE | 2019-07-23 17:00 | PN ---
Progress Note, Physician - Current Medication List Current Medications: Active Medications Acetaminophen (Tylenol -) 650 mg PO Q4H [facility] Albuterol Sulfate (Ventolin 0.083% Nebulizer Soln -) 1 amp NEB Q4H PRN PRN Reason: SHORT OF BREATH/WHEEZING Amlodipine Besylate (Norvasc -) 10 mg PO DAILY [facility] Furosemide (Lasix -) 20 mg PO DAILY [facility] Heparin Sodium (Porcine) (Heparin -) 5,000 unit SQ TID [facility] Last Admin: 07/23/19 14:59 Dose: 5,000 unit Hydralazine HCl (Apresoline -) 25 mg PO BID [facility] Cefazolin Sodium 1 gm/ (Dextrose) 50 mls @ 100 mls/hr IVPB Q8H-IV [facility] Lactated Ringer's (Lactated Ringers Solution) 1,000 ml in 1,000 mls @ 83 mls/ hr IV ASDIR [facility] Last Admin: 07/23/19 13:00 Dose: 83 mls/hr Losartan Potassium (Cozaar -) 100 mg PO DAILY [facility] Ondansetron HCl (Zofran Injection) 4 mg IVPUSH Q6H PRN PRN Reason: NAUSEA AND/OR VOMITING Pantoprazole Sodium (Protonix -) 40 mg PO DAILY [facility] Tramadol HCl (Ultram -) 50 mg PO Q8H PRN PRN Reason: PAIN LEVEL 6-10 - Objective Vital Signs: Vital Signs Temperature 98.2 F 07/23/19 14:31 Pulse Rate 68 07/23/19 13:05 Respiratory Rate 18 07/23/19 13:05 Blood Pressure 135/80 07/23/19 13:05 O2 Sat by Pulse Oximetry (%) 96 07/23/19 13:05 Constitutional: Yes: No Distress HENT: Yes: Atraumatic Neck: Yes: Supple Cardiovascular: Yes: Regular Rate and Rhythm Respiratory: Yes: CTA Bilaterally Gastrointestinal: Yes: Normal Bowel Sounds Extremities: Yes: Other (llex celluilitis/swelling) Neurological: Yes: Alert, Oriented Labs: CBC, BMP 07/23/19 07:35 07/23/19 07:35 INR, PTT INR 1.13 (0.83-1.09) H 07/22/19 18:30 Problem List - Problems (1) Cellulitis Assessment/Plan: iv abx id consult for OR in am Code(s): L03.90 - CELLULITIS, UNSPECIFIED Qualifiers: Site of cellulitis: extremity Site of cellulitis of extremity: lower extremity Laterality: left Qualified Code(s): L03.116 - Cellulitis of left lower limb (2) Asthma Assessment/Plan: stable Code(s): J45.909 - UNSPECIFIED ASTHMA, UNCOMPLICATED Qualifiers: Asthma severity: mild Asthma persistence: intermittent Asthma complication type: uncomplicated Qualified Code(s): J45.20 - Mild intermittent asthma, uncomplicated (3) GERD (gastroesophageal reflux disease) Assessment/Plan: on protonix Code(s): K21.9 - GASTRO-ESOPHAGEAL REFLUX DISEASE WITHOUT ESOPHAGITIS Qualifiers: Esophagitis presence: without esophagitis Qualified Code(s): K21.9 - Gastro -esophageal reflux disease without esophagitis (4) Hypertension Assessment/Plan: on meds monitor Code(s): I10 - ESSENTIAL (PRIMARY) HYPERTENSION Qualifiers: Hypertension type: essential hypertension Qualified Code(s): I10 - Essential (primary) hypertension
[2019-07-23] MEDS: ACETAMINOPHEN 325 MG TABLET (FP) PO SCH ×2 (17:47→20:26)
[2019-07-23] MEDS: ALBUTEROL SO4 0.083% IH SOL 2.5 MG/3 ML VIAL.NEB. NEB PRN (19:40)
[2019-07-23] MEDS: traMADol HCL 50 MG TABLET PO PRN (20:23)
[2019-07-24] MEDS: ACETAMINOPHEN 325 MG TABLET (FP) PO SCH ×6 (00:49→21:13)
[2019-07-24] MEDS ORDERED: ceFAZolin SODIUM 1 GM VIAL ONE ×2 (00:58→09:00)
[2019-07-24] MEDS ORDERED: DEXTROSE 5%-WATER - 50 ML IVPB ONE ×2 (00:58→09:00)
[2019-07-24] MEDS: CEFAZOLIN 1 GM in DEXTROSE 5%-WATER - 50 ML IVPB SCH ×2 (01:38→09:08)
[2019-07-24] MEDS: ALBUTEROL SO4 0.083% IH SOL 2.5 MG/3 ML VIAL.NEB. NEB PRN ×3 (02:33→21:37)
[2019-07-24] MEDS: HEPARIN NA (PORCINE) 5,000 UNITS/ML 1ML VIAL SQ SCH ×3 (07:03→21:13)
[2019-07-24 08:00] LABS: BLOOD UREA NITROGEN 19.7 mg/dL (7-18); POTASSIUM 4.3 mmol/L (3.5-5.1)
[2019-07-24] MEDS: traMADol HCL 50 MG TABLET PO PRN ×2 (08:34→21:08)
[2019-07-24] MEDS: amLODIPine BESYLATE 10 MG TABLET (FP) PO SCH (09:09)
[2019-07-24] MEDS: LOSARTAN POTASSIUM 50 MG TABLET (FP) PO SCH (09:09)
[2019-07-24] MEDS: hydrALAZINE HCL 25 MG TABLET (FP) PO SCH ×2 (09:09→21:13)
[2019-07-24] MEDS: FUROSEMIDE 20 MG TABLET (FP) PO SCH (09:09)
[2019-07-24] MEDS: PANTOPRAZOLE 40 MG TABLET (FP) PO SCH (09:09)
--- NOTE | 2019-07-24 10:59 | PN ---
Progress Note, Physician History of Present Illness: stable feels much better post op cx results noted - Current Medication List Current Medications: Active Medications Acetaminophen (Tylenol -) 650 mg PO Q4H [facility] Last Admin: 07/24/19 08:36 Dose: Not Given Albuterol Sulfate (Ventolin 0.083% Nebulizer Soln -) 1 amp NEB Q4H PRN PRN Reason: SHORT OF BREATH/WHEEZING Last Admin: 07/24/19 02:33 Dose: 1 amp Amlodipine Besylate (Norvasc -) 10 mg PO DAILY [facility] Last Admin: 07/24/19 09:09 Dose: 10 mg Furosemide (Lasix -) 20 mg PO DAILY [facility] Last Admin: 07/24/19 09:09 Dose: 20 mg Heparin Sodium (Porcine) (Heparin -) 5,000 unit SQ TID [facility] Last Admin: 07/24/19 07:03 Dose: 5,000 unit Hydralazine HCl (Apresoline -) 25 mg PO BID [facility] Last Admin: 07/24/19 09:09 Dose: 25 mg Losartan Potassium (Cozaar -) 100 mg PO DAILY [facility] Last Admin: 07/24/19 09:09 Dose: 100 mg Ondansetron HCl (Zofran Injection) 4 mg IVPUSH Q6H PRN PRN Reason: NAUSEA AND/OR VOMITING Pantoprazole Sodium (Protonix -) 40 mg PO DAILY [facility] Last Admin: 07/24/19 09:09 Dose: 40 mg Tramadol HCl (Ultram -) 50 mg PO Q8H PRN PRN Reason: PAIN LEVEL 6-10 Last Admin: 07/24/19 08:34 Dose: 50 mg - Objective Vital Signs: Vital Signs Temperature 97.7 F 07/24/19 09:12 Pulse Rate 87 07/24/19 09:12 Respiratory Rate 20 07/24/19 09:12 Blood Pressure 160/91 07/24/19 09:12 O2 Sat by Pulse Oximetry (%) 96 07/23/19 21:00 Constitutional: Yes: No Distress, Calm Cardiovascular: Yes: S1, S2 Respiratory: Yes: Regular, CTA Bilaterally Gastrointestinal: Yes: Normal Bowel Sounds, Soft Musculoskeletal: Yes: WNL Extremities: Yes: Other Wound/Incision: Yes: Dressing Dry and Intact Neurological: Yes: Alert, Oriented Psychiatric: Yes: Alert, Oriented Labs: CBC, BMP 07/23/19 07:35 07/24/19 06:48 INR, PTT INR 1.13 (0.83-1.09) H 07/22/19 18:30 Assessment/Plan Problem List - Problems (1) Cellulitis Code(s): L03.90 - CELLULITIS, UNSPECIFIED Qualifiers: Site of cellulitis: extremity Site of cellulitis of extremity: lower extremity Laterality: left Qualified Code(s): L03.116 - Cellulitis of left lower limb (2) Asthma Code(s): J45.909 - UNSPECIFIED ASTHMA, UNCOMPLICATED Qualifiers: (3) GERD (gastroesophageal reflux disease) Code(s): K21.9 - GASTRO-ESOPHAGEAL REFLUX DISEASE WITHOUT ESOPHAGITIS Qualifiers: (4) Hypertension Code(s): I10 - ESSENTIAL (PRIMARY) HYPERTENSION 5 r/o abscess plan will stop all abx wound care rest as per the team
--- NOTE | 2019-07-24 12:18 | PN ---
Progress Note (short form) - Note Progress Note: Anesthesiologist popst op note, POD#1, S/P incision and drainage/evacuation of left lower leg hematoma under GA. VSS. No apparent post anesthesia complications.
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
--- NOTE | 2019-07-24 21:45 | PN ---
Progress Note, Physician - Current Medication List Current Medications: Active Medications Acetaminophen (Tylenol -) 650 mg PO Q4H [facility] Last Admin: 07/24/19 21:13 Dose: 650 mg Albuterol Sulfate (Ventolin 0.083% Nebulizer Soln -) 1 amp NEB Q4H PRN PRN Reason: SHORT OF BREATH/WHEEZING Last Admin: 07/24/19 21:37 Dose: 1 amp Amlodipine Besylate (Norvasc -) 10 mg PO DAILY [facility] Last Admin: 07/24/19 09:09 Dose: 10 mg Furosemide (Lasix -) 20 mg PO DAILY [facility] Last Admin: 07/24/19 09:09 Dose: 20 mg Heparin Sodium (Porcine) (Heparin -) 5,000 unit SQ TID [facility] Last Admin: 07/24/19 21:13 Dose: 5,000 unit Hydralazine HCl (Apresoline -) 25 mg PO BID [facility] Last Admin: 07/24/19 21:13 Dose: 25 mg Losartan Potassium (Cozaar -) 100 mg PO DAILY [facility] Last Admin: 07/24/19 09:09 Dose: 100 mg Ondansetron HCl (Zofran Injection) 4 mg IVPUSH Q6H PRN PRN Reason: NAUSEA AND/OR VOMITING Pantoprazole Sodium (Protonix -) 40 mg PO DAILY [facility] Last Admin: 07/24/19 09:09 Dose: 40 mg Tramadol HCl (Ultram -) 50 mg PO Q8H PRN PRN Reason: PAIN LEVEL 6-10 Last Admin: 07/24/19 21:08 Dose: 50 mg - Objective Vital Signs: Vital Signs Temperature 98 F 07/24/19 18:00 Pulse Rate 76 07/24/19 18:00 Respiratory Rate 20 07/24/19 18:00 Blood Pressure 123/76 07/24/19 18:00 O2 Sat by Pulse Oximetry (%) 97 07/24/19 09:00 Labs: CBC, BMP 07/23/19 07:35 07/24/19 06:48 INR, PTT INR 1.13 (0.83-1.09) H 07/22/19 18:30
[2019-07-25] MEDS: ACETAMINOPHEN 325 MG TABLET (FP) PO SCH ×5 (01:20→16:27)
[2019-07-25] MEDS: HEPARIN NA (PORCINE) 5,000 UNITS/ML 1ML VIAL SQ SCH ×2 (05:11→13:08)
[2019-07-25] MEDS: ALBUTEROL SO4 0.083% IH SOL 2.5 MG/3 ML VIAL.NEB. NEB PRN (08:00)
[2019-07-25] MEDS: FUROSEMIDE 20 MG TABLET (FP) PO SCH (10:51)
[2019-07-25] MEDS: LOSARTAN POTASSIUM 50 MG TABLET (FP) PO SCH (10:51)
[2019-07-25] MEDS: PANTOPRAZOLE 40 MG TABLET (FP) PO SCH (10:51)
[2019-07-25] MEDS: hydrALAZINE HCL 25 MG TABLET (FP) PO SCH (10:51)
[2019-07-25] MEDS: amLODIPine BESYLATE 10 MG TABLET (FP) PO SCH (10:52)
--- NOTE | 2019-07-25 11:59 | PN ---
Progress Note, Physician History of Present Illness: stable feels much better post op cx results noted - Current Medication List Current Medications: Active Medications Acetaminophen (Tylenol -) 650 mg PO Q4H [facility] Last Admin: 07/25/19 08:59 Dose: 650 mg Albuterol Sulfate (Ventolin 0.083% Nebulizer Soln -) 1 amp NEB Q4H PRN PRN Reason: SHORT OF BREATH/WHEEZING Last Admin: 07/25/19 08:00 Dose: 1 amp Amlodipine Besylate (Norvasc -) 10 mg PO DAILY [facility] Last Admin: 07/25/19 10:52 Dose: 10 mg Furosemide (Lasix -) 20 mg PO DAILY [facility] Last Admin: 07/25/19 10:51 Dose: 20 mg Heparin Sodium (Porcine) (Heparin -) 5,000 unit SQ TID [facility] Last Admin: 07/25/19 05:11 Dose: 5,000 unit Hydralazine HCl (Apresoline -) 25 mg PO BID [facility] Last Admin: 07/25/19 10:51 Dose: 25 mg Losartan Potassium (Cozaar -) 100 mg PO DAILY [facility] Last Admin: 07/25/19 10:51 Dose: 100 mg Ondansetron HCl (Zofran Injection) 4 mg IVPUSH Q6H PRN PRN Reason: NAUSEA AND/OR VOMITING Pantoprazole Sodium (Protonix -) 40 mg PO DAILY [facility] Last Admin: 07/25/19 10:51 Dose: 40 mg Tramadol HCl (Ultram -) 50 mg PO Q8H PRN PRN Reason: PAIN LEVEL 6-10 Last Admin: 07/24/19 21:08 Dose: 50 mg - Objective Vital Signs: Vital Signs Temperature 98.0 F 07/25/19 06:00 Pulse Rate 68 07/25/19 06:00 Respiratory Rate 20 07/25/19 06:00 Blood Pressure 141/78 07/25/19 06:00 O2 Sat by Pulse Oximetry (%) 97 07/24/19 09:00 Constitutional: Yes: No Distress, Calm Cardiovascular: Yes: S1, S2 Respiratory: Yes: Regular, CTA Bilaterally Gastrointestinal: Yes: Normal Bowel Sounds, Soft Musculoskeletal: Yes: WNL Extremities: Yes: Other Wound/Incision: Yes: Dressing Dry and Intact Neurological: Yes: Alert, Oriented Labs: CBC, BMP 07/23/19 07:35 07/24/19 06:48 INR, PTT INR 1.13 (0.83-1.09) H 07/22/19 18:30 Assessment/Plan Problem List - Problems (1) Cellulitis Code(s): L03.90 - CELLULITIS, UNSPECIFIED Qualifiers: Site of cellulitis: extremity Site of cellulitis of extremity: lower extremity Laterality: left Qualified Code(s): L03.116 - Cellulitis of left lower limb (2) Asthma Code(s): J45.909 - UNSPECIFIED ASTHMA, UNCOMPLICATED Qualifiers: (3) GERD (gastroesophageal reflux disease) Code(s): K21.9 - GASTRO-ESOPHAGEAL REFLUX DISEASE WITHOUT ESOPHAGITIS Qualifiers: (4) Hypertension Code(s): I10 - ESSENTIAL (PRIMARY) HYPERTENSION 5 r/o abscess plan wound care rest as per the team
[2019-07-25 14:08] VITALS: BP 142/81; PULSE 74; TEMP 98.3
[2019-07-25] MEDS: traMADol HCL 50 MG TABLET PO PRN (16:28)
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
--- NOTE | 2019-07-29 03:42 | HP ---
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 Lives at home w/ daughter & mom. Smoking: Alcohol: Drugs: [place] Hx: . LMP ~1 year ago. Allergies codeine [Codeine] Allergy (Verified 07/19/19 19:50) HOME MEDICATIONS: Home Medications Medication Instructions Recorded Albuterol Sulfate [Proair Hfa] 8.5 gm IH BID #1 hfa.aer.ad 04/02/18 Amlodipine Besylate [Norvasc -] 10 mg PO DAILY #30 tablet 04/02/18 Furosemide [Lasix -] 20 mg PO DAILY #30 tab 04/02/18 Losartan Potassium 100 mg PO DAILY #30 tablet 04/02/18 Mometasone Furoate [Asmanex 110Mcg 1 puff IH DAILY #1 inhaler 04/02/18 -] Albuterol Sulfate Inhaler - 1 - 2 inh PO Q4H #1 inhaler 01/12/19 [Ventolin HFA Inhaler -] Dm/Acetaminophen/Doxylamine 10 ml PO TID #1 bottle 01/12/19 [Coricidin Hbp Cold-Multi Sympt] Hydralazine HCl 25 mg PO DAILY 01/12/19 Ibuprofen 600 mg PO TID 3 Days #18 tablet 07/05/19 Acetaminophen [Tylenol .Regular 650 mg PO Q4H tablet 07/25/19 Strength -] traMADol HCL [Ultram -] 50 mg PO BID PRN #12 tablet MDD 3 07/25/19 REVIEW OF SYSTEMS CONSTITUTIONAL: Absent: fever, chills, diaphoresis, generalized weakness, malaise, loss of appetite, weight change HEENT: Absent: rhinorrhea, nasal congestion, throat pain, throat swelling, difficulty swallowing, mouth swelling, ear pain, eye pain, visual changes CARDIOVASCULAR: Absent: chest pain, syncope, palpitations, irregular heart rate, lightheadedness , peripheral edema RESPIRATORY: Absent: cough, shortness of breath, dyspnea with exertion, orthopnea, wheezing, stridor, hemoptysis GASTROINTESTINAL: Absent: abdominal pain, abdominal distension, nausea, vomiting, diarrhea, constipation, melena, hematochezia GENITOURINARY: Absent: dysuria, frequency, urgency, hesitancy, hematuria, flank pain, genital pain MUSCULOSKELETAL: Absent: myalgia, arthralgia, joint swelling, back pain, neck pain SKIN: Absent: rash, itching, pallor HEMATOLOGIC/IMMUNOLOGIC: Absent: easy bleeding, easy bruising, lymphadenopathy, frequent infections ENDOCRINE: Absent: unexplained weight gain, unexplained weight loss, heat intolerance, cold intolerance NEUROLOGIC: Absent: headache, focal weakness or paresthesias, dizziness, unsteady gait, seizure, mental status changes, bladder or bowel incontinence PSYCHIATRIC: Absent: anxiety, depression, suicidal or homicidal ideation, hallucinations. PHYSICAL EXAMINATION GENERAL: Awake, alert, and fully oriented, in no acute distress. HEAD: Normal with no signs of trauma. EYES: Pupils equal, round and reactive to light, extraocular movements intact, sclera anicteric, conjunctiva clear. No lid lag. EARS, NOSE, THROAT: Ears normal, nares patent, oropharynx clear without exudates. Moist mucous membranes. NECK: Normal range of motion, supple without lymphadenopathy, JVD, or masses. LUNGS: Breath sounds equal, clear to auscultation bilaterally. No wheezes, and no crackles. No accessory muscle use. HEART: Regular rate and rhythm, normal S1 and S2 without murmur, rub or gallop. ABDOMEN: Soft, nontender, not distended, normoactive bowel sounds, no guarding, no rebound, no masses. No hepatomegaly or splenomegaly. MUSCULOSKELETAL: Normal range of motion at all joints. No bony deformities or tenderness. No CVA tenderness. UPPER EXTREMITIES: 2+ pulses, warm, well-perfused. No cyanosis. No clubbing. No peripheral edema. LOWER EXTREMITIES: 2+ pulses, warm, well-perfused. No calf tenderness. No peripheral edema. NEUROLOGICAL: Cranial nerves II-XII intact. Normal speech. Normal gait. PSYCHIATRIC: Cooperative. Good eye contact. Appropriate mood and affect. SKIN: Warm, dry, normal turgor, no rashes or lesions noted, normal capillary refill. ASSESSMENT/PLAN: ATTENDING PHYSICIAN STATEMENT I saw and evaluated the patient. I reviewed the resident's note and discussed the case with the resident. I agree with the resident's findings and plan as documented. SUBJECTIVE: OBJECTIVE: ASSESSMENT AND PLAN:
== END 2019-07-25 17:13 | disposition home health service (06) | DRG 603 ==
LOC: JER 14:09 → JERBED 16:45 → J5S 21:33
PROVIDERS: ADMIT Internal Medicine; ATTEND Internal Medicine
PROC: 0JCP0ZZ Extirpation of Matter from Left Lower Leg Subcutaneous Tissue and Fascia, Open Approach (ICD-10-PCS; 2019-07-23)
PROC: 0J9P0ZX Drainage of Left Lower Leg Subcutaneous Tissue and Fascia, Open Approach, Diagnostic (ICD-10-PCS; principal; 2019-07-23 09:30)
DX: L03.116 Cellulitis of left lower limb (principal); I10 Essential (primary) hypertension; E78.00 Pure hypercholesterolemia, unspecified; K21.9 Gastro-esophageal reflux disease without esophagitis; J45.20 Mild intermittent asthma, uncomplicated; L02.416 Cutaneous abscess of left lower limb; S80.12XA Contusion of left lower leg, initial encounter; E66.8 Other obesity; Z68.32 Body mass index [BMI] 32.0-32.9, adult; W50 Accidental hit, strike, kick, twist, bite or scratch by another person
CPT/HCPCS: 36415; 73590-TC-LT-FY; 80048; 80053; 83735; 84100; 85025; 85610; 86850; 86900; 86901; 87040; 87070; 87205; 93971-TC; 94640; 94760; 99283-25; J0131; J1644

== ENCOUNTER 2019-07-28 20:05 | Inpatient (IN) | payer BC ==
[2019-07-28] MEDS ORDERED: ACETAMINOPHEN 325 MG TABLET (FP) PO ONE (21:49)
[2019-07-28] MEDS ORDERED: VANCOMYCIN HCL 1,250 MG in DEXTROSE 5%-WATER - 250 ML IVPB ONE (21:50)
--- NOTE | 2019-07-28 22:02 | PDOC ---
History of Present Illness - General Chief Complaint: Wound Stated Complaint: LEFT LEG PAIN Time Seen by Provider: 07/28/19 20:22 History Source: Patient Exam Limitations: No Limitations - History of Present Illness Initial Comments: 07/28/19 21:54 This is a 49 year old female with PMH significant for HTN, HLD, asthma, and POD 5 after I&D for LLE abscess. She presented to the ER with complaints of erythema , swelling, and pain in the anterior aspect of her left house, at the site of the I&D. The pain began last night, was gradual in onset, 8/10 in intensity, sharp in quality, constant in nature, non radiating, and alleviated partially by Tylenol. She endorses chills and no other complaints in her review of systems. She has had no new medications in the past few days, has not been on antibiotics post d/c, has no history of DM, has had no trauma, and no sick contacts. She is concerned that these symptoms are related to her visiting nurse not following the surgeon's instructions for changing her dressing. 07/28/19 22:35 Past History - Travel Traveled outside of the country in the last 30 days: No Close contact w/someone who was outside of country & ill: No - Past Medical History Allergies/Adverse Reactions: Allergies Allergy/AdvReac Type Severity Reaction Status Date / Time codeine [Codeine] Allergy Verified 07/19/19 19:50 Home Medications: Ambulatory Orders Albuterol Sulfate [Proair Hfa] 8.5 gm IH BID #1 hfa.aer.ad 04/02/18 Amlodipine Besylate [Norvasc -] 10 mg PO DAILY #30 tablet 04/02/18 Furosemide [Lasix -] 20 mg PO DAILY #30 tab 04/02/18 Losartan Potassium 100 mg PO DAILY #30 tablet 04/02/18 Mometasone Furoate [Asmanex 110Mcg -] 1 puff IH DAILY #1 inhaler 04/02/18 Albuterol Sulfate Inhaler - [Ventolin HFA Inhaler -] 1 - 2 inh PO Q4H #1 inhaler 01/12/19 Dm/Acetaminophen/Doxylamine [Coricidin Hbp Cold-Multi Sympt] 10 ml PO TID #1 bottle 01/12/19 Hydralazine HCl 25 mg PO DAILY 01/12/19 Ibuprofen 600 mg PO TID 3 Days #18 tablet 07/05/19 Acetaminophen [Tylenol .Regular Strength -] 650 mg PO Q4H tablet 07/25/19 traMADol HCL [Ultram -] 50 mg PO BID PRN #12 tablet MDD 3 07/25/19 Anemia: No Asthma: Yes Cancer: No Cardiac Disorders: Yes (Heart Murmur) CVA: No COPD: No CHF: No Dementia: No Diabetes: No GI Disorders: Yes (GERD) Disorders: No HTN: Yes Hypercholesterolemia: Yes Liver Disease: No Seizures: No Thyroid Disease: No - Immunization History Td Vaccination: Yes Immunization Up to Date: Yes - Psycho Social/Smoking Cessation Hx Smoking Status: No Smoking History: Never smoked Years of Tobacco Use: 0 Have you smoked in the past 12 months: No Number of Cigarettes Smoked Daily: 0 Cigars Per Day: 0 Information on smoking cessation initiated: No Hx Alcohol Use: No Drug/Substance Use Hx: No Substance Use Type: None Hx Substance Use Treatment: No Review of Systems - Review of Systems Able to Perform ROS?: Yes Is the patient limited Occitan proficient: No Constitutional: Yes: Chills HEENTM: No: Symptoms Reported, See HPI, Eye Pain, Blurred Vision, Tearing, Recent change in vision, Double Vision, Cataracts, Ear Pain, Ocular Prothesis, Ear Discharge, Nose Pain, Nose Congestion, Tinnitus, Nose Bleeding, Hearing Loss , Throat Pain, Throat Swelling, Mouth Pain, Dental Problems, Difficulty Swallowing, Mouth Swelling, Other Respiratory: No: Symptoms reported, See HPI, Cough, Orthopnea, Shortness of Breath, SOB with Exertion, SOB at Rest, Stridor, Wheezing, Productive cough, Hemoptysis, Other Cardiac (ROS): No: Symptoms Reported, See HPI, Chest Pain, Edema, Irregular Heart Rate, Lightheadedness, Palpitations, Syncope, Chest Tightness, Other ABD/GI: No: Symptoms Reported, See HPI, Abdominal Distended, Abd. Pain w/ defecation, Blood Streaked Bowels, Constipated, Diarrhea, Difficulty Swallowing , Nausea, Poor Appetite, Poor Fluid Intake, Rectal Bleeding, Vomiting, Indigestion, Abdominal cramping, Tarry Stools, Other : No: Symptoms Reported, See HPI, Burning, Dysuria, Discharge, Frequency, Flank Pain, Hematuria, Incontinence, Pain, Urgency, Testicular Mass, Testicular Swelling, Lesions, Testicular Pain, Other Musculoskeletal: No: Symptoms Reported, See HPI, Back Pain, Gout, Joint Pain, Joint Swelling, Muscle Pain, Muscle Weakness, Neck Pain, Joint Stiffness, Other Integumentary: No: Symptoms Reported, See HPI, Bruising, Change in Color, Change in Hair/Nails, Dryness, Erythema, Flushing, Lesions, Lumps, Pallor, Pruritus, Rash, Sweating, Other Neurological: No: Symptoms reported, See HPI, Headache, Numbness, Paresthesia, Pre-Existing Deficit, Seizure, Tingling, Tremors, Weakness, Unsteady Gait, Ataxia, Dizziness, Other Psychiatric: No: Anxiety, Depression, Frequent Crying, Stressors, Sleep Pattern Change, Emotional Problems, Mood Swings, Change in Appetite, Other Endocrine: No: Symptoms Reported, See HPI, Excessive Sweating, Flushing, Intolerance to Cold, Intolerance to Heat, Increased Hunger, Increased Thirst, Increased Urine, Unexplained Weight Gain, Unexplained Weight Loss, Change in Weight, Other Hematologic/Lymphatic: No: Symptoms Reported, See HPI, Anemia, Blood Clots, Easy Bleeding, Easy Bruising, Bleeding Diathesis, Lymph Node Abnormalities, Swollen Glands, Other *Physical Exam - Vital Signs Last Vital Signs Temp Pulse Resp BP Pulse Ox 98.2 F 95 H 17 155/89 100 07/28/19 20:05 07/28/19 20:05 07/28/19 20:05 07/28/19 20:05 07/28/19 20:05 - Physical Exam Comments: 07/28/19 22:42 General: AOx3 Lungs: B/L clear Heart: RRR GI: Soft, non tender, non distended, normoactive bowel sounds Extremities: LLE anterior house erythema, swelling, and tenderess to palpation Vascular Pulses: Dorsalis-Pedis (R): 2+, Doralis-Pedis (L): 2+ ED Treatment Course - LABORATORY CBC & Chemistry Diagram: 07/28/19 22:40 07/28/19 22:40 Medical Decision Making - Medical Decision Making 07/29/19 04:32 #Cellulitis - CBC/CMP - Blood cx - Tylenol 650mg PO for pain - Vanco 1250mg administered Discharge - Discharge Information Problems reviewed: Yes Clinical Impression/Diagnosis: Cellulitis of left lower leg Condition: Guarded - Admission Yes - Follow up/Referral - Patient Discharge Instructions - Post Discharge Activity
--- NOTE | 2019-07-28 22:23 | PDOC ---
Documentation entered by Morena Dejesus SCRIBE, acting as scribe for Se Slater MD. Se Slater MD: This documentation has been prepared by the Oleg carrizales Xhesika, SCRIBE, under my direction and personally reviewed by me in its entirety. I confirm that the documentation accurately reflects all work, treatment, procedures, and medical decision making performed by me. Attending Attestation - Resident Resident Name: Lucas Wilburn - ED Attending Attestation I have performed the following: I have examined & evaluated the patient, The case was reviewed & discussed with the resident, I agree w/resident's findings & plan, Exceptions are as noted - HPI HPI: 07/28/19 22:14 The patient is a 49 year old female with a significant PMH of HTN, HLD, asthma, and POD 5 after I&D for LLE abcess who presents to the emergency department for L leg erythema, swelling, and pain since last night at I&D site. Patient describes the pain as 8/10, sharp, constant, and slightly alleviated by Tylenol. The patient denies chest pain, shortness of breath, headache and dizziness. Denies fever, chills, cough, nausea, vomiting, diarrhea and constipation. Denies dysuria, frequency, urgency and hematuria. Allergies: Codeine PCP: Tiffanie Mcgrath - Physicial Exam PE: 07/28/19 22:20 Patient is awake and alert, well-nourished, in mild distress Normocephalic, atraumatic PERRLA, EOMI CTA RRR Left lower extremity: + Well demarcated area of erythema measuring approximately 12 x 7 cm located to the distal third of the extremity, warm and tender to touch, with a centrally located cavity (previously drained abscess) packed with gauze; neurovascularly intact distally - Medical Decision Making 07/28/19 22:22 Patient's 49-year-old female who presents with signs and symptoms of acute cellulitis several days after undergoing incision and drainage of a left lower extremity abscess. We'll obtain CBC/CMP/blood cultures. We'll administer IV vancomycin. Will admit.
[2019-07-28] MEDS ORDERED: ACETAMINOPHEN 1000 MG/100 ML VIAL (NON FORMULARY) IVPB ONE (22:24)
[2019-07-28] MEDS ORDERED: ACETAMINOPHEN 325 MG TABLET (FP) ONE (22:26)
[2019-07-28 22:48] LABS: HEMATOCRIT 34.9 % (32.4-45.2); HEMOGLOBIN 11.5 GM/dL (10.7-15.3); MCH 27.4 pg (25.7-33.7); MCHC 32.9 g/dl (32.0-36.0); MEAN CELL VOLUME 83.4 fl (80-96); MEAN PLT VOLUME 8.6 fl (7.5-11.1); PLATELET COUNT 367 K/MM3 (134-434); RBC 4.18 M/mm3 (3.60-5.2); RDW 14.1 % (11.6-15.6); WHITE BLOOD COUNT 9.8 K/mm3 (4.0-10.0)
[2019-07-28 23:12] LABS: BLOOD UREA NITROGEN 23.2 mg/dL (7-18); CALCIUM 8.9 mg/dL (8.5-10.1); CREATININE 1.2 mg/dL (0.55-1.3); POTASSIUM 3.6 mmol/L (3.5-5.1)
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
[2019-07-29] MEDS ORDERED: ALBUTEROL SO4 8 GM HFA INHALER IH PRN ×2 (03:33→07:20)
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
[2019-07-29 07:01] LABS: BASO % 0.5 % (0-2.0); EOS % 1.6 % (0-4.5); HEMATOCRIT 31.7 % (32.4-45.2); HEMOGLOBIN 10.7 GM/dL (10.7-15.3); LYMPH % 22.4 % (8-40); MCH 28.2 pg (25.7-33.7); MCHC 33.8 g/dl (32.0-36.0); MEAN CELL VOLUME 83.5 fl (80-96); MONO % 7.5 % (3.8-10.2); PLATELET COUNT 331 K/MM3 (134-434); RDW 14.3 % (11.6-15.6); WHITE BLOOD COUNT 7.9 K/mm3 (4.0-10.0)
[2019-07-29 07:18] LABS: ALBUMIN 3.2 g/dl (3.4-5.0); BILIRUBIN,TOTAL 0.4 mg/dL (0.2-1); BLOOD UREA NITROGEN 19.1 mg/dL (7-18); CALCIUM 8.6 mg/dL (8.5-10.1); MAGNESIUM 2.1 mg/dL (1.8-2.4); PHOSPHOROUS 4.1 mg/dL (2.5-4.9); POTASSIUM 3.7 mmol/L (3.5-5.1)
[2019-07-29] MEDS ORDERED: PIPERACILLIN/TAZOB 3.375 GM 3.375 GM in DEXTROSE 5%-WATER - 50 ML IVPB SCH (10:00)
[2019-07-29] MEDS ORDERED: PIPERACILLIN/TAZOB 3.375 GM 3.375 GM/50 ML BAG IVPB ONE (10:24)
--- NOTE | 2019-07-29 12:18 | HP ---
Admitting History and Physical - Primary Care Physician PCP: Daria Muro - Admission History of Present Illness: 49 year old female with PMH significant for HTN, HLD, asthma, and POD 5 after I& D for LLE abscess. She presented to the ER with complaints of erythema, swelling , and pain in the anterior aspect of her left house, at the site of the I&D. The pain began last night, was gradual in onset, 8/10 in intensity, sharp in quality , constant in nature, non radiating, and alleviated partially by Tylenol. She endorses chills and no other complaints in her review of systems. 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 Home Medications - Allergies Allergies/Adverse Reactions: Allergies Allergy/AdvReac Type Severity Reaction Status Date / Time codeine [Codeine] Allergy Verified 07/19/19 19:50 - Home Medications Home Medications: Ambulatory Orders Albuterol Sulfate [Proair Hfa] 8.5 gm IH BID #1 hfa.aer.ad 04/02/18 Amlodipine Besylate [Norvasc -] 10 mg PO DAILY #30 tablet 04/02/18 Furosemide [Lasix -] 20 mg PO DAILY #30 tab 04/02/18 Losartan Potassium 100 mg PO DAILY #30 tablet 04/02/18 Mometasone Furoate [Asmanex 110Mcg -] 1 puff IH DAILY #1 inhaler 04/02/18 Albuterol Sulfate Inhaler - [Ventolin HFA Inhaler -] 1 - 2 inh PO Q4H #1 inhaler 01/12/19 Dm/Acetaminophen/Doxylamine [Coricidin Hbp Cold-Multi Sympt] 10 ml PO TID #1 bottle 01/12/19 Hydralazine HCl 25 mg PO BID 01/12/19 Ibuprofen 600 mg PO TID 3 Days #18 tablet 07/05/19 Acetaminophen [Tylenol .Regular Strength -] 650 mg PO Q4H tablet 07/25/19 traMADol HCL [Ultram -] 50 mg PO BID PRN #12 tablet MDD 3 07/25/19 Pantoprazole Sodium [Protonix] 40 mg PO BID 07/29/19 Physical Examination Vital Signs: Vital Signs Temperature 98.5 F 07/29/19 09:30 Pulse Rate 69 07/29/19 09:30 Respiratory Rate 16 07/29/19 12:15 Blood Pressure 162/89 07/29/19 09:30 O2 Sat by Pulse Oximetry (%) 99 07/29/19 12:15 Constitutional: Yes: No Distress HENT: Yes: Atraumatic Neck: Yes: Supple Cardiovascular: Yes: Regular Rate and Rhythm Respiratory: Yes: CTA Bilaterally Gastrointestinal: Yes: Normal Bowel Sounds Extremities: Yes: Other (llex cellulitis) Labs: CBC, BMP 07/29/19 06:05 07/29/19 06:05 Problem List - Problems (1) Cellulitis of left lower leg Assessment/Plan: on abx id and surgery on board Code(s): L03.116 - CELLULITIS OF LEFT LOWER LIMB Assessment/Plan Laboratory Tests 07/28/19 07/28/19 07/29/19 22:40 22:40 06:05 WBC 9.8 7.9 RBC 4.18 3.80 Hgb 11.5 10.7 Hct 34.9 31.7 L MCV 83.4 83.5 MCH 27.4 28.2 MCHC 32.9 33.8 RDW 14.1 14.3 Plt Count 367 331 MPV 8.6 8.0 Absolute Neuts (auto) 5.4 Neutrophils % 68.0 Lymphocytes % 22.4 Monocytes % 7.5 Eosinophils % 1.6 Basophils % 0.5 Nucleated RBC % 0 ESR Sodium 143 Potassium 3.6 Chloride 104 Carbon Dioxide 29 Anion Gap 9 BUN 23.2 H Creatinine 1.2 Est GFR (CKD-EPI)AfAm 60.60 Est GFR (CKD-EPI)NonAf 52.28 Random Glucose 120 H Hemoglobin A1c % Calcium 8.9 Phosphorus Magnesium Total Bilirubin AST ALT Alkaline Phosphatase C-Reactive Protein Total Protein Albumin 07/29/19 07/29/19 07/29/19 06:05 06:05 06:05 WBC RBC Hgb Hct MCV MCH MCHC RDW Plt Count MPV Absolute Neuts (auto) Neutrophils % Lymphocytes % Monocytes % Eosinophils % Basophils % Nucleated RBC % ESR 73 H Sodium 143 Potassium 3.7 Chloride 105 Carbon Dioxide 29 Anion Gap 9 BUN 19.1 H Creatinine 1.0 Est GFR (CKD-EPI)AfAm 75.54 Est GFR (CKD-EPI)NonAf 65.18 Random Glucose 86 Hemoglobin A1c % 5.0 Calcium 8.6 Phosphorus 4.1 Magnesium 2.1 Total Bilirubin 0.4 AST 16 ALT 33 Alkaline Phosphatase 118 H C-Reactive Protein 3.3 H Total Protein 7.0 Albumin 3.2 L Active Medications Generic Name Dose Route Start Last Admin Trade Name Freq PRN Reason Stop Dose Admin Acetaminophen 650 mg 07/29/19 13:45 07/29/19 14:01 Tylenol - PO 650 mg Q6H PRN Administration PAIN LEVEL 1-5 Albuterol Sulfate 2 puff 07/29/19 07:20 Ventolin Hfa Inhaler - IH Q4H PRN SHORTNESS OF BREATH Albuterol Sulfate 1 puff 07/29/19 07:20 Ventolin Hfa Inhaler - IH Q4H PRN SHORTNESS OF BREATH Amlodipine Besylate 10 mg 07/30/19 10:00 Norvasc - PO DAILY JOAN Furosemide 20 mg 07/30/19 10:00 Lasix - PO DAILY JOAN Hydralazine HCl 25 mg 07/30/19 10:00 Apresoline - PO DAILY JOAN Levofloxacin 500 mg in 100 mls @ 100 mls/hr 07/29/19 18:00 Levaquin 500 Mg Premixed Ivpb - IVPB DAILY JOAN Protocol Vancomycin HCl 1,000 mg in 250 mls @ 166.667 mls/hr 07/29/19 14:45 07/29/19 16:17 Vancomycin (Pre-Docked) IVPB 166.667 mls/hr Q12H JOAN Administration Protocol Losartan Potassium 100 mg 07/30/19 10:00 Cozaar - PO DAILY JOAN Mometasone Furoate 1 puff 07/29/19 12:30 07/29/19 14:48 Asmanex 110mcg - IH Not Given DAILY JOAN
[2019-07-29 12:26] VITALS: BMI 33.8
[2019-07-29] MEDS ORDERED: VANCOMYCIN 1 GRAM (PRE-DOCKED) 1,000 MG/250 ML BAG IVPB ONE (14:00)
[2019-07-29] MEDS ORDERED: VANCOMYCIN 1 GM in D5W (PRE-DOCKED) 1,000 MG/250 ML IVPB SCH (14:00)
[2019-07-29] MEDS: ACETAMINOPHEN 325 MG TABLET (FP) PO PRN (14:01)
--- NOTE | 2019-07-29 14:07 | EKG ---
Test Reason : Blood Pressure : / mmHG Vent. Rate : 072 BPM Atrial Rate : 072 BPM P-R Int : 198 ms QRS Dur : 084 ms QT Int : 432 ms P-R-T Axes : 037 031 060 degrees QTc Int : 473 ms NORMAL SINUS RHYTHM NORMAL ECG WHEN COMPARED WITH ECG OF 28-JAN-2019 00:12, NO SIGNIFICANT CHANGE WAS FOUND Confirmed by TOMASA ORDAZ MD ([id number]) on 07/29/2019 2:07:22 PM Referred By: Confirmed By:TOMASA ORDAZ MD
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
--- NOTE | 2019-07-29 14:32 | CON.ID ---
Consult - History of Present Illness History of Present Illness: 49 y.o. female with PMH of asthma, HTN, HLD, presenting with c/o worsening LLE pain. Pt had I+D of Lt house hematoma on 07/23/19 and had completed 5 days of Cefazolin during her last hospitalization. Wound cultures revealed now growth. Now pt states her pain has gotten severe (8-9/10 intensity) and is not able to ambulate with crutches as much. She has been taking tylenol at home for pain and reports occasional chills. Otherwise she has been afebrile, without any other complaints. In the ER was afebrile, with stable vitals, without leukocytosis. Currently with mild erythema around Lt house wound site, clear drainage on gauze. Case d/w Dr. Bolivar who was following her on last admission and saw patient today. States that erythema has improved and no purulence noted. CT results noted showing some ant. calf soft tissue edema ? residual collection. 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 Home Medications - Allergies Allergies/Adverse Reactions: Allergies Allergy/AdvReac Type Severity Reaction Status Date / Time codeine [Codeine] Allergy Verified 07/19/19 19:50 - Home Medications Home Medications: Ambulatory Orders Albuterol Sulfate [Proair Hfa] 8.5 gm IH BID #1 hfa.aer.ad 04/02/18 Amlodipine Besylate [Norvasc -] 10 mg PO DAILY #30 tablet 04/02/18 Furosemide [Lasix -] 20 mg PO DAILY #30 tab 04/02/18 Losartan Potassium 100 mg PO DAILY #30 tablet 04/02/18 Mometasone Furoate [Asmanex 110Mcg -] 1 puff IH DAILY #1 inhaler 04/02/18 Albuterol Sulfate Inhaler - [Ventolin HFA Inhaler -] 1 - 2 inh PO Q4H #1 inhaler 01/12/19 Dm/Acetaminophen/Doxylamine [Coricidin Hbp Cold-Multi Sympt] 10 ml PO TID #1 bottle 01/12/19 Hydralazine HCl 25 mg PO DAILY 01/12/19 Ibuprofen 600 mg PO TID 3 Days #18 tablet 07/05/19 Acetaminophen [Tylenol .Regular Strength -] 650 mg PO Q4H tablet 07/25/19 traMADol HCL [Ultram -] 50 mg PO BID PRN #12 tablet MDD 3 07/25/19 Review of Systems - Review of Systems Constitutional: reports: No Symptoms. denies: Chills, Diaphoresis, Fever, Lethargy, Loss of Appetite, Malaise, Night Sweats, Unintentional Wgt. Loss, Weakness, Other Eyes: reports: No Symptoms. denies: Blind Spots, Blurred Vision, Double Vision , Eye Pain, Floaters, Photophobia, Recent Change in Vision, Other HENT: reports: No Symptoms. denies: Difficult Swallowing, Ear Discharge, Ear Pain, Epistaxis, Gingival Bleeding, Hearing Loss, Mouth Swelling, Nasal Congestion, Ocular Prosthesis, Throat Pain, Toothache, Ringing in Ears, Other Neck: reports: No Symptoms. denies: Decreased ROM, Lumps, Pain on Movement, Stiffness, Swollen Glands, Tenderness, Other Cardiovascular: reports: No Symptoms. denies: Chest Pain, Edema, Palpitations, Shortness of Breath, Other Respiratory: reports: No Symptoms. denies: Cough, Exercise Intolerance, Hemoptysis, Orthopnea, PND, Snoring, SOB, SOB on Exertion, Wheezing, Other Gastrointestinal: reports: No Symptoms. denies: Abdominal Pain, Bloating, Constipation, Diarrhea, Dysphagia, Indigestion, Melena, Nausea, Rectal Bleeding , Vomiting, Vomiting Blood, Other Genitourinary: reports: No Symptoms. denies: Burning, Discharge, Dysuria, Flank Pain, Frequency, Hematuria, Incontinence, Lesions, Menses, Pain, Testicular Mass, Testicular Pain, Testicular Swelling, Urgency, Vaginal Bleeding , Other Breasts: reports: No Symptoms Reported. denies: See HPI, Breast Implants, Discharge from Nipple, Lumps, Pain, Skin Changes, Other Musculoskeletal: reports: Extremity Pain. denies: No Symptoms, Back Pain, Crepitus, Decreased ROM, Joint Pain, Joint Swelling, Muscle Pain, Muscle Cramps , Muscle Weakness, Other Integumentary: reports: Wound (Lt ant house wound with pain/erythema). denies: No Symptoms, Blister, Bruising, Change in Color, Eczema, Erythema, Incision, Lesions, Lump, Pallor, Pruritis, Rash, Other Neurological: reports: No Symptoms. denies: Change in LOC, Change in Speech, Confusion, Dizziness, Headache, Incoordination, Numbness, Parasthesia, Pre- Existing Deficit, Seizure, Syncope, Tremors, Unsteady Gait, Weakness, Other Endocrine: reports: No Symptoms. denies: Excessive Sweating, Flushing, Increased Hunger, Increased Thirst, Intolerance to Cold, Intolerance to Heat, Unexplained Weight Gain, Unexplained Weight Loss, Other Hematology/Lymphatic: reports: No Symptoms. denies: Easily Bruised, Excessive Bleeding, Swollen Glands, Other Psychiatric: reports: No Symptoms Physical Exam Vital Signs: Vital Signs Temperature 98.2 F 07/29/19 13:09 Pulse Rate 72 07/29/19 13:09 Respiratory Rate 20 07/29/19 13:09 Blood Pressure 179/84 H 07/29/19 13:09 O2 Sat by Pulse Oximetry (%) 99 07/29/19 12:15 Constitutional: Yes: No Distress, Calm Eyes: Yes: Conjunctiva Clear, EOM Intact HENT: Yes: Atraumatic Neck: Yes: Supple Cardiovascular: Yes: Regular Rate and Rhythm Respiratory: Yes: CTA Bilaterally Gastrointestinal: Yes: Normal Bowel Sounds, Soft, Abdomen, Obese Renal/: Yes: WNL Musculoskeletal: Yes: WNL Extremities: Yes: WNL Edema: No Peripheral Pulses WNL: Yes Integumentary: Yes: WNL Wound/Incision: Yes: Other (Lt anterior house wound with mild surrounding edema/ erythema, + pain, packing/ dressing with clear yellow drainage) Neurological: Yes: Alert, Oriented Labs: CBC, BMP 07/29/19 06:05 07/29/19 06:05 Laboratory Tests 07/28/19 07/28/19 07/29/19 22:40 22:40 06:05 WBC 9.8 7.9 RBC 4.18 3.80 Hgb 11.5 10.7 Hct 34.9 31.7 L MCV 83.4 83.5 MCH 27.4 28.2 MCHC 32.9 33.8 RDW 14.1 14.3 Plt Count 367 331 MPV 8.6 8.0 Absolute Neuts (auto) 5.4 Neutrophils % 68.0 Lymphocytes % 22.4 Monocytes % 7.5 Eosinophils % 1.6 Basophils % 0.5 Nucleated RBC % 0 ESR Sodium 143 Potassium 3.6 Chloride 104 Carbon Dioxide 29 Anion Gap 9 BUN 23.2 H Creatinine 1.2 Est GFR (CKD-EPI)AfAm 60.60 Est GFR (CKD-EPI)NonAf 52.28 Random Glucose 120 H Hemoglobin A1c % Calcium 8.9 Phosphorus Magnesium Total Bilirubin AST ALT Alkaline Phosphatase C-Reactive Protein Total Protein Albumin 07/29/19 07/29/19 07/29/19 06:05 06:05 06:05 WBC RBC Hgb Hct MCV MCH MCHC RDW Plt Count MPV Absolute Neuts (auto) Neutrophils % Lymphocytes % Monocytes % Eosinophils % Basophils % Nucleated RBC % ESR 73 H Sodium 143 Potassium 3.7 Chloride 105 Carbon Dioxide 29 Anion Gap 9 BUN 19.1 H Creatinine 1.0 Est GFR (CKD-EPI)AfAm 75.54 Est GFR (CKD-EPI)NonAf 65.18 Random Glucose 86 Hemoglobin A1c % 5.0 Calcium 8.6 Phosphorus 4.1 Magnesium 2.1 Total Bilirubin 0.4 AST 16 ALT 33 Alkaline Phosphatase 118 H C-Reactive Protein 3.3 H Total Protein 7.0 Albumin 3.2 L Imaging - Results Cat Scan: Report Reviewed Ultrasound: Report Reviewed Problem List - Problems (1) Cellulitis of left lower leg Code(s): L03.116 - CELLULITIS OF LEFT LOWER LIMB (2) Hyperlipidemia Code(s): E78.5 - HYPERLIPIDEMIA, UNSPECIFIED (3) Asthma Code(s): J45.909 - UNSPECIFIED ASTHMA, UNCOMPLICATED Qualifiers: Asthma severity: mild Asthma persistence: intermittent Asthma complication type: uncomplicated Qualified Code(s): J45.20 - Mild intermittent asthma, uncomplicated (4) GERD (gastroesophageal reflux disease) Code(s): K21.9 - GASTRO-ESOPHAGEAL REFLUX DISEASE WITHOUT ESOPHAGITIS Qualifiers: Esophagitis presence: without esophagitis Qualified Code(s): K21.9 - Gastro -esophageal reflux disease without esophagitis (5) Hypertension Code(s): I10 - ESSENTIAL (PRIMARY) HYPERTENSION Qualifiers: Hypertension type: essential hypertension Qualified Code(s): I10 - Essential (primary) hypertension (6) Obesity (BMI 30-39.9) Code(s): E66.9 - OBESITY, UNSPECIFIED Assessment/Plan 49 y.o. female with PMH of asthma, HTN, HLD, presenting with c/o worsening LLE pain. Pt had I+D of Lt house hematoma (developed post trauma to site) on 07/23/19 and is s/p 5 days of Cefazolin. LLE cellulitis s/p Lt house hematoma I+D HTN HLD Asthma Obesity -- Last admission records reviewed, latest imaging results noted, case d/w Dr. Bolivar -- For now would start Vancomycin and Levaquin empirically -- Obtain wound culture if possible -- Followup blood culture results -- monitor renal function -- Leg elevation -- Pain control -- Surgery following Pt is afebrile, without leukocytosis, vitals stable Will follow Thank you
[2019-07-29] MEDS: MOMETASONE FUROATE 110 MCG/IH INHALER IH SCH (14:48)
[2019-07-29] MEDS: VANCOMYCIN 1 GRAM (PRE-DOCKED) 1,000 MG/250 ML BAG IVPB SCH (16:17)
[2019-07-29] MEDS ORDERED: PANTOPRAZOLE 40 MG TABLET (FP) PO SCH (22:30)
[2019-07-29] MEDS: hydrALAZINE HCL 25 MG TABLET (FP) PO SCH (22:46)
[2019-07-29] MEDS: PANTOPRAZOLE 40 MG TABLET (FP) PO SCH (22:46)
[2019-07-30] MEDS: VANCOMYCIN 1 GRAM (PRE-DOCKED) 1,000 MG/250 ML BAG IVPB SCH ×2 (03:09→14:14)
[2019-07-30] MEDS: ACETAMINOPHEN 325 MG TABLET (FP) PO PRN ×2 (03:25→13:48)
[2019-07-30] MEDS: FUROSEMIDE 20 MG TABLET (FP) PO SCH (09:37)
[2019-07-30] MEDS: hydrALAZINE HCL 25 MG TABLET (FP) PO SCH ×2 (09:37→22:38)
[2019-07-30] MEDS: PANTOPRAZOLE 40 MG TABLET (FP) PO SCH ×2 (09:37→22:38)
[2019-07-30] MEDS: amLODIPine BESYLATE 10 MG TABLET (FP) PO SCH (09:37)
[2019-07-30] MEDS: LOSARTAN POTASSIUM 50 MG TABLET (FP) PO SCH (09:38)
[2019-07-30] MEDS ORDERED: hydrALAZINE HCL 25 MG TABLET (FP) PO SCH (10:00)
--- NOTE | 2019-07-30 12:59 | PN ---
Progress Note, Physician History of Present Illness: wound starting to look better no issues burn out tender lace - Current Medication List Current Medications: Active Medications Acetaminophen (Tylenol -) 650 mg PO Q6H PRN PRN Reason: PAIN LEVEL 1-5 Last Admin: 07/30/19 03:25 Dose: 650 mg Albuterol Sulfate (Ventolin Hfa Inhaler -) 2 puff IH Q4H PRN PRN Reason: SHORTNESS OF BREATH Albuterol Sulfate (Ventolin Hfa Inhaler -) 1 puff IH Q4H PRN PRN Reason: SHORTNESS OF BREATH Amlodipine Besylate (Norvasc -) 10 mg PO DAILY [facility] Last Admin: 07/30/19 09:37 Dose: 10 mg Furosemide (Lasix -) 20 mg PO DAILY [facility] Last Admin: 07/30/19 09:37 Dose: 20 mg Hydralazine HCl (Apresoline -) 25 mg PO BID [facility] Last Admin: 07/30/19 09:37 Dose: 25 mg Levofloxacin (Levaquin 500 Mg Premixed Ivpb -) 500 mg in 100 mls @ 100 mls/hr IVPB DAILY [facility]; Protocol Last Admin: 07/30/19 09:39 Dose: 100 mls/hr Vancomycin HCl (Vancomycin (Pre-Docked)) 1,000 mg in 250 mls @ 166.667 mls/hr IVPB Q12H JOAN; Protocol Last Admin: 07/30/19 03:09 Dose: 166.667 mls/hr Losartan Potassium (Cozaar -) 100 mg PO DAILY [facility] Last Admin: 07/30/19 09:38 Dose: 100 mg Mometasone Furoate (Asmanex 110mcg -) 1 puff IH DAILY [facility] Last Admin: 07/29/19 14:48 Dose: Not Given Pantoprazole Sodium (Protonix -) 40 mg PO BID [facility] Last Admin: 07/30/19 09:37 Dose: 40 mg - Objective Vital Signs: Vital Signs Temperature 98.6 F 07/30/19 08:57 Pulse Rate 77 07/30/19 08:57 Respiratory Rate 20 07/30/19 08:57 Blood Pressure 143/103 H 07/30/19 08:57 O2 Sat by Pulse Oximetry (%) 100 07/30/19 08:55 Constitutional: Yes: No Distress, Calm Cardiovascular: Yes: Regular Rate and Rhythm Respiratory: Yes: Regular, CTA Bilaterally Gastrointestinal: Yes: Normal Bowel Sounds, Soft Musculoskeletal: Yes: Other Extremities: Yes: Other (dressing dry intact) Wound/Incision: Yes: Dressing Dry and Intact, Dressing Removed Neurological: Yes: Alert, Oriented Labs: CBC, BMP 07/29/19 06:05 07/29/19 06:05 Assessment/Plan Problem List - Problems (1) Cellulitis of left lower leg Code(s): L03.116 - CELLULITIS OF LEFT LOWER LIMB (2) Hyperlipidemia Code(s): E78.5 - HYPERLIPIDEMIA, UNSPECIFIED (3) Asthma Code(s): J45.909 - UNSPECIFIED ASTHMA, UNCOMPLICATED Qualifiers: Asthma severity: mild Asthma persistence: intermittent Asthma complication type: uncomplicated Qualified Code(s): J45.20 - Mild intermittent asthma, uncomplicated (4) GERD (gastroesophageal reflux disease) Code(s): K21.9 - GASTRO-ESOPHAGEAL REFLUX DISEASE WITHOUT ESOPHAGITIS Qualifiers: Esophagitis presence: without esophagitis Qualified Code(s): K21.9 - Gastro -esophageal reflux disease without esophagitis (5) Hypertension Code(s): I10 - ESSENTIAL (PRIMARY) HYPERTENSION Qualifiers: Hypertension type: essential hypertension Qualified Code(s): I10 - Essential (primary) hypertension (6) Obesity (BMI 30-39.9) Code(s): E66.9 - OBESITY, UNSPECIFIED plan continue abx await for final cx rest as per the team
[2019-07-30] MEDS: MOMETASONE FUROATE 110 MCG/IH INHALER IH SCH (14:13)
--- NOTE | 2019-07-30 17:26 | PN ---
Progress Note, Physician - Current Medication List Current Medications: Active Medications Acetaminophen (Tylenol -) 650 mg PO Q6H PRN PRN Reason: PAIN LEVEL 1-5 Last Admin: 07/30/19 13:48 Dose: 650 mg Albuterol Sulfate (Ventolin Hfa Inhaler -) 2 puff IH Q4H PRN PRN Reason: SHORTNESS OF BREATH Albuterol Sulfate (Ventolin Hfa Inhaler -) 1 puff IH Q4H PRN PRN Reason: SHORTNESS OF BREATH Amlodipine Besylate (Norvasc -) 10 mg PO DAILY [facility] Last Admin: 07/30/19 09:37 Dose: 10 mg Furosemide (Lasix -) 20 mg PO DAILY [facility] Last Admin: 07/30/19 09:37 Dose: 20 mg Hydralazine HCl (Apresoline -) 25 mg PO BID [facility] Last Admin: 07/30/19 09:37 Dose: 25 mg Levofloxacin (Levaquin 500 Mg Premixed Ivpb -) 500 mg in 100 mls @ 100 mls/hr IVPB DAILY [facility]; Protocol Last Admin: 07/30/19 09:39 Dose: 100 mls/hr Vancomycin HCl (Vancomycin (Pre-Docked)) 1,000 mg in 250 mls @ 166.667 mls/hr IVPB Q12H [facility]; Protocol Last Admin: 07/30/19 14:14 Dose: 166.667 mls/hr Losartan Potassium (Cozaar -) 100 mg PO DAILY [facility] Last Admin: 07/30/19 09:38 Dose: 100 mg Mometasone Furoate (Asmanex 110mcg -) 1 puff IH DAILY [facility] Last Admin: 07/30/19 14:13 Dose: Not Given Pantoprazole Sodium (Protonix -) 40 mg PO BID [facility] Last Admin: 07/30/19 09:37 Dose: 40 mg - Objective Vital Signs: Vital Signs Temperature 98.5 F 07/30/19 14:00 Pulse Rate 85 07/30/19 14:00 Respiratory Rate 20 07/30/19 14:00 Blood Pressure 153/92 07/30/19 14:00 O2 Sat by Pulse Oximetry (%) 100 07/30/19 08:55 Constitutional: Yes: No Distress HENT: Yes: Atraumatic Neck: Yes: Supple Cardiovascular: Yes: Regular Rate and Rhythm Respiratory: Yes: CTA Bilaterally Gastrointestinal: Yes: Normal Bowel Sounds Extremities: Yes: WNL Edema: No Peripheral Pulses WNL: Yes Neurological: Yes: Alert, Oriented Labs: CBC, BMP 07/29/19 06:05 07/29/19 06:05 Problem List - Problems (1) Cellulitis of left lower leg Assessment/Plan: on abx id and surgery on board Code(s): L03.116 - CELLULITIS OF LEFT LOWER LIMB
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
[2019-07-31] MEDS: VANCOMYCIN 1 GRAM (PRE-DOCKED) 1,000 MG/250 ML BAG IVPB SCH ×2 (03:25→13:52)
[2019-07-31] MEDS ORDERED: PT OWN MED DRAWER 7, Y5N ONE (09:36)
[2019-07-31] MEDS: hydrALAZINE HCL 25 MG TABLET (FP) PO SCH ×2 (10:06→22:15)
[2019-07-31] MEDS: FUROSEMIDE 20 MG TABLET (FP) PO SCH (10:07)
[2019-07-31] MEDS: LOSARTAN POTASSIUM 50 MG TABLET (FP) PO SCH (10:07)
[2019-07-31] MEDS: amLODIPine BESYLATE 10 MG TABLET (FP) PO SCH (10:08)
[2019-07-31] MEDS: PANTOPRAZOLE 40 MG TABLET (FP) PO SCH ×2 (10:08→22:15)
[2019-07-31] MEDS: ACETAMINOPHEN 325 MG TABLET (FP) PO PRN ×2 (10:29→14:43)
[2019-07-31] MEDS: MOMETASONE FUROATE 110 MCG/IH INHALER IH SCH (11:55)
--- NOTE | 2019-07-31 12:21 | PN ---
Progress Note, Physician - Current Medication List Current Medications: Active Medications Acetaminophen (Tylenol -) 650 mg PO Q6H PRN PRN Reason: PAIN LEVEL 1-5 Last Admin: 07/31/19 10:29 Dose: 650 mg Albuterol Sulfate (Ventolin Hfa Inhaler -) 2 puff IH Q4H PRN PRN Reason: SHORTNESS OF BREATH Albuterol Sulfate (Ventolin Hfa Inhaler -) 1 puff IH Q4H PRN PRN Reason: SHORTNESS OF BREATH Amlodipine Besylate (Norvasc -) 10 mg PO DAILY [facility] Last Admin: 07/31/19 10:08 Dose: 10 mg Furosemide (Lasix -) 20 mg PO DAILY [facility] Last Admin: 07/31/19 10:07 Dose: 20 mg Hydralazine HCl (Apresoline -) 25 mg PO BID [facility] Last Admin: 07/31/19 10:06 Dose: 25 mg Levofloxacin (Levaquin 500 Mg Premixed Ivpb -) 500 mg in 100 mls @ 100 mls/hr IVPB DAILY [facility]; Protocol Last Admin: 07/31/19 10:08 Dose: 100 mls/hr Vancomycin HCl (Vancomycin (Pre-Docked)) 1,000 mg in 250 mls @ 166.667 mls/hr IVPB Q12H [facility]; Protocol Last Admin: 07/31/19 03:25 Dose: 166.667 mls/hr Losartan Potassium (Cozaar -) 100 mg PO DAILY [facility] Last Admin: 07/31/19 10:07 Dose: 100 mg Mometasone Furoate (Asmanex 110mcg -) 1 puff IH DAILY [facility] Last Admin: 07/31/19 11:55 Dose: Not Given Pantoprazole Sodium (Protonix -) 40 mg PO BID [facility] Last Admin: 07/31/19 10:08 Dose: 40 mg - Objective Vital Signs: Vital Signs Temperature 98.4 F 07/31/19 09:00 Pulse Rate 80 07/31/19 09:00 Respiratory Rate 20 07/31/19 09:00 Blood Pressure 147/86 07/31/19 09:00 O2 Sat by Pulse Oximetry (%) 100 07/30/19 08:55 Constitutional: Yes: No Distress HENT: Yes: Atraumatic Neck: Yes: Supple Cardiovascular: Yes: Regular Rate and Rhythm Respiratory: Yes: CTA Bilaterally Gastrointestinal: Yes: Normal Bowel Sounds Extremities: Yes: Other (llex cellulitis) Neurological: Yes: Alert, Oriented Labs: CBC, BMP 07/29/19 06:05 07/29/19 06:05 Problem List - Problems (1) Cellulitis of left lower leg Code(s): L03.116 - CELLULITIS OF LEFT LOWER LIMB
[2019-07-31] MEDS: ALBUTEROL SO4 8 GM HFA INHALER IH PRN ×2 (14:17→22:17)
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
[2019-07-31] MEDS: LACTOBACILLUS ACIDOPHILUS 1 TABLET PO SCH (17:27)
[2019-07-31] MEDS: DOXYCYCLINE HYCLATE 100 MG CAPSULE PO SCH (17:27)
[2019-08-01] MEDS: LOSARTAN POTASSIUM 50 MG TABLET (FP) PO SCH (09:22)
[2019-08-01] MEDS: LACTOBACILLUS ACIDOPHILUS 1 TABLET PO SCH (09:22)
[2019-08-01] MEDS: hydrALAZINE HCL 25 MG TABLET (FP) PO SCH (09:22)
[2019-08-01] MEDS: amLODIPine BESYLATE 10 MG TABLET (FP) PO SCH (09:23)
[2019-08-01] MEDS: PANTOPRAZOLE 40 MG TABLET (FP) PO SCH (09:23)
[2019-08-01] MEDS: FUROSEMIDE 20 MG TABLET (FP) PO SCH (09:23)
[2019-08-01] MEDS: DOXYCYCLINE HYCLATE 100 MG CAPSULE PO SCH (09:23)
[2019-08-01] MEDS ORDERED: ALBUTEROL SO4 8 GM HFA INHALER IH PRN (09:37)
[2019-08-01] MEDS: ACETAMINOPHEN 325 MG TABLET (FP) PO PRN (12:45)
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
--- NOTE | 2019-08-01 14:28 | DS ---
Physical Examination Vital Signs: Vital Signs Temperature 98.1 F 08/01/19 09:50 Pulse Rate 73 08/01/19 09:50 Respiratory Rate 18 08/01/19 09:50 Blood Pressure 148/87 08/01/19 09:50 O2 Sat by Pulse Oximetry (%) 100 08/01/19 09:00 Labs: CBC, BMP 07/29/19 06:05 07/29/19 06:05 Discharge Summary Reason For Visit: CELLULITIS Current Active Problems Cellulitis of left lower leg (Acute) Condition: Guarded - Instructions Diet, Activity, Other Instructions: Wound Care: left lower leg [facility] [place] to resume seeing pt for daily wound packing/wound care after discharge home saline-damp small gauze packing to wound daily, covered with folded gauze and tape may shower with dressing/packing off/out daily after nurse comes the first time and routine established sister to help with dressing changes when [facility] not there Take all antibiotics as prescribed until done, even if you are feeling better Take a probiotic daily +/- yogurt daily while taking antibiotics and for several days after See your primary care physician within 1-2 weeks Follow up with Dr. Bolivar, surgery, in [facility] ([address] [facility] in one week - call [phone] for appointment Disposition: V[facility]/HOME HEALTH CARE - Home Medications Comprehensive Discharge Medication List: Ambulatory Orders Albuterol Sulfate [Proair Hfa] 8.5 gm IH BID #1 [id number] 04/02/18 Amlodipine Besylate [Norvasc -] 10 mg PO DAILY #30 tablet 04/02/18 Furosemide [Lasix -] 20 mg PO DAILY #30 tab 04/02/18 Losartan Potassium 100 mg PO DAILY #30 tablet 04/02/18 Mometasone Furoate [Asmanex 110Mcg -] 1 puff IH DAILY #1 inhaler 04/02/18 Albuterol Sulfate Inhaler - [Ventolin HFA Inhaler -] 1 - 2 inh PO Q4H #1 inhaler 01/12/19 Dm/Acetaminophen/Doxylamine [Coricidin Hbp Cold-Multi Sympt] 10 ml PO TID #1 bottle 01/12/19 Hydralazine HCl 25 mg PO BID 01/12/19 Ibuprofen 600 mg PO TID 3 Days #18 tablet 07/05/19 Acetaminophen [Tylenol .Regular Strength -] 650 mg PO Q4H tablet 07/25/19 traMADol HCL [Ultram -] 50 mg PO BID PRN #12 tablet MDD 3 07/25/19 Pantoprazole Sodium [Protonix] 40 mg PO BID 07/29/19 Doxycycline Hyclate [Vibramycin -] 100 mg PO BID@1000,1800 #12 capsule 08/01/19 levoFLOXacin [Levaquin -] 500 mg PO DAILY@0600 #6 tablet 08/01/19
[2019-08-01 15:04] VITALS: BP 139/94; PULSE 90
[2019-08-01 15:35] VITALS: TEMP 98.4
== END 2019-08-01 16:36 | disposition home health service (06) | DRG 603 ==
LOC: JER 20:05 → JERBED 07-29 02:40 → J5S 07-29 11:23
PROVIDERS: ADMIT Internal Medicine; ATTEND Internal Medicine
DX: L03.116 Cellulitis of left lower limb (principal); I10 Essential (primary) hypertension; J45.20 Mild intermittent asthma, uncomplicated; E78.5 Hyperlipidemia, unspecified; K21.9 Gastro-esophageal reflux disease without esophagitis; E66.9 Obesity, unspecified; Z68.33 Body mass index [BMI] 33.0-33.9, adult
CPT/HCPCS: 36415; 71046-TC-FY; 73700-TC-RT; 80048; 80053; 83036; 83735; 84100; 85025; 85027; 85651; 86140; 87040; 93005; 93010; 99284-25

== ENCOUNTER 2019-10-28 13:54 | Inpatient (IN) | payer BC ==
--- NOTE | 2019-10-28 15:51 | PDOC ---
History of Present Illness - General Chief Complaint: Lightheaded Stated Complaint: PAIN IN RT. LEG Time Seen by Provider: 10/28/19 15:50 Past History - Past Medical History Allergies/Adverse Reactions: Allergies Allergy/AdvReac Type Severity Reaction Status Date / Time codeine [Codeine] Allergy Verified 10/28/19 14:05 ibuprofen [From Motrin] Allergy Verified 10/28/19 14:05 Home Medications: Ambulatory Orders Amlodipine Besylate [Norvasc -] 10 mg PO DAILY #30 tablet 04/02/18 Furosemide [Lasix -] 20 mg PO DAILY #30 tab 04/02/18 Losartan Potassium 100 mg PO DAILY #30 tablet 04/02/18 Albuterol Sulfate Inhaler - [Ventolin HFA Inhaler -] 1 - 2 inh PO Q4H #1 inhaler 01/12/19 Hydralazine HCl 25 mg PO BID 01/12/19 Acetaminophen [Tylenol .Regular Strength -] 650 mg PO Q4H tablet 07/25/19 Pantoprazole Sodium [Protonix] 40 mg PO BID 07/29/19 Budesonide/Formeterol Fumarate [SYMBICORT 160/4.5mcg -] 1 puff IH DAILY Anemia: No Asthma: Yes Cancer: No Cardiac Disorders: Yes (Heart Murmur) CVA: No COPD: No CHF: No Dementia: No Diabetes: No GI Disorders: Yes (GERD) Disorders: No HTN: Yes Hypercholesterolemia: Yes Liver Disease: No Seizures: No Thyroid Disease: No - Immunization History Td Vaccination: Yes Immunization Up to Date: Yes - Psycho Social/Smoking Cessation Hx Smoking Status: No Smoking History: Never smoked Years of Tobacco Use: 0 Have you smoked in the past 12 months: No Number of Cigarettes Smoked Daily: 0 Cigars Per Day: 0 Hx Alcohol Use: No Drug/Substance Use Hx: No Substance Use Type: None Hx Substance Use Treatment: No *Physical Exam - Vital Signs Last Vital Signs Temp Pulse Resp BP Pulse Ox 98 F 75 18 150/73 98 10/28/19 14:02 10/28/19 14:02 10/28/19 14:02 10/28/19 14:02 10/28/19 14:02 ED Treatment Course - LABORATORY CBC & Chemistry Diagram: 10/28/19 16:45 10/28/19 16:45 Medical Decision Making - Medical Decision Making 10/28/19 17:34 HPI: 49yo F hx obesity, HTN, HLD, asthma, anemia, glaucoma, and LLE abscess/ cellulitis (d/c 08/01/19) presents from home c/o 4 days lightheadedness, intermittent SOB/ALVARADO, and b/l leg pain/heaviness/swelling, R>L. Endorse fatigue since d/c 08/01/19. C/o lightheadedness x 4days, gradual onset, constant, worse with exertion, associated with intermittent SOB, no hx similar sx. Also c/o b/l leg pain and heaviness x4 days, pain worst behind R knee, denies trauma or inciting event, no hx similar sx, endorses swelling, denies CHF, normally walks without assistance but requires walker x2 days. Endorses dry cough at night and nausea yest, resolved. Also c/o b/l forearm red dots/rash for a few days on her and entire family. Denies bed bugs, states disinfects and washes sheets and laundry every 3 days. Denies itching, pain, insect bites, outdoor activity. Granddaughter went to doctor with the same rash and was told not infectious, but then spread to entire family at home. Denies hx DVT/PE, recent surgery, hemoptysis, recent travel, hormone or estrogen use, trauma, fever, chills, headache, focal weakness, vision changes, chest pain, palpitations, abdominal pain, blood in stool, diarrhea, constipation, vomiting, dysuria, hematuria, confusion. ROS: Constitutional: Positive for fatigue. Negative for chills, fever, diaphoresis. HENT: Negative for sore throat, rhinorrhea, congestion. Eyes: Positive for glaucoma. Negative for visual change. Respiratory: Positive for shortness of breath and cough. Negative for wheezing. Cardiovascular: Positive for BLE swelling. Negative for chest pain, palpitations. Gastrointestinal: Positive for nausea. Negative for abdominal pain, blood in stool, constipation, diarrhea, and vomiting. Genitourinary: Negative for dysuria, flank pain, and hematuria. Musculoskeletal: Positive for BLE pain and heaviness and swelling, chronic back pain. Negative for myalgias, and neck pain. Skin: Positive for b/l forarm rashes. Neurological: Positive for light-headedness. Negative for vertigo, syncope, focal weakness, numbness and headaches. Psychiatric/Behavioral: Negative for behavioral problems and confusion. PE: Gen: Alert, NAD, comfortable-appearing, obese HEENT: PERRL, EOMI, MMM, NCAT. No conjunctival pallor. Sclera are non-icteric. CV: Regular rate and rhythm. No murmurs, rubs, or gallops. PULM: No resp distress. CTAB, no wheezes, rales, or rhonchi. ABD: protuberant, soft, NT/ND, no rebound tenderness or guarding, no CVA tenderness. BACK: No TTP of c/t/l-spine. No step-offs or deformities. MSK: No bony deformities. 2+ pulses in all extremities. NEURO: AAOx3. PERRL. CN 2-12 intact. 5/5 strength in all extremities. Sensation to light touch intact in all extremities EXTREMITIES: No cyanosis. No clubbing. +BLE edema. +R calf tenderness. Full ROM of legs. PSYCH: Normal mood and thought pattern. SKIN: Warm and dry. Normal capillary refill. No jaundice. +few small erythematous circular spots to b/l forearms. MDM: 49yo F hx obesity, HTN, HLD, asthma, anemia, glaucoma, and LLE abscess/ cellulitis (d/c 08/01/19) presents from home with 4 days lightheadedness, intermittent SOB/ALVARADO, and b/l leg pain/heaviness/swelling, R>L. Hemodynamically stable, afebrile, neurologically intact, benign exam. Ddx lightheadedness: ACS/OK, CHF, PNA, PE (low concern, RF obesity only, DVT sx) , infection, anemia, metabolic derangement Ddx LE pain/swelling/heaviness: CHF, DVT, vascular insufficiency, diabetic neuropathy, OA, generalized weakness 2/2 above ddx Rash - no e/o cellulitis or abscess, consider bed bugs vs insect bites vs other derm pathology -EKG -CXR -Duplex BLEs -IVF -CBC,CMP,Mg,Phos,Coags,BNP,Cardiac profile,D-dimer,UA/UC/Upreg -Pain management: tylenol (pt refuses motrin/anti-inflammatories because states makes BP go really high and doctor told her not to take them) -Dispo: pending w/u, likely adm tele obs ACS r/o 10/28/19 18:46 EKG reviewed: NSR, 63bpm, QTc 454ms, normal axis, no TWIs, no ST elevations or depressions Labs reviewed. K 3.1 - replete 10/28/19 19:23 D-dimer 721 -CTPE ordered 10/28/19 19:38 CXR read: since 07/29/19, more prominent mediastinum but no sign of an acute process 10/28/19 19:56 Duplex: no DVT. Approx 5.4x3.7x1cm R popliteal fossa cyst seen containing intraluminal debris; no e/o cyst rupture/dissection 10/28/19 20:40 UA negative for UTI. CT called - pt too claustrophobic to get CT - order 0.5mg Ativan. 10/28/19 23:41 Pt was unable to do CT after 0.5mg Ativan. Additional 1mg Ativan given. CT obtained. CTPA read: no e/o PE; main PA diameter appears somewhat dilated measuring 3.4cm suggestive of increased pulmonary arterial pressure; no CT e/o acute intrathoracic pathology [employer] sent for admission for ACS r/o and presyncope eval tele obs Discharge - Discharge Information Problems reviewed: Yes Clinical Impression/Diagnosis: Dizziness, Dyspnea on exertion Condition: Stable - Admission Yes - Follow up/Referral - Patient Discharge Instructions - Post Discharge Activity
[2019-10-28] MEDS ORDERED: ACETAMINOPHEN 1000 MG/100 ML VIAL (NON FORMULARY) IVPB ONE (16:11)
[2019-10-28] MEDS ORDERED: SODIUM CHLORIDE 0.9% 500 ML INFUS.BAG IV ONE (16:11)
[2019-10-28] MEDS ORDERED: ACETAMINOPHEN INJECTION 100 ML IVPB ONE (16:29)
--- NOTE | 2019-10-28 17:40 | PDOC ---
Attending Attestation - Resident Resident Name: Yudi Cha - ED Attending Attestation I have performed the following: I have examined & evaluated the patient, The case was reviewed & discussed with the resident, I agree w/resident's findings & plan, Exceptions are as noted - HPI HPI: 10/28/19 18:23 Ms. King is a 49 yo F h/o HTN, HLD, GERD, asthma, LLE abscess (s/p traumatic injury) Patient presents to the ER today due to complaint of swelling of the right medial calf as well as tenderness. Symptoms have been present for the past 3 to 4 days. She is tried Tylenol which is mildly improved her symptoms. She is also tried sitting in a warm tub. No fevers, no chills. No traumatic injury to the left leg. Patient presents today because in addition to her left leg pain she is felt a sense that both of her legs are heavy. She denies any chest pain, any shortness of breath. She denies exertional dyspnea. She does note intermittent dizziness (no vertigo). - Physicial Exam PE: 10/28/19 17:30 GENERAL: The patient is in no acute distress. ENT: Ears normal, nares patent, oropharynx clear without exudates. Moist mucous membranes. NECK: Normal range of motion, supple LUNGS: Breath sounds equal, clear to auscultation bilaterally. No wheezes, and no crackles. HEART:Regular rate and rhythm, normal S1 and S2 without murmur, rub or gallop. ABDOMEN: Soft, nontender, normoactive bowel sounds. EXTREMITIES: Right medial posterior leg with firm area, this is tender to palpation, limited ROM due to this tender area NEUROLOGICAL: Cranial nerves II through XII grossly intact. Normal speech. No focal neurological deficits. SKIN: Warm, Dry, normal turgor, no rashes or lesions noted. 10/28/19 18:25 - Medical Decision Making 10/28/19 18:26 49 yo F presenting with dizziness, left leg tenderness and pain DD: DVT, Denise's cyst, musculoskeletal pain Dizziness: Anemia, electrolyte abnormality, ACS, PE Will do: Labs EKG CXR CTA Re Assess Laboratory Tests 10/28/19 10/28/19 16:45 17:00 WBC 7.1 Hgb 11.3 Hct 33.7 Plt Count 307 Urine HCG, Qual Negative 10/28/19 18:36 Laboratory Tests 10/28/19 16:45 BUN 37.1 H Creatinine 1.3 Creatine Kinase 77 Troponin I < 0.02 B-Natriuretic Peptide 127.7 H Signed out pending D Dimer
[2019-10-28 17:51] LABS: BASO % 0.5 % (0-2.0); EOS % 1.6 % (0-4.5); HEMATOCRIT 33.7 % (32.4-45.2); HEMOGLOBIN 11.3 GM/dL (10.7-15.3); LYMPH % 25.5 % (8-40); MCH 27.9 pg (25.7-33.7); MCHC 33.6 g/dl (32.0-36.0); MEAN CELL VOLUME 83.2 fl (80-96); MEAN PLT VOLUME 8.5 fl (7.5-11.1); MONO % 10.8 % (3.8-10.2); NEUT % 61.6 % (42.8-82.8); PLATELET COUNT 307 K/MM3 (134-434); RBC 4.06 M/mm3 (3.60-5.2); RDW 14.6 % (11.6-15.6); WHITE BLOOD COUNT 7.1 K/mm3 (4.0-10.0)
[2019-10-28 18:31] LABS: ALBUMIN 3.6 g/dl (3.4-5.0); ALK PHOS 110 U/L (45-117); ANION GAP 8 MMOL/L (8-16); BILIRUBIN,TOTAL 0.4 mg/dL (0.2-1); BLOOD UREA NITROGEN 37.1 mg/dL (7-18); CALCIUM 8.9 mg/dL (8.5-10.1); CHLORIDE 101 mmol/L (98-107); CO2 32 mmol/L (21-32); CREATININE 1.3 mg/dL (0.55-1.3); GLUCOSE,RANDOM 85 mg/dL (74-106); MAGNESIUM 2.3 mg/dL (1.8-2.4); N-TERMINAL BNP 127.7 pg/ml (5-125); PHOSPHOROUS 4.1 mg/dL (2.5-4.9); POTASSIUM 3.1 mmol/L (3.5-5.1); SGOT/AST 22 U/L (15-37); SGPT/ALT 31 U/L (13-61); SODIUM 141 mmol/L (136-145); TOT PROT 7.6 g/dl (6.4-8.2)
[2019-10-28 18:38] LABS: INR 1.04 (0.83-1.09); PROTHROMBIN TIME (PATIENT) 12.3 SEC (9.7-13.0)
[2019-10-28] MEDS ORDERED: POTASSIUM CHLORIDE TABS 20 MEQ TABLET.ER (FP) PO ONE ×2 (18:47→19:43)
[2019-10-28] MEDS ORDERED: LORazepam 0.5 MG TABLET PO ONE (20:27)
[2019-10-28] MEDS ORDERED: LORazepam 0.5 MG TABLET ONE ×2 (20:29→21:16)
[2019-10-28 20:34] LABS: EPI CELLS 1.8 /HPF (0-5/HPF); HYALINE CASTS 1 /lpf (0-8); PH,URINE 5.5 (5.0-8.0); URINE APPEARANCE CLEAR; URINE BILIRUBIN NEGATIVE (NEGATIVE); URINE COLOR YELLOW; URINE GLUCOSE (UA) NEGATIVE (NEGATIVE); URINE KETONE NEGATIVE (NEGATIVE); URINE LEUK ESTERASE NEGATIVE (NEGATIVE); URINE NITRITE NEGATIVE (NEGATIVE); URINE PROTEIN 1+ (NEGATIVE); URINE UROBILINOGEN 0.2 mg/dL (0.2-1.0); URINE WBC 8 /hpf (0-5)
[2019-10-28] MEDS ORDERED: LORazepam 1 MG TABLET PO ONE (21:03)
[2019-10-28 21:11] LABS: URINE RBC 0-3 /hpf (0-4)
[2019-10-28 22:39] LABS: MAGNESIUM 2.3 mg/dL (1.8-2.4); PHOSPHOROUS 3.5 mg/dL (2.5-4.9)
--- NOTE | 2019-10-29 02:06 | PN ---
Teaching Attending Note Name of Resident: Philipp Ignacio ATTENDING PHYSICIAN STATEMENT I saw and evaluated the patient. I reviewed the resident's note and discussed the case with the resident. I agree with the resident's findings and plan as documented. SUBJECTIVE: Patient is a 49 year old woman with a PMH of Obesity, JENNIFER, HTN, HLD, Asthma, Anemia, Glaucoma, and LLE abscess/cellulitis (d/c 08/01/19) who presents with 4 days lightheadedness, intermittent SOB/ALVARADO, and bilateral leg pain/heaviness/ swelling (R>L). She denies fever, chills, nausea, vomiting, dysuria, diarrhea, frequency or urgency. 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 No recent travels. Denies alcohol, tobacco or illicit drug use. OBJECTIVE: Alert Vital Signs Period Temp Pulse Resp BP Sys/Stark Pulse Ox Last 24 Hr 98 F-98.5 F 75-89 18-19 136-150/68-73 98-99 HEENT: No Jaundice, eye redness or discharge, PERRLA, EOMI. Normocephalic, atraumatic. External ears are normal and hearing is grossly intact. No nasal discharge. Neck: Supple, nontender. No palpable adenopathy or thyromegaly. No JVD Chest: Good effort. Clear to auscultation and percussion. Heart: Regular. No S3, rub or murmur Abdomen: Not distended, soft, nontender and no HSM. No rebound or guarding. Normal bowel sounds. Ext: Peripheral pulses intact. No leg edema. Tender over right popliteal fossa. Skin: Warm and dry. No petechiae, rash or ecchymosis. Neuro: Alert. Oriented x3. CN 2-12 grossly intact. Sensation grossly intact in all four extremities and DTR are symmetric. Psych: Appropriate mood and affect. Good insight. Home Medications Medication Instructions Recorded Amlodipine Besylate [Norvasc -] 10 mg PO DAILY #30 tablet 04/02/18 Furosemide [Lasix -] 20 mg PO DAILY #30 tab 04/02/18 Losartan Potassium 100 mg PO DAILY #30 tablet 04/02/18 Albuterol Sulfate Inhaler - 1 - 2 inh PO Q4H #1 inhaler 01/12/19 [Ventolin HFA Inhaler -] Hydralazine HCl 25 mg PO BID 01/12/19 Acetaminophen [Tylenol .Regular 650 mg PO Q4H tablet 07/25/19 Strength -] Pantoprazole Sodium [Protonix] 40 mg PO BID 07/29/19 Budesonide/Formeterol Fumarate 1 puff IH DAILY 08/24/19 [SYMBICORT 160/4.5mcg -] Abnormal Lab Results 10/28/19 10/28/19 10/28/19 16:45 16:45 17:00 Monocytes % 10.8 H D-Dimer Potassium 3.1 L BUN 37.1 H B-Natriuretic Peptide 127.7 H Urine Protein 1+ H 10/28/19 18:00 Monocytes % D-Dimer 721 H Potassium BUN B-Natriuretic Peptide Urine Protein ASSESSMENT AND PLAN: 1. Rule out Atypical ACS - EKG shows NSR with no significant ST-T wave changes and troponin is negative. No acute abnormality on CXR. No pulmonary embolism on chest CTA. Right leg doppler didnot show a DVT but a popliteal cyst. Hypokalemia likely partly due to lasix therapy. Will check serum Mg+ and give IV and PO KCL. Get ECHO, fasting lipids and consult cardiology and pulmonary. Refer to IR for popliteal cyst. Outpatient sleep studies. Will continue comprehensive care for all of patients comorbid conditions. 2. Obesity Counseled on the risks associated with obesity. Will provide patient all the necessary assistance, counseling and positive reinforcement to facilitate weight loss. Consult nicu rn. 3. Hypertension - Restart suitable outpatient antihypertensive drugs when clinically appropriate. Revise regimen to ensure [id number] excellent BP control and senior counsel patient on the injurious effects of uncontrolled hypertension. Nonpharmacologic measures to control hypertension like weight loss , salt restriction and exercise discussed. Importance of adherence to treatment regimen and attainment of normotension emphasized. 4. DVT prophylaxis - Lovenox 40 mg SQ q 24 hours. 5. Advance directives - Full code
[2019-10-29] MEDS ORDERED: ACETAMINOPHEN 325 MG TABLET (FP) PO PRN (02:56)
--- NOTE | 2019-10-29 05:39 | HP ---
CHIEF COMPLAINT: lightheadedness PCP: Dr Roosevelt Moreno HISTORY OF PRESENT ILLNESS: 49 year old woman with a PMH of Obesity, HTN, HLD, Asthma, Anemia, Glaucoma, and LLE abscess/cellulitis (d/c 08/01/19) who presents with 4 days lightheadedness, intermittent SOB/ALVARADO, and bilateral leg pain/heaviness/ swelling (R>L).She also endorsed hx of orthopnea. She denies chest pain, palpitations, LOC, fever, chills, nausea, vomiting, dysuria, diarrhea, frequency or urgency, calf tenderness or erythema. She has been in contact with her daughter and granddaughter who are recovering from a viral illness. No recent travels or immobilization. Denies alcohol, tobacco or illicit drug use. On further questioning, pt admits that she has been told that she snores, sometimes wakes up gasping for air, feel tired despite sleeping at times. Her daughter was recently worked up for JENNIFER, had similar complaints at some point. ER course was notable for: (1) VSS, CBC unremarkable, CMP hypokalemic at 3.1, D dimer 721 (2) trop neg x2, EKG shows NSR with no significant ST-T wave changes (3) TSH 0.59, BNP 127.7 -> 102. CXR and CTA neg and no neg of PE respectively Recent Travel: none PAST MEDICAL HISTORY: as above PAST SURGICAL HISTORY: superficial thrombectomy 2/2 injury Family hx: father with heart disease and from the cancer and heart complications Social History: Smoking: denies Alcohol:denies Drugs: denies Allergies codeine [Codeine] Allergy (Verified 10/28/19 14:05) ibuprofen [From Motrin] Allergy (Verified 10/28/19 14:05) HOME MEDICATIONS: Home Medications Medication Instructions Recorded Amlodipine Besylate [Norvasc -] 10 mg PO DAILY #30 tablet 04/02/18 Furosemide [Lasix -] 20 mg PO DAILY #30 tab 04/02/18 Losartan Potassium 100 mg PO DAILY #30 tablet 04/02/18 Albuterol Sulfate Inhaler - 1 - 2 inh PO Q4H #1 inhaler 01/12/19 [Ventolin HFA Inhaler -] Hydralazine HCl 25 mg PO BID 01/12/19 Acetaminophen [Tylenol .Regular 650 mg PO Q4H tablet 07/25/19 Strength -] Pantoprazole Sodium [Protonix] 40 mg PO BID 07/29/19 Budesonide/Formeterol Fumarate 1 puff IH DAILY 08/24/19 [SYMBICORT 160/4.5mcg -] REVIEW OF SYSTEMS CONSTITUTIONAL: generalized weakness, malaise Absent: fever, chills, diaphoresis, , loss of appetite, weight change HEENT: Absent: rhinorrhea, nasal congestion, throat pain, throat swelling, difficulty swallowing, mouth swelling, ear pain, eye pain, visual changes CARDIOVASCULAR: lightheadedness Absent: chest pain, syncope, palpitations, irregular heart rate, peripheral edema RESPIRATORY: shortness of breath, dyspnea with exertion, orthopnea Absent: cough, wheezing, stridor, hemoptysis GASTROINTESTINAL: Absent: abdominal pain, abdominal distension, nausea, vomiting, diarrhea, constipation, melena, hematochezia GENITOURINARY: Absent: dysuria, frequency, urgency, hesitancy, hematuria, flank pain, genital pain MUSCULOSKELETAL: Absent: myalgia, arthralgia, joint swelling, back pain, neck pain SKIN: Absent: rash, itching, pallor HEMATOLOGIC/IMMUNOLOGIC: Absent: easy bleeding, easy bruising, lymphadenopathy, frequent infections ENDOCRINE: Absent: unexplained weight gain, unexplained weight loss, heat intolerance, cold intolerance NEUROLOGIC: Absent: headache, focal weakness or paresthesias, dizziness, unsteady gait, seizure, mental status changes, bladder or bowel incontinence PSYCHIATRIC: Absent: anxiety, depression, suicidal or homicidal ideation, hallucinations. PHYSICAL EXAMINATION Vital Signs - 24 hr 10/28/19 10/28/19 10/28/19 14:02 15:51 21:38 Temperature 98 F 98.5 F Pulse Rate 75 Pulse Rate [ 89 Left Radial] Respiratory 18 19 Rate Blood Pressure 150/73 Blood Pressure 136/68 [Right Arm] O2 Sat by Pulse 98 99 99 Oximetry (%) GENERAL: Awake, alert, and fully oriented, tired appearing in no acute distress. HEAD: Normal with no signs of trauma. EYES: Pupils equal, round and reactive to light, extraocular movements intact, sclera anicteric, conjunctiva clear. No lid lag. EARS, NOSE, THROAT: oropharynx clear without exudates. Moist mucous membranes. NECK: Normal range of motion, supple without lymphadenopathy, JVD, or masses. LUNGS: Breath sounds equal, clear to auscultation bilaterally. No wheezes, and no crackles. No accessory muscle use. HEART: Regular rate and rhythm, normal S1 and S2 without murmur, rub or gallop. ABDOMEN: Soft, nontender, not distended, normoactive bowel sounds, no guarding, no rebound, no masses. No hepatomegaly or splenomegaly. MUSCULOSKELETAL: Normal range of motion at all joints. No bony deformities or tenderness. No CVA tenderness. UPPER EXTREMITIES: 2+ pulses, warm, well-perfused. No cyanosis. No clubbing. No peripheral edema. LOWER EXTREMITIES: 2+ pulses, warm, well-perfused. No calf tenderness. No peripheral edema. PSYCHIATRIC: Cooperative. Good eye contact. Appropriate mood and affect. SKIN: Warm, dry, normal turgor, no rashes or lesions noted, normal capillary refill. Laboratory Results - last 24 hr 10/28/19 10/28/19 10/28/19 16:45 16:45 17:00 WBC 7.1 RBC 4.06 Hgb 11.3 Hct 33.7 MCV 83.2 MCH 27.9 MCHC 33.6 RDW 14.6 Plt Count 307 MPV 8.5 Absolute Neuts (auto) 4.4 Neutrophils % 61.6 Lymphocytes % 25.5 Monocytes % 10.8 H Eosinophils % 1.6 Basophils % 0.5 Nucleated RBC % 0 PT with INR INR D-Dimer Sodium 141 Potassium 3.1 L Chloride 101 Carbon Dioxide 32 Anion Gap 8 BUN 37.1 H Creatinine 1.3 Est GFR (CKD-EPI)AfAm 55.01 Est GFR (CKD-EPI)NonAf 47.46 Random Glucose 85 Calcium 8.9 Phosphorus 4.1 Magnesium 2.3 Total Bilirubin 0.4 AST 22 ALT 31 Alkaline Phosphatase 110 Creatine Kinase 77 Troponin I < 0.02 B-Natriuretic Peptide 127.7 H Total Protein 7.6 Albumin 3.6 TSH Urine Color Urine Appearance Urine pH Ur Specific [place] Urine Protein Urine Glucose (UA) Urine Ketones Urine Blood Urine Nitrite Urine Bilirubin Urine Urobilinogen Ur Leukocyte Esterase Urine WBC (Auto) Urine RBC (Auto) Urine Casts (Auto) U Epithel Cells (Auto) Urine Bacteria (Auto) Urine HCG, Qual Negative 10/28/19 10/28/19 10/28/19 17:00 18:00 18:00 WBC RBC Hgb Hct MCV MCH MCHC RDW Plt Count MPV Absolute Neuts (auto) Neutrophils % Lymphocytes % Monocytes % Eosinophils % Basophils % Nucleated RBC % PT with INR 12.30 INR 1.04 D-Dimer 721 H Sodium Potassium Chloride Carbon Dioxide Anion Gap BUN Creatinine Est GFR (CKD-EPI)AfAm Est GFR (CKD-EPI)NonAf Random Glucose Calcium Phosphorus Magnesium Total Bilirubin AST ALT Alkaline Phosphatase Creatine Kinase Troponin I B-Natriuretic Peptide Total Protein Albumin TSH Urine Color Yellow Urine Appearance Clear Urine pH 5.5 Ur Specific [place] 1.017 Urine Protein 1+ H Urine Glucose (UA) Negative Urine Ketones Negative Urine Blood Negative Urine Nitrite Negative Urine Bilirubin Negative Urine Urobilinogen 0.2 Ur Leukocyte Esterase Negative Urine WBC (Auto) 8 Urine RBC (Auto) 0-3 Urine Casts (Auto) 1 U Epithel Cells (Auto) 1.8 Urine Bacteria (Auto) 41.0 Urine HCG, Qual 10/28/19 10/28/19 22:05 22:05 WBC RBC Hgb Hct MCV MCH MCHC RDW Plt Count MPV Absolute Neuts (auto) Neutrophils % Lymphocytes % Monocytes % Eosinophils % Basophils % Nucleated RBC % PT with INR INR D-Dimer Sodium Potassium Chloride Carbon Dioxide Anion Gap BUN Creatinine Est GFR (CKD-EPI)AfAm Est GFR (CKD-EPI)NonAf Random Glucose Calcium Phosphorus 3.5 Magnesium 2.3 Total Bilirubin AST ALT Alkaline Phosphatase Creatine Kinase Troponin I < 0.02 B-Natriuretic Peptide 102.0 Total Protein Albumin TSH 0.59 Urine Color Urine Appearance Urine pH Ur Specific [place] Urine Protein Urine Glucose (UA) Urine Ketones Urine Blood Urine Nitrite Urine Bilirubin Urine Urobilinogen Ur Leukocyte Esterase Urine WBC (Auto) Urine RBC (Auto) Urine Casts (Auto) U Epithel Cells (Auto) Urine Bacteria (Auto) Urine HCG, Qual ASSESSMENT/PLAN: 49 year old woman with a PMH of Obesity, HTN, HLD, Asthma, Anemia, Glaucoma, and LLE abscess/cellulitis (d/c 08/01/19) who presents with 4 days lightheadedness, intermittent SOB/ALVARADO, and bilateral leg pain/heaviness/ swelling (R>L). Admitted to r/o atypical ACS Rule out Atypical ACS EKG shows NSR with no significant ST-T wave changes trops neg x2 No chest pain CXR with no acute pathology RF for ACS present with HTN, HLD, female and obesity 3/4th ruled out ACS... still need Echo for cardiac function assessment Cardio Dr Miller consulted lipid panel SOB, fatigue, Leg swelling and pain r/o DVT and PE d dimer 721 duplex US neg for DVT but positive for popliteal cyst chest CTA neg for pulmonary embolism Hypokalemia poss due to medication ( lasix) repleted in ED with 20 PO. giving Krun x2 bag pending repeat morning CMP ?JENNIFER in the setting of generalized fatigue, snoring, and apneic episode during sleep obtain sleep screen Dr Haja Retana consulted outpatient sleep study if Pulm deem necassary Popliteal Cyst tylenol IR for drainage? DVT lovenox daily Admit to tele Visit type - Emergency Visit Emergency Visit: Yes ED Registration Date: 10/29/19 Care time: The patient presented to the Emergency Department on the above date and was hospitalized for further evaluation of their emergent condition. - New Patient This patient is new to me today: Yes Date on this admission: 10/29/19 - Critical Care Critical Care patient: No ATTENDING PHYSICIAN STATEMENT I saw and evaluated the patient. I reviewed the resident's note and discussed the case with the resident. I agree with the resident's findings and plan as documented. SUBJECTIVE: OBJECTIVE: ASSESSMENT AND PLAN:
[2019-10-29 05:45] VITALS: BMI 32.4
[2019-10-29 07:00] LABS: BASO % 0.6 % (0-2.0); EOS % 1.9 % (0-4.5); HEMATOCRIT 31.7 % (32.4-45.2); HEMOGLOBIN 10.7 GM/dL (10.7-15.3); LYMPH % 28.7 % (8-40); MCH 27.8 pg (25.7-33.7); MCHC 33.6 g/dl (32.0-36.0); MEAN CELL VOLUME 82.8 fl (80-96); MEAN PLT VOLUME 8.4 fl (7.5-11.1); MONO % 12.1 % (3.8-10.2); NEUT % 56.7 % (42.8-82.8); PLATELET COUNT 261 K/MM3 (134-434); RBC 3.84 M/mm3 (3.60-5.2); RDW 14.4 % (11.6-15.6); WHITE BLOOD COUNT 5.1 K/mm3 (4.0-10.0)
[2019-10-29] MEDS: KCL 10 MEQ IVPB 10 MEQ/100 ML INFUS.BAG IVPB SCH ×2 (07:03→09:42)
[2019-10-29 07:49] LABS: ALBUMIN 3.3 g/dl (3.4-5.0); BILIRUBIN,TOTAL 0.5 mg/dL (0.2-1); BLOOD UREA NITROGEN 28.8 mg/dL (7-18); CALCIUM 8.3 mg/dL (8.5-10.1); CREATININE 1.1 mg/dL (0.55-1.3); MAGNESIUM 2.1 mg/dL (1.8-2.4); PHOSPHOROUS 3.7 mg/dL (2.5-4.9); TOT PROT 6.7 g/dl (6.4-8.2)
[2019-10-29 07:58] LABS: POTASSIUM 2.7 mmol/L (3.5-5.1)
[2019-10-29] MEDS ORDERED: ENOXAPARIN NA (PORCINE) 40 MG/0.4 ML DISP.SYRIN SQ SCH (10:00)
--- NOTE | 2019-10-29 10:11 | CON.CARD ---
Consult Consult Specialty:: Cardiology Referred by:: Dr. Taylor Reason for Consultation:: SOB - History of Present Illness Chief Complaint: SOB and dizziness History of Present Illness: 49F with HTN, asthma, GERD, hx LE trauma requiring surgery in Jul 2019 present here for evaluation for acute onset SOB with dizziness. Elevated D-dimer. CTA chest negative for pulmonary embolism or aortic path. [place] different than her asthma. Usually very active, no CV sx. ECG without acute ischemic changes TnI negative x 2 TELE: NSR - History Source History Provided By: Patient Limitations to Obtaining History: No Limitations - Past Medical History Cardio/Vascular: Yes: HTN, Hyperlipdemia, Murmur Pulmonary: Yes: Asthma Gastrointestinal: Yes: GERD Hepatobiliary: No: Cirrhosis, Cholelithiasis, Cholecystitis, Choledocholithiasis , Hepatitis A, Hepatitis B, Hepatitis C, Other Renal/: No: Renal Failure, Renal Inusuff, BPH, Cancer, Hematuria, Hemodialysis , Neurogenic Bladder, Renal Calculi, UTI, Other ...LMP: 12/26/12 Heme/Onc: No: Anemia, B12 Deficiency, Bleeding Disorder, Cancer, Current Chemotherapy, Current Radiation Therapy, Hemochromatosis, Hypercoaguable State, Myeloproliferative Synd, Sickle Cell Disease, Sickle Cell Trait, Thrombocytopenia, Other Infectious Disease: No: AIDS, C-Diff, Herpes Zoster, HIV, MRSA, STD's, Tuberculosis, VREF, Other Psych: No: Addictions, Anxiety, Bipolar, Depression, Panic, Psychosis, Schizophrenia, Other Musculoskeletal: No: Bursitis, Chronic low back pain, Hemiparesis, Hemiplegia, Osteoarthritis, Paraplegia, Other ENT: Yes: Allergic Rhinitis - Past Surgical History Past Surgical History: Yes: Additional Surgical History: trauma to LE requiring surgical procedure in July with "blood clot removed" denies anticoagulation. 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 History of Recent Travel: No Home Medications - Allergies Allergies/Adverse Reactions: Allergies Allergy/AdvReac Type Severity Reaction Status Date / Time codeine [Codeine] Allergy Verified 10/28/19 14:05 ibuprofen [From Motrin] Allergy Verified 10/28/19 14:05 - Home Medications Home Medications: Ambulatory Orders Amlodipine Besylate [Norvasc -] 10 mg PO DAILY #30 tablet 04/02/18 Losartan Potassium 100 mg PO DAILY #30 tablet 04/02/18 Albuterol Sulfate Inhaler - [Ventolin HFA Inhaler -] 1 - 2 inh PO Q4H #1 inhaler 01/12/19 Hydralazine HCl 25 mg PO BID 01/12/19 Acetaminophen [Tylenol .Regular Strength -] 650 mg PO Q4H tablet 07/25/19 Pantoprazole Sodium [Protonix] 40 mg PO BID 07/29/19 Budesonide/Formeterol Fumarate [SYMBICORT 160/4.5mcg -] 1 puff IH DAILY Chlorthalidone 25 mg PO DAILY 10/29/19 Family Medical History Family History: Unremarkable Review of Systems Findings/Remarks: see HPI - Review of Systems Constitutional: reports: No Symptoms Eyes: reports: No Symptoms HENT: reports: No Symptoms Neck: reports: No Symptoms Cardiovascular: reports: No Symptoms Respiratory: reports: Exercise Intolerance, SOB Gastrointestinal: reports: No Symptoms Genitourinary: reports: No Symptoms Breasts: reports: No Symptoms Reported Musculoskeletal: reports: No Symptoms Integumentary: reports: No Symptoms Neurological: reports: Other (dizziness). denies: No Symptoms, Change in LOC, Change in Speech, Confusion, Dizziness, Headache, Incoordination, Numbness, Parasthesia, Pre-Existing Deficit, Seizure, Syncope, Tremors, Unsteady Gait, Weakness Endocrine: denies: No Symptoms, Excessive Sweating, Flushing, Increased Hunger, Increased Thirst, Intolerance to Cold, Intolerance to Heat, Unexplained Weight Gain, Unexplained Weight Loss, Other Hematology/Lymphatic: denies: No Symptoms, Easily Bruised, Excessive Bleeding, Swollen Glands, Other - Risk Factors Known Risk Factors: Yes: Hypertension Vital Signs: Vital Signs Temperature 98.1 F 10/29/19 05:27 Pulse Rate 60 10/29/19 05:27 Respiratory Rate 20 10/29/19 05:27 Blood Pressure 133/99 10/29/19 05:27 O2 Sat by Pulse Oximetry (%) 99 10/29/19 05:27 Constitutional: Yes: No Distress, Calm Eyes: Yes: Conjunctiva Clear Respiratory: Yes: CTA Bilaterally Gastrointestinal: Yes: Soft (NT) Cardiovascular: Yes: Regular Rate and Rhythm JVD: No Carotid Bruit: No Heart Sounds: Yes: S1, S2 Edema: No Neurological: Yes: Alert, Oriented ...Motor Strength: WNL - Other Data Labs, Other Data: CBC, BMP 10/29/19 05:50 10/29/19 05:50 INR, PTT INR 1.04 (0.83-1.09) 10/28/19 18:00 Troponin, BNP 10/28/19 10/28/19 16:45 22:05 Troponin I < 0.02 < 0.02 B-Natriuretic Peptide 127.7 H 102.0 Troponin, BNP 10/28/19 10/28/19 16:45 22:05 Troponin I < 0.02 < 0.02 B-Natriuretic Peptide 127.7 H 102.0 Laboratory Tests 10/28/19 10/28/19 10/28/19 16:45 18:00 22:05 WBC Hgb Plt Count D-Dimer 721 H Sodium Potassium Creatinine Troponin I < 0.02 B-Natriuretic Peptide 127.7 H Total LDL Cholesterol TSH 0.59 10/28/19 10/29/19 10/29/19 22:05 05:50 05:50 WBC 5.1 Hgb 10.7 Plt Count 261 D-Dimer Sodium 139 Potassium 2.7 L* Creatinine 1.1 Troponin I < 0.02 B-Natriuretic Peptide Total LDL Cholesterol 145 H TSH NSR, 63bpm, Poor R wave progression Imaging - Results Chest X-ray: Image Reviewed EKG: Image Reviewed Assessment/Plan IMP: Chronic HTN Hypokalemia Dyspnea on exertion Dizziness REC: 1. CTA negative for PE; elevated D-dimer nonspecific- defer to primary medical team re further evaluation. 2. Replete K+, consider d/c Chlorthalidone if prone to sig hypokalemia 3. Tele thus far negative, with no arrhythmia to explain dizziness or SOB, would continue until K+ repleted. May benefit from extended outpatient monitor to r/o arrhythmia. 4. Agree with echo to assess EF and r/o PHTN as CT does indicate mild dilatation of PA, possible chronic PHTN. 5. Stress test when K+ normalized, if 3rd enzyme negative can be done as outpatient. Will follow Please call if any questions/concerns.
[2019-10-29] MEDS ORDERED: POTASSIUM CHLORIDE TABS 20 MEQ TABLET.ER (FP) PO ONE ×2 (11:23→17:39)
--- NOTE | 2019-10-29 12:55 | PN ---
Progress Note (short form) - Note Progress Note: PULMONARY CONSULTATION DICTATED 10/29/19 IMP
--- NOTE | 2019-10-29 13:10 | ECHO ---
Name: VIJAY BOLAÑOS Exam:Adult Echocardiogram Study Date: 10/29/2019 12:28 PM Age: 49 yrs Height: 63 in Weight: 200 lb BSA: 1.9 m2 MMode/2D Measurements & Calculations IVSd: 1.1 cm Ao root diam: 2.3 cm LVIDd: 3.2 cm LA dimension: 3.3 cm LVIDs: 2.1 cm ACS: 1.7 cm LVPWd: 1.3 cm EDV(Teich): 39.7 ml LVOT diam: 1.7 cm ESV(Teich): 15.3 ml RV S Low: 16.6 cm/sec Doppler Measurements & Calculations MV E max low: 77.1 cm/sec Ao V2 max: 143.6 cm/sec MV A max low: 102.4 cm/sec Ao max P.2 mmHg MV E/A: 0.75 Ao V2 mean: 108.5 cm/sec MV dec time: 0.27 sec Ao mean P.0 mmHg Ao V2 VTI: 34.4 cm MORA(I,D): 1.6 cm2 MORA(V,D): 1.5 cm2 LV V1 max P.5 mmHg MR max low: 226.8 cm/sec LV V1 mean P.3 mmHg MR max P.6 mmHg LV V1 max: 93.2 cm/sec LV V1 mean: 72.9 cm/sec LV V1 VTI: 23.4 cm SV(LVOT): 55.6 ml TR max low: 200.2 cm/sec TR max P.3 mmHg PA V2 max: 88.2 cm/sec Med Peak E' Low: 6.8 cm/sec PA max P.1 mmHg Med E/e': 11.3 Lat Peak E' Low: 8.7 cm/sec Lat E/e': 8.9 Left Ventricle There is borderline concentric left ventricular hypertrophy. Left ventricular systolic function is no rmal. Ejection Fraction = 55-60%. The transmitral spectral Doppler flow pattern is suggestive of impaired L V relaxation. Right Ventricle The right ventricle is normal in size and function. Atria Normal left and right atrial size and function. Mitral Valve The mitral valve is normal in structure and function. There is no mitral valve stenosis. There is no mitral regurgitation noted. Tricuspid Valve The tricuspid valve is normal in structure and function. There is mild tricuspid regurgitation. Right ventricular systolic pressure is normal. Aortic Valve Moderate focal calcification on the aortic valve. No hemodynamically significant valvular aortic sten osis. No aortic regurgitation is present. Pulmonic Valve The pulmonic valve is not well seen, but is grossly normal. There is no pulmonic valvular stenosis. T here is no pulmonic valvular regurgitation. Great Vessels The aortic root is normal size. Pericardium/Pleura There is no pericardial effusion. Interpretation Summary Left ventricular systolic function is normal. Ejection Fraction = 55-60%. The transmitral spectral Doppler flow pattern is suggestive of impaired LV relaxation. The right ventricle is normal in size and function. There is mild tricuspid regurgitation. Moderate focal calcification on the aortic valve. There is no pericardial effusion. MD Ogden *Lane 10/29/2019 01:10 PM
--- NOTE | 2019-10-29 13:18 | PN ---
Progress Note (short form) - Note Progress Note: PULMONARY CONSULTATION DICTATED 10/29/19 IMP DYSPNEA ASTHMA ? PULMONARY HTN GERD HTN HLD SUSPECTED JENNIFER TATUM ELECTROLYTE IMBALANCE ANEMIA PLAN INHALED BBRONCHODILATORS O2 NEEDED SLEEP SCREEN ECHO REPLETE LYTES MONITOR LYTES,RENAL FUNCTION MONITOR H+H PFTS OUTPATIENT DR IYER Problem List - Problems (1) Electrolyte imbalance Code(s): E87.8 - OTH DISORDERS OF ELECTROLYTE AND FLUID BALANCE, NEC (2) Dizziness Code(s): R42 - DIZZINESS AND GIDDINESS (3) Dyspnea on exertion Code(s): R06.09 - OTHER FORMS OF DYSPNEA (4) Headache Code(s): R51 - HEADACHE Qualifiers: Headache type: unspecified Headache chronicity pattern: episodic headache Intractability: not intractable Qualified Code(s): R51 - Headache (5) Shortness of breath Code(s): R06.02 - SHORTNESS OF BREATH (6) Asthma Code(s): J45.909 - UNSPECIFIED ASTHMA, UNCOMPLICATED Qualifiers: Asthma severity: mild Asthma persistence: intermittent Asthma complication type: uncomplicated Qualified Code(s): J45.20 - Mild intermittent asthma, uncomplicated (7) GERD (gastroesophageal reflux disease) Code(s): K21.9 - GASTRO-ESOPHAGEAL REFLUX DISEASE WITHOUT ESOPHAGITIS Qualifiers: Esophagitis presence: without esophagitis Qualified Code(s): K21.9 - Gastro -esophageal reflux disease without esophagitis (8) Hypertension Code(s): I10 - ESSENTIAL (PRIMARY) HYPERTENSION Qualifiers: Hypertension type: essential hypertension (9) Obesity (BMI 30-39.9) Code(s): E66.9 - OBESITY, UNSPECIFIED
--- NOTE | 2019-10-29 14:07 | EKG ---
Test Reason : Blood Pressure : / mmHG Vent. Rate : 063 BPM Atrial Rate : 063 BPM P-R Int : 174 ms QRS Dur : 088 ms QT Int : 444 ms P-R-T Axes : -06 024 026 degrees QTc Int : 454 ms NORMAL SINUS RHYTHM CANNOT RULE OUT ANTERIOR INFARCT , AGE UNDETERMINED ABNORMAL ECG WHEN COMPARED WITH ECG OF 29-JUL-2019 01:13, NO SIGNIFICANT CHANGE WAS FOUND Confirmed by MARIE PALMER MD ([id number]) on 10/29/2019 2:07:20 PM Referred By: Confirmed By:MARIE PALMER MD
[2019-10-29] MEDS ORDERED: LOSARTAN POTASSIUM 50 MG TABLET (FP) PO SCH (14:08)
[2019-10-29] MEDS ORDERED: amLODIPine BESYLATE 10 MG TABLET (FP) PO SCH (14:15)
[2019-10-29] MEDS ORDERED: BUDESONIDE/FORMETEROL FUMARATE 160/4.5 mcg INHALER IH SCH ×2 (14:15→14:17)
[2019-10-29] MEDS: FAMOTIDINE 40 MG TABLET PO SCH ×2 (14:30→18:35)
--- NOTE | 2019-10-29 15:23 | PN ---
Teaching Attending Note Name of Resident: Sobeida Mcfarland ATTENDING PHYSICIAN STATEMENT I saw and evaluated the patient. I reviewed the resident's note and discussed the case with the resident. I agree with the resident's findings and plan as documented. SUBJECTIVE: No fever or chills. 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 she suported her self and sx resolved a short period of time. no cp or palpitations. chlorthalidone was added to her meds no fever . no ALVARADO. no exertional CP now she is asymptomatic OBJECTIVE: NAD Cv: RRR. 2/6 Sm at LUSB Lungs: CTAB Ext : no edema or erythema neuro: EOMI, round equal pupils reactive to light . no facail droop, tongue and uvula at mid line . Sensation to light touch is intact . strength 5/5 in upper and lower extremities proximally and distally. reflexes 2+ biceps, BR, and Knee jerks ASSESSMENT AND PLAN: 49 y/o lady wit h/o JENNIFER, HTN, HLD, Asthma, Anemia, Glaucoma who presented with transient episode of SOB and light headedness 1- Near syncope: DDX arrhythmias, orthostatic hypotension , and vasovagal - check orthostatic VS - tele - echo reviewed. - for us she reproted SOB only during the event. for night team reported SOB x 4 days . will check flu swab. no signs of active acute asthma. - out pt stress test 2- HTN: cont Norvasc, losartan and HZN. hold chlorothalidone for now - will advise patient not to take it due to the severe hypokalemia. and check her BP daily. and reprot to her PCP in 2-3 days . 3- Severe hypokalemia: was replaced . will repeat level 4- JENNIFER and asthma : out patient sleep study and PFTS possible dc later today if no events on tele, orthostatics are neg and if K corrects
[2019-10-29] MEDS ORDERED: ALBUTEROL SO4 8 GM HFA INHALER IH PRN (15:28)
--- NOTE | 2019-10-29 15:49 | PN ---
Physical Exam: SUBJECTIVE: Patient seen and examined. She denies current dizziness, shortness of breath, or chest pain. OBJECTIVE: Vital Signs Period Temp Pulse Resp BP Sys/Stark Pulse Ox Last 24 Hr 98.1 F-98.5 F 60-89 19-20 133-136/68-99 99-99 GENERAL: The patient is awake, alert, and fully oriented, in no acute distress. HEAD: Normal with no signs of trauma. EYES: PERRL, extraocular movements intact, conjunctiva clear. ENT: Ears normal, nares patent, moist mucous membranes. NECK: Trachea midline, full range of motion LUNGS: Clear to auscultation bilaterally, no wheezes HEART: Regular rate and rhythm, S1, S2 without murmur ABDOMEN: Soft, nontender, nondistended, normoactive bowel sounds EXTREMITIES: Warm, well-perfused, no edema. NEUROLOGICAL: Cranial nerves II through XII grossly intact. Normal speech. Strength grossly intact in all extremities. PSYCH: Normal mood, normal affect. SKIN: Warm, dry, normal turgor tele: no recorded events, NSR Laboratory Results - last 24 hr 10/28/19 10/28/19 10/28/19 16:45 16:45 17:00 WBC 7.1 RBC 4.06 Hgb 11.3 Hct 33.7 MCV 83.2 MCH 27.9 MCHC 33.6 RDW 14.6 Plt Count 307 MPV 8.5 Absolute Neuts (auto) 4.4 Neutrophils % 61.6 Lymphocytes % 25.5 Monocytes % 10.8 H Eosinophils % 1.6 Basophils % 0.5 Nucleated RBC % 0 PT with INR INR D-Dimer Sodium 141 Potassium 3.1 L Chloride 101 Carbon Dioxide 32 Anion Gap 8 BUN 37.1 H Creatinine 1.3 Est GFR (CKD-EPI)AfAm 55.01 Est GFR (CKD-EPI)NonAf 47.46 Random Glucose 85 Calcium 8.9 Phosphorus 4.1 Magnesium 2.3 Total Bilirubin 0.4 AST 22 ALT 31 Alkaline Phosphatase 110 Creatine Kinase 77 Troponin I < 0.02 B-Natriuretic Peptide 127.7 H Total Protein 7.6 Albumin 3.6 Triglycerides Cholesterol Total LDL Cholesterol HDL Cholesterol TSH Urine Color Urine Appearance Urine pH Ur Specific [place] Urine Protein Urine Glucose (UA) Urine Ketones Urine Blood Urine Nitrite Urine Bilirubin Urine Urobilinogen Ur Leukocyte Esterase Urine WBC (Auto) Urine RBC (Auto) Urine Casts (Auto) U Epithel Cells (Auto) Urine Bacteria (Auto) Urine HCG, Qual Negative 10/28/19 10/28/19 10/28/19 17:00 18:00 18:00 WBC RBC Hgb Hct MCV MCH MCHC RDW Plt Count MPV Absolute Neuts (auto) Neutrophils % Lymphocytes % Monocytes % Eosinophils % Basophils % Nucleated RBC % PT with INR 12.30 INR 1.04 D-Dimer 721 H Sodium Potassium Chloride Carbon Dioxide Anion Gap BUN Creatinine Est GFR (CKD-EPI)AfAm Est GFR (CKD-EPI)NonAf Random Glucose Calcium Phosphorus Magnesium Total Bilirubin AST ALT Alkaline Phosphatase Creatine Kinase Troponin I B-Natriuretic Peptide Total Protein Albumin Triglycerides Cholesterol Total LDL Cholesterol HDL Cholesterol TSH Urine Color Yellow Urine Appearance Clear Urine pH 5.5 Ur Specific [place] 1.017 Urine Protein 1+ H Urine Glucose (UA) Negative Urine Ketones Negative Urine Blood Negative Urine Nitrite Negative Urine Bilirubin Negative Urine Urobilinogen 0.2 Ur Leukocyte Esterase Negative Urine WBC (Auto) 8 Urine RBC (Auto) 0-3 Urine Casts (Auto) 1 U Epithel Cells (Auto) 1.8 Urine Bacteria (Auto) 41.0 Urine HCG, Qual 10/28/19 10/28/19 10/29/19 22:05 22:05 05:50 WBC 5.1 RBC 3.84 Hgb 10.7 Hct 31.7 L MCV 82.8 MCH 27.8 MCHC 33.6 RDW 14.4 Plt Count 261 MPV 8.4 Absolute Neuts (auto) 2.9 Neutrophils % 56.7 Lymphocytes % 28.7 Monocytes % 12.1 H Eosinophils % 1.9 Basophils % 0.6 Nucleated RBC % 0 PT with INR INR D-Dimer Sodium Potassium Chloride Carbon Dioxide Anion Gap BUN Creatinine Est GFR (CKD-EPI)AfAm Est GFR (CKD-EPI)NonAf Random Glucose Calcium Phosphorus 3.5 Magnesium 2.3 Total Bilirubin AST ALT Alkaline Phosphatase Creatine Kinase Troponin I < 0.02 B-Natriuretic Peptide 102.0 Total Protein Albumin Triglycerides Cholesterol Total LDL Cholesterol HDL Cholesterol TSH 0.59 Urine Color Urine Appearance Urine pH Ur Specific [place] Urine Protein Urine Glucose (UA) Urine Ketones Urine Blood Urine Nitrite Urine Bilirubin Urine Urobilinogen Ur Leukocyte Esterase Urine WBC (Auto) Urine RBC (Auto) Urine Casts (Auto) U Epithel Cells (Auto) Urine Bacteria (Auto) Urine HCG, Qual 10/29/19 05:50 WBC RBC Hgb Hct MCV MCH MCHC RDW Plt Count MPV Absolute Neuts (auto) Neutrophils % Lymphocytes % Monocytes % Eosinophils % Basophils % Nucleated RBC % PT with INR INR D-Dimer Sodium 139 Potassium 2.7 L* Chloride 101 Carbon Dioxide 31 Anion Gap 8 BUN 28.8 H Creatinine 1.1 Est GFR (CKD-EPI)AfAm 67.32 Est GFR (CKD-EPI)NonAf 58.08 Random Glucose 86 Calcium 8.3 L Phosphorus 3.7 Magnesium 2.1 Total Bilirubin 0.5 AST 20 ALT 29 Alkaline Phosphatase 102 Creatine Kinase Troponin I B-Natriuretic Peptide Total Protein 6.7 Albumin 3.3 L Triglycerides 108 Cholesterol 224 H Total LDL Cholesterol 145 H HDL Cholesterol 56 TSH Urine Color Urine Appearance Urine pH Ur Specific [place] Urine Protein Urine Glucose (UA) Urine Ketones Urine Blood Urine Nitrite Urine Bilirubin Urine Urobilinogen Ur Leukocyte Esterase Urine WBC (Auto) Urine RBC (Auto) Urine Casts (Auto) U Epithel Cells (Auto) Urine Bacteria (Auto) Urine HCG, Qual Active Medications Generic Name Dose Route Start Last Admin Trade Name Freq PRN Reason Stop Dose Admin Acetaminophen 650 mg 10/29/19 02:56 Tylenol - PO Q4H PRN PAIN LEVEL 6-10 Amlodipine Besylate 10 mg 10/29/19 14:15 10/29/19 14:29 Norvasc - PO Not Given DAILY [facility] Budesonide/Formoterol Fumarate 2 puff 10/29/19 14:17 Symbicort 160/4.5mcg - IH BID [facility] Enoxaparin Sodium 40 mg 10/29/19 10:00 10/29/19 09:42 Lovenox - SQ 40 mg DAILY [facility] Administration Famotidine 40 mg 10/29/19 14:15 Pepcid - PO DAILY [facility] Hydralazine HCl 25 mg 10/29/19 22:00 Apresoline - PO BID [facility] Losartan Potassium 100 mg 10/29/19 14:08 10/29/19 14:30 Cozaar - PO 100 mg DAILY [facility] Administration ASSESSMENT/PLAN: Ms. King is a 49y/o female with obesity, HTN, HLD, GERD, asthma, anemia, and glaucoma who presents with lightheadedness and shortness of breath that lasted several minutes. She did not lose consciousness nor has she had a previous episode. #lightheadedness/shortness of breath vasovagal pre-syncope vs orthostatic hypotension vs PE vs ACS -orthostatic negative -trop negative x2 -EKG shows no ST changes -echo- EF 55-60%, possible impaired LV relaxation, mild TR, aortic valve calcification -CTA negative for PE -U/S negative for DVTs -[place] risk- 1.8% 10 year risk MD or -cards following -pulm consulted -flu swab -albuterol Q4H PRN -Spiriva 2 puffs BID -amlodipine 10mg daily -hydralazine 25mg BID with parameters -losartan 100mg with parameters -hold chlorthalidone until K improves, consider dc'ing if continues to be hypokalemic #hypokalemia -seen on previous admissions, is on diuretics -replete -repeat BMP -tele monitoring until resolved #proteinuria -+1 protein, UA otherwise unremarkable -urine protein to Cr ratio #GERD famotidine DVT Ppx Lovenox FEN PO fluids monitor K sodium-controlled diet dispo tele until K normalizes ATTENDING PHYSICIAN STATEMENT I saw and evaluated the patient. I reviewed the resident's note and discussed the case with the resident. I agree with the resident's findings and plan as documented. SUBJECTIVE: OBJECTIVE: ASSESSMENT AND PLAN:
[2019-10-29 16:19] LABS: BLOOD UREA NITROGEN 28.6 mg/dL (7-18); CALCIUM 8.7 mg/dL (8.5-10.1); CREATININE 1.2 mg/dL (0.55-1.3); POTASSIUM 3.2 mmol/L (3.5-5.1)
--- NOTE | 2019-10-29 18:18 | DS ---
Physical Exam: SUBJECTIVE: Patient seen and examined. She denies current dizziness, shortness of breath, or chest pain. OBJECTIVE: Vital Signs Period Temp Pulse Resp BP Sys/Stark Pulse Ox Last 24 Hr 98.1 F-98.5 F 60-89 19-20 133-144/68-99 99-99 PHYSICAL EXAM GENERAL: The patient is awake, alert, and fully oriented, in no acute distress. HEAD: Normal with no signs of trauma. EYES: PERRL, extraocular movements intact, conjunctiva clear. ENT: Ears normal, nares patent, moist mucous membranes. NECK: Trachea midline, full range of motion LUNGS: Clear to auscultation bilaterally, no wheezes HEART: Regular rate and rhythm, S1, S2 without murmur ABDOMEN: Soft, nontender, nondistended, normoactive bowel sounds EXTREMITIES: Warm, well-perfused, no edema. NEUROLOGICAL: Cranial nerves II through XII grossly intact. Normal speech. Strength grossly intact in all extremities. PSYCH: Normal mood, normal affect. SKIN: Warm, dry, normal turgor tele: no recorded events, NSR LABS Laboratory Results - last 24 hr 10/28/19 10/28/19 10/28/19 16:45 17:00 18:00 WBC RBC Hgb Hct MCV MCH MCHC RDW Plt Count MPV Absolute Neuts (auto) Neutrophils % Lymphocytes % Monocytes % Eosinophils % Basophils % Nucleated RBC % PT with INR 12.30 INR 1.04 D-Dimer Sodium 141 Potassium 3.1 L Chloride 101 Carbon Dioxide 32 Anion Gap 8 BUN 37.1 H Creatinine 1.3 Est GFR (CKD-EPI)AfAm 55.01 Est GFR (CKD-EPI)NonAf 47.46 Random Glucose 85 Calcium 8.9 Phosphorus 4.1 Magnesium 2.3 Total Bilirubin 0.4 AST 22 ALT 31 Alkaline Phosphatase 110 Creatine Kinase 77 Troponin I < 0.02 B-Natriuretic Peptide 127.7 H Total Protein 7.6 Albumin 3.6 Triglycerides Cholesterol Total LDL Cholesterol HDL Cholesterol TSH Urine Color Yellow Urine Appearance Clear Urine pH 5.5 Ur Specific [place] 1.017 Urine Protein 1+ H Urine Glucose (UA) Negative Urine Ketones Negative Urine Blood Negative Urine Nitrite Negative Urine Bilirubin Negative Urine Urobilinogen 0.2 Ur Leukocyte Esterase Negative Urine WBC (Auto) 8 Urine RBC (Auto) 0-3 Urine Casts (Auto) 1 U Epithel Cells (Auto) 1.8 Urine Bacteria (Auto) 41.0 Influenza A (Rapid) Influenza B (Rapid) 10/28/19 10/28/19 10/28/19 18:00 22:05 22:05 WBC RBC Hgb Hct MCV MCH MCHC RDW Plt Count MPV Absolute Neuts (auto) Neutrophils % Lymphocytes % Monocytes % Eosinophils % Basophils % Nucleated RBC % PT with INR INR D-Dimer 721 H Sodium Potassium Chloride Carbon Dioxide Anion Gap BUN Creatinine Est GFR (CKD-EPI)AfAm Est GFR (CKD-EPI)NonAf Random Glucose Calcium Phosphorus 3.5 Magnesium 2.3 Total Bilirubin AST ALT Alkaline Phosphatase Creatine Kinase Troponin I < 0.02 B-Natriuretic Peptide 102.0 Total Protein Albumin Triglycerides Cholesterol Total LDL Cholesterol HDL Cholesterol TSH 0.59 Urine Color Urine Appearance Urine pH Ur Specific [place] Urine Protein Urine Glucose (UA) Urine Ketones Urine Blood Urine Nitrite Urine Bilirubin Urine Urobilinogen Ur Leukocyte Esterase Urine WBC (Auto) Urine RBC (Auto) Urine Casts (Auto) U Epithel Cells (Auto) Urine Bacteria (Auto) Influenza A (Rapid) Influenza B (Rapid) 10/29/19 10/29/19 10/29/19 05:50 05:50 15:30 WBC 5.1 RBC 3.84 Hgb 10.7 Hct 31.7 L MCV 82.8 MCH 27.8 MCHC 33.6 RDW 14.4 Plt Count 261 MPV 8.4 Absolute Neuts (auto) 2.9 Neutrophils % 56.7 Lymphocytes % 28.7 Monocytes % 12.1 H Eosinophils % 1.9 Basophils % 0.6 Nucleated RBC % 0 PT with INR INR D-Dimer Sodium 139 140 Potassium 2.7 L* 3.2 L Chloride 101 101 Carbon Dioxide 31 32 Anion Gap 8 6 L BUN 28.8 H 28.6 H Creatinine 1.1 1.2 Est GFR (CKD-EPI)AfAm 67.32 60.60 Est GFR (CKD-EPI)NonAf 58.08 52.28 Random Glucose 86 105 Calcium 8.3 L 8.7 Phosphorus 3.7 Magnesium 2.1 Total Bilirubin 0.5 AST 20 ALT 29 Alkaline Phosphatase 102 Creatine Kinase Troponin I B-Natriuretic Peptide Total Protein 6.7 Albumin 3.3 L Triglycerides 108 Cholesterol 224 H Total LDL Cholesterol 145 H HDL Cholesterol 56 TSH Urine Color Urine Appearance Urine pH Ur Specific [place] Urine Protein Urine Glucose (UA) Urine Ketones Urine Blood Urine Nitrite Urine Bilirubin Urine Urobilinogen Ur Leukocyte Esterase Urine WBC (Auto) Urine RBC (Auto) Urine Casts (Auto) U Epithel Cells (Auto) Urine Bacteria (Auto) Influenza A (Rapid) Influenza B (Rapid) 10/29/19 16:15 WBC RBC Hgb Hct MCV MCH MCHC RDW Plt Count MPV Absolute Neuts (auto) Neutrophils % Lymphocytes % Monocytes % Eosinophils % Basophils % Nucleated RBC % PT with INR INR D-Dimer Sodium Potassium Chloride Carbon Dioxide Anion Gap BUN Creatinine Est GFR (CKD-EPI)AfAm Est GFR (CKD-EPI)NonAf Random Glucose Calcium Phosphorus Magnesium Total Bilirubin AST ALT Alkaline Phosphatase Creatine Kinase Troponin I B-Natriuretic Peptide Total Protein Albumin Triglycerides Cholesterol Total LDL Cholesterol HDL Cholesterol TSH Urine Color Urine Appearance Urine pH Ur Specific [place] Urine Protein Urine Glucose (UA) Urine Ketones Urine Blood Urine Nitrite Urine Bilirubin Urine Urobilinogen Ur Leukocyte Esterase Urine WBC (Auto) Urine RBC (Auto) Urine Casts (Auto) U Epithel Cells (Auto) Urine Bacteria (Auto) Influenza A (Rapid) Negative Influenza B (Rapid) Negative HOSPITAL COURSE: Ms. King is a 49y/o female with obesity, HTN, HLD, GERD, asthma, anemia, and glaucoma who presents with lightheadedness and shortness of breath that lasted several minutes in a store. She did not lose consciousness, nor has she had a previous episode. EKG showed no acute ST changes, trops negative x2. Elevated d- dimer but CTA negative for PE, U/S negative for DVT. Rapid flu swab negative. Orthostatics negative. Urine cx negative. Pt was continued on home amlodipine, hydralazine, and losartan. Chlorithalidone was held, and patient was instructed to follow up with primary care early next week for hypokalemia, and medication may need to be discontinued. Pt has been hypokalemic on previous admissions as well. She was supplemented. Wake risk 1.8% 10 year risk. Pt's pressure was stable, and she was asymptomatic during course. She was discharged home after what was likely a vasovagal pre-syncope. Date of Admission:10/29/19 Date of Discharge: 10/29/19 Minutes to complete discharge: 35 Discharge Summary Problems reviewed: Yes Reason For Visit: DYSPNEA ON EXERTION, DIZZINESS Current Active Problems Electrolyte imbalance (Acute) Near syncope (Acute) Condition: Improved - Instructions Diet, Activity, Other Instructions: Hospital Course You were admitted to be monitored for lightheadedness and shortness of breath. Your potassium was low, and you were given supplements for it Medications Continue your home medications. stop taking the chlothalidone check your blood pressure daily in morning . write down the numbers and reprot to your doctor. call MD urgently if pressure is > 160. or the lower number > [address] Olson, primary care, at the beginning of next week. Please call Friday for the first available appointment. chlorthalidone might need to be replaced with some other agent Dr. Smyth, pulmonology, 1-2 weeks after discharge. You may need a sleep study. Dr. Sherman, cardiology, 1-2 weeks after discharge. You may need a stress test. Other instructions Return to the emergency room or call 911 if you have chest pain, chest tightness or pressure, difficulty breathing, muscle cramps, or vomiting. you need your electrolytes checked in 3-4 days Referrals: Alin Sherman MD [Staff Physician] - 3 Weeks Tiffanie Olson MD [Staff Physician] - 1 Week Disposition: HOME - Home Medications Comprehensive Discharge Medication List: Ambulatory Orders Amlodipine Besylate [Norvasc -] 10 mg PO DAILY #30 tablet 04/02/18 Losartan Potassium 100 mg PO DAILY #30 tablet 04/02/18 Hydralazine HCl 25 mg PO BID 01/12/19 Budesonide/Formeterol Fumarate [SYMBICORT 160/4.5mcg -] 2 puff IH BID 08/24/19 Famotidine [Pepcid -] 40 mg DAILY 10/29/19 Medical Supply, Miscellaneous [Blood Pressure Cuff] 1 each MC DAILY #1 each This patient is new to me today: Yes Date on this admission: 10/29/19 Emergency Visit: Yes ED Registration Date: 10/29/19 Care time: The patient presented to the Emergency Department on the above date and was hospitalized for further evaluation of their emergent condition. Critical Care patient: No - Discharge Referral Referred to [facility] Med P.C.: No ATTENDING PHYSICIAN STATEMENT I saw and evaluated the patient. I reviewed the resident's note and discussed the case with the resident. I agree with the resident's findings and plan as documented. SUBJECTIVE: OBJECTIVE: ASSESSMENT AND PLAN:
[2019-10-29 18:29] VITALS: BP 144/92; PULSE 72; TEMP 98.5
--- NOTE | 2019-10-29 18:56 | CONS ---
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 Admitted to [facility] on October 29 with complaint of 4-day history of lightheadedness and diminished shortness of breath, dyspnea on exertion, and bilateral lower extremity heaviness and swelling. She also complained of orthopnea. She denied any chest pain, nausea, vomiting, or diaphoresis. Denied any hemoptysis. Denied any bronchospasm. Apparently, patient is a nonsmoker. Patient denies any occupational exposure to chemicals or fumes. Apparently, she denied any fevers or chills. Patient states she has been in contact with her daughter and her granddaughter recently recovering from a viral illness. Patient states that she snores, has occasional daytime sleepiness. Denies any witnessed apneic episodes. Patient underwent a CT scan of the chest, which revealed evidence of dilatation in the pulmonary arteries suggesting increased pulmonary arterial pressure. Of note is the patient was evaluated by Dr. Sherman for Cardiology consultation. PAST MEDICAL HISTORY: Includes GERD, hypertension, hyperlipidemia, obesity, asthma, history of lower extremity trauma status post surgery July 2019. REVIEW OF SYSTEMS: Positive orthopnea, positive dyspnea on exertion. No chest pain, no palpitations. Positive lower extremity pain. CURRENT MEDICATIONS: Include Lovenox, Tylenol. PHYSICAL EXAMINATION: General: Patient is an obese female awake, alert in no acute distress. Vital Signs: She is afebrile. Blood pressure 133/99, respiratory rate 20, O2 saturation 99% on room air. HEENT: Normocephalic, atraumatic. Neck: Supple. Heart: Regular S1, S2. Chest: Clear. Abdomen: Soft. Bowel sounds are positive. Extremities: No cyanosis or edema. LABORATORIES: Potassium 2.7, BUN 28. BNP 127. WBCs 5.1, hemoglobin 10.7, hematocrit 31.7 with a platelet count of 261,000. Chest CT, again, no acute infiltrates and/or infiltrates, and mild dilatation of the pulmonary artery. IMPRESSION: 1. Dyspnea, etiology to be determined. 2. Asthma, not in acute exacerbation. 3. Diastolic dysfunction, rule out possible cardiac etiology, rule out pulmonary hypertension. 4. Gastroesophageal reflux disease. 5. Hypertension. 6. Hyperlipidemia. 7. Suspected obstructive sleep apnea. 8. Acute kidney injury. 9. Electrolyte imbalance. 10. Anemia. PLAN: Inhaled bronchodilators. Supplemental O2. Obtain sleep screen also formal sleep study as an outpatient. Obtain echocardiogram. Replete electrolytes. Monitor electrolytes, renal function. IV fluids. FRANSISCA IYER M.D. [id number]
[2019-10-29] MEDS ORDERED: hydrALAZINE HCL 25 MG TABLET (FP) PO SCH (22:00)
== END 2019-10-29 19:16 | disposition home or self-care (01) | DRG 641 ==
LOC: JER 13:54 → JERBED 23:33 → OBSVTOIN 10-29 02:56 → J4W 10-29 04:54
PROVIDERS: ADMIT Internal Medicine; ATTEND Internal Medicine
DX: E87.6 Hypokalemia (principal); N17.9 Acute kidney failure, unspecified; R42 Dizziness and giddiness; K21.9 Gastro-esophageal reflux disease without esophagitis; E78.00 Pure hypercholesterolemia, unspecified; E66.9 Obesity, unspecified; Z68.32 Body mass index [BMI] 32.0-32.9, adult; I10 Essential (primary) hypertension; E78.5 Hyperlipidemia, unspecified; J45.909 Unspecified asthma, uncomplicated; H40.9 Unspecified glaucoma; G47.33 Obstructive sleep apnea (adult) (pediatric); D64.9 Anemia, unspecified; I27.20 Pulmonary hypertension, unspecified; E87.8 Other disorders of electrolyte and fluid balance, not elsewhere classified; R51 Headache
CPT/HCPCS: 36415; 71045-TC-FY; 71275-TC; 80048; 80053; 80061; 81003; 82550; 83721; 83735; 83880; 84100; 84443; 84484; 84703; 85025; 85379; 85610; 87086; 87804; 93005; 93010; 93306-TC; 93970-TC; 97116-GP; 99285-25; G0378; J0131; Q9967

== ENCOUNTER 2020-01-03 11:24 | Observation (INO) | payer BC ==
[2020-01-03] MEDS ORDERED: SODIUM CHLORIDE 1,000 ML IV STA (12:50)
[2020-01-03] MEDS ORDERED: MECLIZINE HCL 25 MG TABLET (FP) PO ONE (12:50)
[2020-01-03] MEDS ORDERED: MECLIZINE HCL 25 MG TABLET (FP) ONE (12:58)
--- NOTE | 2020-01-03 13:26 | PDOC ---
History of Present Illness - General Chief Complaint: Lightheaded Stated Complaint: DIZZY Time Seen by Provider: 01/03/20 12:20 History Source: Patient - History of Present Illness Timing/Duration: reports: other (this am) Severity: Yes: moderate Past History - Past Medical History Allergies/Adverse Reactions: Allergies Allergy/AdvReac Type Severity Reaction Status Date / Time codeine [Codeine] Allergy Verified 10/28/19 14:05 ibuprofen [From Motrin] Allergy Verified 10/28/19 14:05 Home Medications: Ambulatory Orders Amlodipine Besylate [Norvasc -] 10 mg PO DAILY #30 tablet 04/02/18 Losartan Potassium 100 mg PO DAILY #30 tablet 04/02/18 Hydralazine HCl 25 mg PO BID 01/12/19 Budesonide/Formeterol Fumarate [SYMBICORT 160/4.5mcg -] 2 puff IH BID 08/24/19 Famotidine [Pepcid -] 40 mg DAILY 10/29/19 Medical Supply, Miscellaneous [Blood Pressure Cuff] 1 each MC DAILY #1 each Anemia: No Asthma: Yes Cancer: No Cardiac Disorders: Yes (Heart Murmur) CVA: No COPD: No CHF: No Dementia: No Diabetes: No GI Disorders: Yes (GERD) Disorders: No HTN: Yes Hypercholesterolemia: Yes Liver Disease: No Seizures: No Thyroid Disease: No - Immunization History Td Vaccination: Yes Immunization Up to Date: Yes - Psycho Social/Smoking Cessation Hx Smoking Status: No Smoking History: Never smoked Years of Tobacco Use: 0 Have you smoked in the past 12 months: No Number of Cigarettes Smoked Daily: 0 Cigars Per Day: 0 Information on smoking cessation initiated: No Hx Alcohol Use: No Drug/Substance Use Hx: No Substance Use Type: None Hx Substance Use Treatment: No Neuro Specific PMHX - Complaint Specific PMHX Glaucoma: Yes (R and L) Review of Systems - Review of Systems Constitutional: No: Chills, Fever Respiratory: Yes: Cough. No: Shortness of Breath Cardiac (ROS): No: Chest Pain, Palpitations, Syncope Neurological: Yes: Dizziness. No: Headache, Numbness, Tingling, Weakness *Physical Exam - Vital Signs Last Vital Signs Temp Pulse Resp BP Pulse Ox 97.7 F 71 16 151/89 100 01/03/20 11:46 01/03/20 11:46 01/03/20 11:46 01/03/20 11:46 01/03/20 11:46 - Physical Exam General Appearance: Yes: Appropriately Dressed, Mild Distress HEENT: positive: Normal Voice Neck: positive: Supple Respiratory/Chest: positive: Lungs Clear, Normal Breath Sounds. negative: Respiratory Distress Cardiovascular: positive: Regular Rate, S1, S2 Gastrointestinal/Abdominal: positive: Soft. negative: Tender Integumentary: positive: Dry, Warm Neurologic: positive: detective captain II-XII NML intact, Fully Oriented, Alert, Normal Mood/ Affect, Normal Response, Motor Strength 5/5, Finger to Nose, Other (no nystagmus , Radames intact, no ataxia, no drift). negative: Facial Droop, Sensory Deficit, Disoriented ED Treatment Course - LABORATORY CBC & Chemistry Diagram: 01/03/20 13:00 01/03/20 13:00 Medical Decision Making - Medical Decision Making 01/03/20 13:23 49-year-old female, h/o JENINFER, hypertension, hyperlipidemia, asthma, anemia, glaucoma, here with vertigo. Patient states this a.m. while at work developed sensation of the room spinning, worse with certain positions. No blurry vision , slurred speech, sensory changes, neck pain or focal weakness, chest pain or shortness of breath. Had similar episode many years ago. Patient does report having a "stomach virus" recently c/w n/v/d and cough. States those symptoms have since improved see exam Vertigo in setting of recent viral illness No focal deficits -trial of meclizine and reassess -ekg/labs given comorbidities 01/03/20 14:47 Labs unremarkable except for mild decrease in potassium to 3.3, EKG unremarkable. Dose of potassium in progress. Patient states she continues to feel weak and vertiginous. Remains non-focal. Will continue to manage symptoms in ED 01/03/20 16:21 On reassessment, patient complaining of profound weakness and states when she walks to the bathroom she became so vertiginous that she has to sit back down. Remains non-focal on repeat exam. Will admit at this time. Will most likely need neuro consult and possible MRI while in-house 01/03/20 16:47 Case discussed with admitting team who recommended CT head in ED Discharge - Discharge Information Problems reviewed: Yes Clinical Impression/Diagnosis: Vertigo Condition: Fair - Admission Yes - Follow up/Referral Referrals: Tiffanie Albert MD [Primary Care Provider] - - Patient Discharge Instructions - Post Discharge Activity
[2020-01-03 13:29] LABS: BASO % 0.7 % (0-2.0); EOS % 1.4 % (0-4.5); HEMATOCRIT 33.1 % (32.4-45.2); HEMOGLOBIN 11.3 GM/dL (10.7-15.3); LYMPH % 21.6 % (8-40); MCH 28.6 pg (25.7-33.7); MCHC 34.1 g/dl (32.0-36.0); MEAN CELL VOLUME 83.7 fl (80-96); MEAN PLT VOLUME 8.7 fl (7.5-11.1); MONO % 9.6 % (3.8-10.2); NEUT % 66.7 % (42.8-82.8); PLATELET COUNT 282 K/MM3 (134-434); RBC 3.95 M/mm3 (3.60-5.2)
[2020-01-03 14:01] LABS: ALBUMIN 3.8 g/dl (3.4-5.0); ALK PHOS 117 U/L (45-117); ANION GAP 7 MMOL/L (8-16); BILIRUBIN,TOTAL 0.3 mg/dL (0.2-1); BLOOD UREA NITROGEN 27.5 mg/dL (7-18); CALCIUM 9.1 mg/dL (8.5-10.1); CHLORIDE 98 mmol/L (98-107); CO2 34 mmol/L (21-32); CREATININE 1.3 mg/dL (0.55-1.3); GLUCOSE,RANDOM 89 mg/dL (74-106); POTASSIUM 3.3 mmol/L (3.5-5.1); SGOT/AST 22 U/L (15-37); SGPT/ALT 29 U/L (13-61); SODIUM 138 mmol/L (136-145); TOT PROT 7.8 g/dl (6.4-8.2)
[2020-01-03] MEDS ORDERED: POTASSIUM CHLORIDE ORAL LIQUID 20 MEQ/15 ML PO ONE (14:15)
[2020-01-03] MEDS ORDERED: POTASSIUM CHLORIDE ORAL LIQUID 20 MEQ/15 ML ONE (14:21)
[2020-01-03] MEDS ORDERED: ONDANSETRON 4 MG TABLET PO ONE ×2 (14:24→14:52)
[2020-01-03] MEDS ORDERED: diazePAM 5 MG TABLET PO ONE (14:24)
[2020-01-03] MEDS ORDERED: diazePAM 5 MG TABLET ONE (14:53)
--- NOTE | 2020-01-03 15:00 | EKG ---
Test Reason : Blood Pressure : / mmHG Vent. Rate : 070 BPM Atrial Rate : 070 BPM P-R Int : 180 ms QRS Dur : 090 ms QT Int : 444 ms P-R-T Axes : -10 025 049 degrees QTc Int : 479 ms NORMAL SINUS RHYTHM BASELINE ARTIFACT ABNORMAL ECG WHEN COMPARED WITH ECG OF 28-OCT-2019 15:46, NO SIGNIFICANT CHANGE WAS FOUND Confirmed by Wan Smith ([id number]) on 01/03/2020 2:59:36 PM Referred By: Confirmed By:Wan Smith
[2020-01-03 15:43] LABS: URINE APPEARANCE CLEAR; URINE BILIRUBIN NEGATIVE (NEGATIVE); URINE COLOR YELLOW; URINE GLUCOSE (UA) NEGATIVE (NEGATIVE); URINE KETONE NEGATIVE (NEGATIVE); URINE LEUK ESTERASE NEGATIVE (NEGATIVE); URINE NITRITE NEGATIVE (NEGATIVE); URINE PROTEIN NEGATIVE (NEGATIVE); URINE UROBILINOGEN 0.2 mg/dL (0.2-1.0)
--- NOTE | 2020-01-03 17:16 | HP ---
CHIEF COMPLAINT: dizziness PCP: Dr. Albert HISTORY OF PRESENT ILLNESS: This is a 49 y/o F with a PMHx of HTN, HLD, GERD, asthma, anemia, glaucoma who p/w dizziness while at work today. Pt admits to having a stomach virus X 5 days associated with n,v,watery diarrhea, subjective fevers, chills, body aches, and generalized weakness. This AM pt noted she felt better and decided to go to work. She is a preschool teacher. At work she began to fill dizziness stating she felt the room was spinning around her associated with SOB, and it was worsened with movement. She denied cp, palpitations, tinnitus, hearing loss. She admits to taking chlorthalidone 25 BID although she was told to stop it her last admission. This is the second time she experienced this dizziness before, last time was yrs ago. ER course was notable for: (1) meclizine, valium given (2)fluid bolus given, orthostatics negative (3)CT head negative Recent Travel: denies PAST SURGICAL HISTORY: LLE superficial thrombectomy 2/2 injury Social History: Smoking: denies Alcohol: denies Drugs: denies Allergies codeine [Codeine] Allergy (Verified 10/28/19 14:05) ibuprofen [From Motrin] Allergy (Verified 10/28/19 14:05) HOME MEDICATIONS: Home Medications Medication Instructions Recorded Amlodipine Besylate [Norvasc -] 10 mg PO DAILY #30 tablet 04/02/18 Losartan Potassium 100 mg PO DAILY #30 tablet 04/02/18 Hydralazine HCl 25 mg PO BID 01/12/19 Budesonide/Formeterol Fumarate 2 puff IH BID 08/24/19 [SYMBICORT 160/4.5mcg -] Famotidine [Pepcid -] 40 mg DAILY 10/29/19 Medical Supply, Miscellaneous 1 each MC DAILY #1 each 10/29/19 [Blood Pressure Cuff] REVIEW OF SYSTEMS Negative except as above PHYSICAL EXAMINATION Vital Signs - 24 hr 01/03/20 01/03/20 11:46 16:56 Temperature 97.7 F 97.6 F Pulse Rate 71 Pulse Rate [ 73 Right Radial] Respiratory 16 Rate Blood Pressure 151/89 Blood Pressure 133/75 [Right Arm] O2 Sat by Pulse 100 96 Oximetry (%) GENERAL: Awake, alert, and fully oriented, in no acute distress. HEAD: Normal with no signs of trauma. EYES: Pupils equal, round and reactive to light, extraocular movements intact, left eye ambylopia EARS, NOSE, THROAT: Ears nontender to tragal palpation, erythematous left ear, nares patent, oropharynx clear without exudates. Moist mucous membranes. NECK: Normal range of motion, supple without lymphadenopathy, JVD, or masses. LUNGS: Breath sounds equal, clear to auscultation bilaterally. Diffuse inspiratory wheezing HEART: Regular rate and rhythm, normal S1 and S2 without murmur, rub or gallop. ABDOMEN: Soft, nontender, not distended, normoactive bowel sounds, no guarding, no rebound, no masses. No hepatomegaly or splenomegaly. LOWER EXTREMITIES: 2+ pulses, warm, well-perfused. No calf tenderness. 1+ peripheral edema. NEUROLOGICAL: Cranial nerves II-XII intact. Normal speech. Normal gait. genrali zed weakness, positive romberg sign SKIN: Warm, dry, poor capillary refill. Laboratory Results - last 24 hr 01/03/20 01/03/20 01/03/20 12:38 13:00 13:00 WBC 7.0 RBC 3.95 Hgb 11.3 Hct 33.1 MCV 83.7 MCH 28.6 MCHC 34.1 RDW 14.0 Plt Count 282 MPV 8.7 Absolute Neuts (auto) 4.6 Neutrophils % 66.7 Lymphocytes % 21.6 D Monocytes % 9.6 Eosinophils % 1.4 Basophils % 0.7 Nucleated RBC % 0 Sodium 138 Potassium 3.3 L Chloride 98 Carbon Dioxide 34 H Anion Gap 7 L BUN 27.5 H Creatinine 1.3 Est GFR (CKD-EPI)AfAm 55.01 Est GFR (CKD-EPI)NonAf 47.46 Random Glucose 89 Calcium 9.1 Total Bilirubin 0.3 AST 22 ALT 29 Alkaline Phosphatase 117 Creatine Kinase 85 Troponin I < 0.02 Total Protein 7.8 Albumin 3.8 Urine Color Yellow Urine Appearance Clear Urine pH 8.0 D Ur Specific [place] 1.004 L Urine Protein Negative Urine Glucose (UA) Negative Urine Ketones Negative Urine Blood Negative Urine Nitrite Negative Urine Bilirubin Negative Urine Urobilinogen 0.2 Ur Leukocyte Esterase Negative ASSESSMENT/PLAN: This is a 49 y/o F with a PMHx of HTN, HLD, GERD, asthma, anemia, glaucoma who p/w dizziness while at work today. Pt admits to having a stomach virus X 5 days associated with n,v,watery diarrhea, subjective fevers, chills, body aches, and generalized weakness. This AM pt noted she felt better and decided to go to work. She is a preschool teacher. #Dizziness - likely 2/2 viral labrynthitis vs vertigo vs volume depleted from vomiting/diarrhea fall risk precautions PT eval, likely benefit from vestibular rehab Neuro consulted (Dr. Schwab) MRI ordered to assess inner ear orthostatic vitals negative s/p fluids given IV LR 75/hr - Echo in 10/21 showing EF-55-60%, impaired LV relaxation, moderate calcified AV - stress test normal 2017 - carotid US ordered given 2nd episode of vertigo and generalized weakness CXR- negative for acute issues CT head negative for acute intracranial pathology antivert given in ED will continue 25mg - TSH, Mg, Po4 #Hypokalemia - likely 2/2 diarrhea combined with chlorthalidone use - 40 Kdur given - pt has not been taking her Kcl as prescribed #Asthma - continued home inhalers - duonebs PRN for wheezing - o/p pft's - not in exacerbation at this time #HTN - Hold chlorthalidone - continue norvasc, hydralazine BID, losartan 100 #HLD - not on statin - lipid panel ordered - will assess ASCVD risk after lipid panel results #GERD - FAMOTIDINE 40daily DVT ppx: Lovenox 40 SQ Visit type - Emergency Visit Emergency Visit: Yes ED Registration Date: 01/03/20 Care time: The patient presented to the Emergency Department on the above date and was hospitalized for further evaluation of their emergent condition. - New Patient This patient is new to me today: Yes Date on this admission: 01/03/20 - Critical Care Critical Care patient: No ATTENDING PHYSICIAN STATEMENT I saw and evaluated the patient. I reviewed the resident's note and discussed the case with the resident. I agree with the resident's findings and plan as documented. SUBJECTIVE: OBJECTIVE: ASSESSMENT AND PLAN:
--- NOTE | 2020-01-03 17:48 | PN ---
Teaching Attending Note Name of Resident: Remi Andrade ATTENDING PHYSICIAN STATEMENT I saw and evaluated the patient. I reviewed the resident's note and discussed the case with the resident. I agree with the resident's findings and plan as documented. SUBJECTIVE: Reports sensation of the room spinning. Some nausea, no vomiting. No headache/visual impairment/limb numbness or weakness. OBJECTIVE: Afebrile, Hemodynamically Stable. Last Vital Signs Temp Pulse Resp BP Pulse Ox 97.6 F 73 16 133/75 96 01/03/20 16:56 01/03/20 16:56 01/03/20 11:46 01/03/20 16:56 01/03/20 16:56 HEENT - Atraumatic, normocephalic. Heart - S1, S2, RRR Lungs - clear to auscultation Abdomen - soft, non-tender. bowel Sounds normal. Extremities - no edema, no calf tenderness. Neuro - AAO x 3. No vertigo. Tone/Power normal all extremities. Laboratory Results - last 24 hr 01/03/20 01/03/20 01/03/20 12:38 13:00 13:00 WBC 7.0 RBC 3.95 Hgb 11.3 Hct 33.1 MCV 83.7 MCH 28.6 MCHC 34.1 RDW 14.0 Plt Count 282 MPV 8.7 Absolute Neuts (auto) 4.6 Neutrophils % 66.7 Lymphocytes % 21.6 D Monocytes % 9.6 Eosinophils % 1.4 Basophils % 0.7 Nucleated RBC % 0 Sodium 138 Potassium 3.3 L Chloride 98 Carbon Dioxide 34 H Anion Gap 7 L BUN 27.5 H Creatinine 1.3 Est GFR (CKD-EPI)AfAm 55.01 Est GFR (CKD-EPI)NonAf 47.46 Random Glucose 89 Calcium 9.1 Total Bilirubin 0.3 AST 22 ALT 29 Alkaline Phosphatase 117 Creatine Kinase 85 Troponin I < 0.02 Total Protein 7.8 Albumin 3.8 Urine Color Yellow Urine Appearance Clear Urine pH 8.0 D Ur Specific [place] 1.004 L Urine Protein Negative Urine Glucose (UA) Negative Urine Ketones Negative Urine Blood Negative Urine Nitrite Negative Urine Bilirubin Negative Urine Urobilinogen 0.2 Ur Leukocyte Esterase Negative Current Medications Generic Name Dose Route Start Last Admin Trade Name Freq PRN Reason Stop Dose Admin Enoxaparin Sodium 40 mg 01/04/20 10:00 Lovenox - SQ DAILY JOAN Home Medications Medication Instructions Recorded Amlodipine Besylate [Norvasc -] 10 mg PO DAILY #30 tablet 04/02/18 Losartan Potassium 100 mg PO DAILY #30 tablet 04/02/18 Hydralazine HCl 25 mg PO BID 01/12/19 Budesonide/Formeterol Fumarate 2 puff IH BID 08/24/19 [SYMBICORT 160/4.5mcg -] Famotidine [Pepcid -] Chlorthalidone 40 mg DAILY 10/29/19 Medical Supply, Miscellaneous 1 each DAILY #1 each 10/29/19 [Blood Pressure Cuff] ASSESSMENT AND PLAN: 49 year old female with JENNIFER, HTN, HLD, Asthma, Chronic Anemia, Glaucoma presents with dizziness, sensation of room spinning after recent viral infection. 1. Lightheadedness, likely Vertigo (BPPV) vs Labyrinthitis CT Head negative Last Echo 10/21 - normal EF, impaired LV relaxation Orthostatic vitals negative (done after hydration) MRI Brain requested Hold Chlorthalidone. Trial of Meclizine PT, reece likely benefit from Vesticular Rehab. 2 HTN - Continue Norvasc, Losartan, Hydralazine. Chlorthalidone held. 3. Asthma, JENNIFER - continue Symbicort. For Pulmonary follow up as out-patient. DVT Px - Lovenox SQ
[2020-01-03] MEDS ORDERED: ALBUTEROL SO4 2.5/IPRATROPIUM 0.5 INH SOL 3 ML VIAL.NEB. NEB PRN (18:13)
--- NOTE | 2020-01-03 18:36 | CON.NEURO ---
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 Patient had 5 day history of stomach virus with watery diarrhea report of any recent travel no report of any weight loss or weight gain. No head trauma patient in the emergency room had a CAT scan of the head which revealed no evidence of acute pathology. 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 History of Recent Travel: No Home Medications - Allergies Allergies/Adverse Reactions: Allergies Allergy/AdvReac Type Severity Reaction Status Date / Time codeine [Codeine] Allergy Verified 10/28/19 14:05 ibuprofen [From Motrin] Allergy Verified 10/28/19 14:05 - Home Medications Home Medications: Ambulatory Orders Amlodipine Besylate [Norvasc -] 10 mg PO DAILY #30 tablet 04/02/18 Hydralazine HCl 25 mg PO BID 01/12/19 Budesonide/Formeterol Fumarate [SYMBICORT 160/4.5mcg -] 2 puff IH BID 08/24/19 Famotidine [Pepcid -] 40 mg DAILY 10/29/19 Chlorthalidone 25 mg PO DAILY 01/03/20 Losartan Potassium 100 mg PO HS 01/03/20 Family Medical History Family History: Unremarkable Review of Systems - Review of Systems Constitutional: reports: No Symptoms Eyes: reports: No Symptoms Neurological: reports: Dizziness, Incoordination, Numbness, Parasthesia Physical Exam-Neuro Vital Signs: Vital Signs Temperature 97.6 F 01/03/20 16:56 Pulse Rate 73 01/03/20 16:56 Respiratory Rate 16 01/03/20 11:46 Blood Pressure 133/75 01/03/20 16:56 O2 Sat by Pulse Oximetry (%) 96 01/03/20 16:56 Constitutional: Yes: Well Nourished Neck: Yes: WNL Cardiovascular: Yes: WNL Respiratory: Yes: WNL Labs: CBC, BMP 01/03/20 13:00 01/03/20 13:00 - Neuro Exam Level Of Consciousness: Yes: Oriented to Person, Oriented to Place, Oriented to Time Eyes: Yes: PERRLA Speech: WNL Dominant Hand: Right Cranial Nerves II-XII Intact: Yes DTR's: 1+ Left Bicep, 1+ Right Bicep, 1+ Left Tricep, 1+ Right Tricep Response to light touch: Normal Response to pain prick: Normal Response to temperature: Normal Response to vibration: Normal Motor Strength: 3/5: Left Arm, Right Arm, Left Leg, Right Leg Gait: Deferred Imaging - Results Cat Scan: Image Reviewed Problem List - Problems (1) Vertigo Code(s): R42 - DIZZINESS AND GIDDINESS Assessment/Plan no evidence of acute MOBILE PET GROOMER pathology Dehydration Subacute labyrinthitis 1. Valium 2 mg at bedtime. 2. MRI of the brain and internal auditory canal. 3. Don't think the patient needs cardiac workup. 4. Meclizine 25 mg twice daily. Patient will benefit from vestibular testing as an outpatient. Manjit Nelson M.D., MSc [facility] [address] [place] [address] Office
[2020-01-03] MEDS: LACTATED RINGERS SOLUTION 1,000 ML/1,000 ML INFUS.BAG IV SCH (19:53)
[2020-01-03] MEDS ORDERED: LORazepam 2 MG/ML SDV VIAL ONE (20:34)
[2020-01-03] MEDS ORDERED: PATIENT'S OWN MEDICATION (NON-FORMULARY) (Losartan Potassium [Losartan Potassium] 100 MG) PO SCH (22:00)
[2020-01-03] MEDS: hydrALAZINE HCL 25 MG TABLET (FP) PO SCH (23:13)
[2020-01-03] MEDS: LOSARTAN POTASSIUM 50 MG TABLET (FP) PO SCH (23:13)
[2020-01-03 23:26] VITALS: BMI 33.2
[2020-01-03] MEDS: BUDESONIDE/FORMETEROL FUMARATE 160/4.5 mcg INHALER IH SCH (23:37)
[2020-01-04 06:39] LABS: HEMATOCRIT 31.1 % (32.4-45.2); HEMOGLOBIN 10.6 GM/dL (10.7-15.3); MCH 28.4 pg (25.7-33.7); MCHC 34.1 g/dl (32.0-36.0); MEAN CELL VOLUME 83.3 fl (80-96); MEAN PLT VOLUME 8.5 fl (7.5-11.1); PLATELET COUNT 251 K/MM3 (134-434); RBC 3.73 M/mm3 (3.60-5.2); RDW 14.3 % (11.6-15.6); WHITE BLOOD COUNT 4.9 K/mm3 (4.0-10.0)
[2020-01-04 07:02] LABS: CHOLESTEROL 201 mg/dL (50-200); HDL CHOLESTEROL 51 mg/dL (40-60); LDL CHOLESTEROL (ONLY SJRH) 126 mg/dL (5-100); TRIGLYCERIDES 70 mg/dL (0-150)
[2020-01-04 07:07] LABS: BLOOD UREA NITROGEN 21.6 mg/dL (7-18); CALCIUM 8.7 mg/dL (8.5-10.1); CREATININE 1.2 mg/dL (0.55-1.3); MAGNESIUM 2.2 mg/dL (1.8-2.4); PHOSPHOROUS 3.7 mg/dL (2.5-4.9); POTASSIUM 3.3 mmol/L (3.5-5.1)
[2020-01-04] MEDS ORDERED: POTASSIUM CHLORIDE TABS 20 MEQ TABLET.ER (FP) PO ONE (07:10)
--- NOTE | 2020-01-04 07:39 | PN ---
Physical Exam: SUBJECTIVE: Patient seen and examined. Pt refused MRI yesterday due to claustrophobia will try again today. Pt states she feels confused. She is AO X3 though. OBJECTIVE: Vital Signs Period Temp Pulse Resp BP Sys/Stark Pulse Ox Last 24 Hr 97.6 F-98.7 F 60-75 12-18 118-151/75-93 96-100 GENERAL: The patient is awake, alert, and fully oriented, in no acute distress. LUNGS: Breath sounds equal, clear to auscultation bilaterally, no wheezes, no crackles, no accessory muscle use. HEART: Regular rate and rhythm, S1, S2 without murmur, rub or gallop. ABDOMEN: Soft, nontender, nondistended, normoactive bowel sounds, no guarding, no rebound, no hepatosplenomegaly, no masses. EXTREMITIES: 2+ pulses, warm, well-perfused, no edema. NEUROLOGICAL: Cranial nerves II through XII grossly intact. Normal speech, positive romberg sign, unable to assess Laboratory Results - last 24 hr 01/03/20 01/03/20 01/03/20 12:38 13:00 13:00 WBC 7.0 RBC 3.95 Hgb 11.3 Hct 33.1 MCV 83.7 MCH 28.6 MCHC 34.1 RDW 14.0 Plt Count 282 MPV 8.7 Absolute Neuts (auto) 4.6 Neutrophils % 66.7 Lymphocytes % 21.6 D Monocytes % 9.6 Eosinophils % 1.4 Basophils % 0.7 Nucleated RBC % 0 Sodium 138 Potassium 3.3 L Chloride 98 Carbon Dioxide 34 H Anion Gap 7 L BUN 27.5 H Creatinine 1.3 Est GFR (CKD-EPI)AfAm 55.01 Est GFR (CKD-EPI)NonAf 47.46 Random Glucose 89 Calcium 9.1 Phosphorus Magnesium Total Bilirubin 0.3 AST 22 ALT 29 Alkaline Phosphatase 117 Creatine Kinase 85 Troponin I < 0.02 Total Protein 7.8 Albumin 3.8 Triglycerides Cholesterol Total LDL Cholesterol HDL Cholesterol TSH Urine Color Yellow Urine Appearance Clear Urine pH 8.0 D Ur Specific [place] 1.004 L Urine Protein Negative Urine Glucose (UA) Negative Urine Ketones Negative Urine Blood Negative Urine Nitrite Negative Urine Bilirubin Negative Urine Urobilinogen 0.2 Ur Leukocyte Esterase Negative 01/04/20 01/04/20 01/04/20 06:00 06:00 06:00 WBC 4.9 RBC 3.73 Hgb 10.6 L Hct 31.1 L MCV 83.3 MCH 28.4 MCHC 34.1 RDW 14.3 Plt Count 251 MPV 8.5 Absolute Neuts (auto) Neutrophils % Lymphocytes % Monocytes % Eosinophils % Basophils % Nucleated RBC % Sodium 142 Potassium 3.3 L Chloride 103 Carbon Dioxide 33 H Anion Gap 5 L BUN 21.6 H Creatinine 1.2 Est GFR (CKD-EPI)AfAm 60.60 Est GFR (CKD-EPI)NonAf 52.28 Random Glucose 85 Calcium 8.7 Phosphorus 3.7 Magnesium 2.2 Total Bilirubin AST ALT Alkaline Phosphatase Creatine Kinase Troponin I Total Protein Albumin Triglycerides 70 Cholesterol 201 H Total LDL Cholesterol 126 H HDL Cholesterol 51 TSH 0.49 Urine Color Urine Appearance Urine pH Ur Specific [place] Urine Protein Urine Glucose (UA) Urine Ketones Urine Blood Urine Nitrite Urine Bilirubin Urine Urobilinogen Ur Leukocyte Esterase Active Medications Generic Name Dose Route Start Last Admin Trade Name Freq PRN Reason Stop Dose Admin Albuterol/Ipratropium 1 amp 01/03/20 18:13 Duoneb - NEB Q4H PRN WHEEZING Amlodipine Besylate 10 mg 01/04/20 10:00 Norvasc - PO DAILY JOAN Atorvastatin Calcium 40 mg 01/04/20 22:00 Lipitor - PO HS JOAN Budesonide/Formoterol Fumarate 2 puff 01/03/20 22:00 01/03/20 23:37 Symbicort 160/4.5mcg - IH 2 puff BID JOAN Administration Diazepam 2 mg 01/04/20 22:00 Valium - PO HS JOAN Enoxaparin Sodium 40 mg 01/04/20 10:00 Lovenox - SQ DAILY JOAN Famotidine 40 mg 01/04/20 10:00 Pepcid - PO DAILY JOAN Hydralazine HCl 25 mg 01/03/20 22:00 01/03/20 23:13 Apresoline - PO Not Given BID JOAN Lactated Ringer's 1,000 ml in 1,000 mls @ 75 mls/hr 01/03/20 18:00 01/03/20 19:53 Lactated Ringers Solution IV 75 mls/hr ASDIR JOAN Administration Losartan Potassium 100 mg 01/03/20 22:00 01/03/20 23:13 Cozaar - PO Not Given HS JOAN Meclizine HCl 25 mg 01/04/20 07:14 Antivert - PO BID PRN VERTIGO Potassium Chloride 40 meq 01/04/20 07:10 K-Dur - PO 01/04/20 07:11 ONCE ONE ASSESSMENT/PLAN: This is a 49 y/o F with a PMHx of HTN, HLD, GERD, asthma, anemia, glaucoma who p/w dizziness while at work today. Pt admits to having a stomach virus X 5 days associated with n,v,watery diarrhea, subjective fevers, chills, body aches, and generalized weakness. This AM pt noted she felt better and decided to go to work. She is a middle school resource teacher. #Dizziness - likely 2/2 viral labrynthitis vs vertigo vs volume depleted from vomiting/diarrhea fall risk precautions PT eval, likely benefit from vestibular rehab Neuro consulted (Dr. Schwab) MRI ordered to assess inner ear will f/u report today orthostatic vitals negative c/w IV LR 75/hr - Echo in 10/21 showing EF-55-60%, impaired LV relaxation, moderate calcified AV - stress test normal 2017 - carotid US ordered given 2nd episode of vertigo and generalized weakness CT head negative for acute intracranial pathology antivert given in ED will continue 25mg - TSH nl, Mg normal, Po4 normal #Hypokalemia - likely 2/2 diarrhea combined with chlorthalidone use - 40 Kdur given - pt has not been taking her Kcl as prescribed #Asthma - continued home inhalers - duonebs PRN for wheezing - o/p pft's - not in exacerbation at this time #HTN - Hold chlorthalidone - continue norvasc, hydralazine BID, losartan 100 - added metoprolol 12.5 daily today #HLD - not on statin - lipid panel elevated cholesterol, LDL, normal HDL - ASCVD risk 7.8% so will start lipitor 40 and rpt LFT's w PCP after dc #GERD - FAMOTIDINE 40daily DVT ppx: Lovenox 40 SQ Visit type - Emergency Visit Emergency Visit: Yes ED Registration Date: 01/03/20 Care time: The patient presented to the Emergency Department on the above date and was hospitalized for further evaluation of their emergent condition. - New Patient This patient is new to me today: No - Critical Care Critical Care patient: No - Discharge Referral Referred to [facility] No ATTENDING PHYSICIAN STATEMENT I saw and evaluated the patient. I reviewed the resident's note and discussed the case with the resident. I agree with the resident's findings and plan as documented. SUBJECTIVE: OBJECTIVE: ASSESSMENT AND PLAN:
[2020-01-04] MEDS: amLODIPine BESYLATE 10 MG TABLET (FP) PO SCH (09:00)
[2020-01-04] MEDS: hydrALAZINE HCL 25 MG TABLET (FP) PO SCH ×2 (09:00→21:22)
[2020-01-04] MEDS: MECLIZINE HCL 25 MG TABLET (FP) PO PRN ×2 (09:00→21:22)
[2020-01-04] MEDS: ENOXAPARIN NA (PORCINE) 40 MG/0.4 ML DISP.SYRIN SQ SCH (09:01)
[2020-01-04] MEDS ORDERED: PT OWN MED DRAWER 7, Y5N ONE (09:47)
[2020-01-04] MEDS ORDERED: PATIENT'S OWN MEDICATION (NON-FORMULARY) (Famotidine 40 MG) PO SCH (10:00)
[2020-01-04] MEDS: FAMOTIDINE 40 MG TABLET PO SCH (10:20)
--- NOTE | 2020-01-04 11:54 | PN ---
Teaching Attending Note Name of Resident: Remi Andrade ATTENDING PHYSICIAN STATEMENT I saw and evaluated the patient. I reviewed the resident's note and discussed the case with the resident. I agree with the resident's findings and plan as documented. SUBJECTIVE: Patient says she feels less dizzy today. She feels generally weak. OBJECTIVE: Vital Signs Period Temp Pulse Resp BP Sys/Stark Pulse Ox Last 24 Hr 97.6 F-98.7 F 60-75 12-18 118-160/75-93 96-100 HEART: S1S2, RRR LUNGS: Clear ABDOMEN: Obese, soft, non-tender, non-distended, normal BS EXTREMITIES: No edema NEUROLOGICAL: Non-focal Laboratory Results - last 24 hr 01/03/20 01/03/20 01/03/20 12:38 13:00 13:00 WBC 7.0 RBC 3.95 Hgb 11.3 Hct 33.1 MCV 83.7 MCH 28.6 MCHC 34.1 RDW 14.0 Plt Count 282 MPV 8.7 Absolute Neuts (auto) 4.6 Neutrophils % 66.7 Lymphocytes % 21.6 D Monocytes % 9.6 Eosinophils % 1.4 Basophils % 0.7 Nucleated RBC % 0 Sodium 138 Potassium 3.3 L Chloride 98 Carbon Dioxide 34 H Anion Gap 7 L BUN 27.5 H Creatinine 1.3 Est GFR (CKD-EPI)AfAm 55.01 Est GFR (CKD-EPI)NonAf 47.46 Random Glucose 89 Calcium 9.1 Phosphorus Magnesium Total Bilirubin 0.3 AST 22 ALT 29 Alkaline Phosphatase 117 Creatine Kinase 85 Troponin I < 0.02 Total Protein 7.8 Albumin 3.8 Triglycerides Cholesterol Total LDL Cholesterol HDL Cholesterol TSH Urine Color Yellow Urine Appearance Clear Urine pH 8.0 D Ur Specific [place] 1.004 L Urine Protein Negative Urine Glucose (UA) Negative Urine Ketones Negative Urine Blood Negative Urine Nitrite Negative Urine Bilirubin Negative Urine Urobilinogen 0.2 Ur Leukocyte Esterase Negative 01/04/20 01/04/20 01/04/20 06:00 06:00 06:00 WBC 4.9 RBC 3.73 Hgb 10.6 L Hct 31.1 L MCV 83.3 MCH 28.4 MCHC 34.1 RDW 14.3 Plt Count 251 MPV 8.5 Absolute Neuts (auto) Neutrophils % Lymphocytes % Monocytes % Eosinophils % Basophils % Nucleated RBC % Sodium 142 Potassium 3.3 L Chloride 103 Carbon Dioxide 33 H Anion Gap 5 L BUN 21.6 H Creatinine 1.2 Est GFR (CKD-EPI)AfAm 60.60 Est GFR (CKD-EPI)NonAf 52.28 Random Glucose 85 Calcium 8.7 Phosphorus 3.7 Magnesium 2.2 Total Bilirubin AST ALT Alkaline Phosphatase Creatine Kinase Troponin I Total Protein Albumin Triglycerides 70 Cholesterol 201 H Total LDL Cholesterol 126 H HDL Cholesterol 51 TSH 0.49 Urine Color Urine Appearance Urine pH Ur Specific [place] Urine Protein Urine Glucose (UA) Urine Ketones Urine Blood Urine Nitrite Urine Bilirubin Urine Urobilinogen Ur Leukocyte Esterase Current Medications Generic Name Dose Route Start Last Admin Trade Name Freq PRN Reason Stop Dose Admin Albuterol/Ipratropium 1 amp 01/03/20 18:13 01/04/20 09:01 Duoneb - NEB 1 amp Q4H PRN Administration WHEEZING Amlodipine Besylate 10 mg 01/04/20 10:00 01/04/20 09:00 Norvasc - PO 10 mg DAILY JOAN Administration Atorvastatin Calcium 40 mg 01/04/20 22:00 Lipitor - PO HS JOAN Budesonide/Formoterol Fumarate 2 puff 01/03/20 22:00 01/03/20 23:37 Symbicort 160/4.5mcg - IH 2 puff BID JOAN Administration Diazepam 2 mg 01/04/20 22:00 Valium - PO HS JOAN Enoxaparin Sodium 40 mg 01/04/20 10:00 01/04/20 09:01 Lovenox - SQ 40 mg DAILY JOAN Administration Famotidine 40 mg 01/04/20 10:00 Pepcid - PO DAILY JOAN Hydralazine HCl 25 mg 01/03/20 22:00 01/04/20 09:00 Apresoline - PO 25 mg BID JOAN Administration Lactated Ringer's 1,000 ml in 1,000 mls @ 75 mls/hr 01/03/20 18:00 01/03/20 19:53 Lactated Ringers Solution IV 75 mls/hr ASDIR JOAN Administration Losartan Potassium 100 mg 01/03/20 22:00 01/03/20 23:13 Cozaar - PO Not Given HS JOAN Meclizine HCl 25 mg 01/04/20 07:14 01/04/20 09:00 Antivert - PO 25 mg BID PRN Administration VERTIGO ASSESSMENT AND PLAN: This is a 49 year old woman with a history of HTN, hyperlipidemia, asthma, JENNIFER, anemia, glaucoma who presented to the ED with dizziness. 1. Labyrinthitis - Head CT unremarkable - Carotid dopplers unremarkable - MRI of brain ordered - Continue meclizine as needed - Continue to hold Chlorthalidone 2. Dehydration - Continue to hold Chlorthalidone - IV fluid - Monitor BUN, creatinine 3. HTN - Continue Norvasc, Losartan, Hydralazine - Chlorthalidone held secondary to dehydration 4. Hyperlipidemia - Continue Lipitor 5. Asthma - Stable - Continue Symbicort 6. JENNIFER 7. Obesity with BMI 33.2
[2020-01-04] MEDS ORDERED: LORazepam 2 MG/ML SDV VIAL IVPUSH ONE (12:45)
[2020-01-04] MEDS: BUDESONIDE/FORMETEROL FUMARATE 160/4.5 mcg INHALER IH SCH ×2 (14:52→21:22)
[2020-01-04] MEDS: metoPROLOL SUCCINATE 25 MG TAB.SR.24H (FP) PO SCH (14:52)
[2020-01-04] MEDS: LACTATED RINGERS SOLUTION 1,000 ML/1,000 ML INFUS.BAG IV SCH (18:21)
--- NOTE | 2020-01-04 18:54 | PN ---
Progress Note, Physician History of Present Illness: doing better No complaints Feels less dizzy Slight BP elevated - Current Medication List Current Medications: Active Medications Albuterol/Ipratropium (Duoneb -) 1 amp NEB Q4H PRN PRN Reason: WHEEZING Last Admin: 01/04/20 09:01 Dose: 1 amp Amlodipine Besylate (Norvasc -) 10 mg PO DAILY [facility] Last Admin: 01/04/20 09:00 Dose: 10 mg Atorvastatin Calcium (Lipitor -) 40 mg PO HS [facility] Budesonide/Formoterol Fumarate (Symbicort 160/4.5mcg -) 2 puff IH BID [facility] Last Admin: 01/04/20 14:52 Dose: 2 puff Diazepam (Valium -) 2 mg PO HS [facility] Enoxaparin Sodium (Lovenox -) 40 mg SQ DAILY [facility] Last Admin: 01/04/20 09:01 Dose: 40 mg Famotidine (Pepcid -) 40 mg PO DAILY [facility] Last Admin: 01/04/20 10:20 Dose: 40 mg Hydralazine HCl (Apresoline -) 25 mg PO BID [facility] Last Admin: 01/04/20 09:00 Dose: 25 mg Lactated Ringer's (Lactated Ringers Solution) 1,000 ml in 1,000 mls @ 75 mls/ hr IV ASDIR [facility] Last Admin: 01/04/20 18:21 Dose: 75 mls/hr Lorazepam (Ativan Injection -) 2 mg IVPUSH ONCE ONE Stop: 01/04/20 14:36 Losartan Potassium (Cozaar -) 100 mg PO [facility] Last Admin: 01/03/20 23:13 Dose: Not Given Meclizine HCl (Antivert -) 25 mg PO BID PRN PRN Reason: VERTIGO Last Admin: 01/04/20 09:00 Dose: 25 mg Metoprolol Succinate (Toprol Xl -) 12.5 mg PO DAILY [facility] Last Admin: 01/04/20 14:52 Dose: 12.5 mg - Objective Vital Signs: Vital Signs Temperature 98.2 F 01/04/20 17:00 Pulse Rate 70 01/04/20 09:00 Respiratory Rate 18 01/04/20 17:00 Blood Pressure 128/68 01/04/20 17:00 O2 Sat by Pulse Oximetry (%) 100 01/03/20 21:19 Constitutional: Yes: Well Nourished Eyes: Yes: WNL HENT: Yes: WNL Neurological: Yes: Alert, Oriented, Babinski negative ...Motor Strength: WNL Labs: CBC, BMP 01/04/20 06:00 01/04/20 06:00 Problem List - Problems (1) Vertigo Assessment/Plan: 1. Tight Bp control 2. OOB to chart 3. fall precautions Code(s): R42 - DIZZINESS AND GIDDINESS
[2020-01-04] MEDS: LOSARTAN POTASSIUM 50 MG TABLET (FP) PO SCH (21:22)
[2020-01-04] MEDS ORDERED: diazePAM 2 MG TABLET PO SCH (22:00)
[2020-01-04] MEDS ORDERED: ATORVASTATIN CA 40 MG TABLET (FP) PO SCH (22:00)
[2020-01-05 06:31] LABS: BASO % 0.6 % (0-2.0); EOS % 2.2 % (0-4.5); HEMATOCRIT 30.6 % (32.4-45.2); HEMOGLOBIN 10.3 GM/dL (10.7-15.3); LYMPH % 30.8 % (8-40); MCH 28.5 pg (25.7-33.7); MCHC 33.8 g/dl (32.0-36.0); MEAN CELL VOLUME 84.1 fl (80-96); MEAN PLT VOLUME 8.7 fl (7.5-11.1); MONO % 9.6 % (3.8-10.2); NEUT % 56.8 % (42.8-82.8); PLATELET COUNT 263 K/MM3 (134-434); RBC 3.64 M/mm3 (3.60-5.2); RDW 13.9 % (11.6-15.6); WHITE BLOOD COUNT 5.5 K/mm3 (4.0-10.0)
[2020-01-05] MEDS: LACTATED RINGERS SOLUTION 1,000 ML/1,000 ML INFUS.BAG IV SCH (07:02)
[2020-01-05 07:04] LABS: ALBUMIN 3.1 g/dl (3.4-5.0); BILIRUBIN,TOTAL 0.5 mg/dL (0.2-1); BLOOD UREA NITROGEN 19.1 mg/dL (7-18); CALCIUM 8.7 mg/dL (8.5-10.1); CREATININE 1.1 mg/dL (0.55-1.3); POTASSIUM 3.3 mmol/L (3.5-5.1); TOT PROT 6.5 g/dl (6.4-8.2)
[2020-01-05] MEDS: KCL 10 MEQ IVPB 10 MEQ/100 ML INFUS.BAG IVPB SCH ×3 (08:57→12:10)
[2020-01-05 09:01] VITALS: TEMP 98.1
[2020-01-05] MEDS: FAMOTIDINE 40 MG TABLET PO SCH (10:10)
[2020-01-05] MEDS: hydrALAZINE HCL 25 MG TABLET (FP) PO SCH (10:11)
[2020-01-05] MEDS: ENOXAPARIN NA (PORCINE) 40 MG/0.4 ML DISP.SYRIN SQ SCH (10:12)
[2020-01-05] MEDS: metoPROLOL SUCCINATE 25 MG TAB.SR.24H (FP) PO SCH (10:21)
[2020-01-05] MEDS: amLODIPine BESYLATE 10 MG TABLET (FP) PO SCH (10:21)
[2020-01-05] MEDS: BUDESONIDE/FORMETEROL FUMARATE 160/4.5 mcg INHALER IH SCH (10:21)
--- NOTE | 2020-01-05 11:11 | PN ---
Teaching Attending Note Name of Resident: Remi Andrade ATTENDING PHYSICIAN STATEMENT I saw and evaluated the patient. I reviewed the resident's note and discussed the case with the resident. I agree with the resident's findings and plan as documented. SUBJECTIVE: Patient feels much better. Ambulated to bathroom without difficulty. OBJECTIVE: Vital Signs Period Temp Pulse Resp BP Sys/Stark Pulse Ox Last 24 Hr 97.6 F-98.4 F 66-79 18-20 126-145/68-94 97-99 HEART: S1S2, RRR LUNGS: Clear ABDOMEN: Obese, soft, non-tender, non-distended, normal BS EXTREMITIES: No edema NEUROLOGICAL: Non-focal Laboratory Results - last 24 hr 01/05/20 01/05/20 05:45 05:45 WBC 5.5 RBC 3.64 Hgb 10.3 L Hct 30.6 L MCV 84.1 MCH 28.5 MCHC 33.8 RDW 13.9 Plt Count 263 MPV 8.7 Absolute Neuts (auto) 3.1 Neutrophils % 56.8 Lymphocytes % 30.8 D Monocytes % 9.6 Eosinophils % 2.2 Basophils % 0.6 Nucleated RBC % 0 Sodium 141 Potassium 3.3 L Chloride 104 Carbon Dioxide 32 Anion Gap 6 L BUN 19.1 H Creatinine 1.1 Est GFR (CKD-EPI)AfAm 67.32 Est GFR (CKD-EPI)NonAf 58.08 Random Glucose 78 Calcium 8.7 Total Bilirubin 0.5 AST 14 L ALT 24 Alkaline Phosphatase 99 Total Protein 6.5 Albumin 3.1 L Current Medications Generic Name Dose Route Start Last Admin Trade Name Freq PRN Reason Stop Dose Admin Albuterol/Ipratropium 1 amp 01/03/20 18:13 01/04/20 09:01 Duoneb - NEB 1 amp Q4H PRN Administration WHEEZING Amlodipine Besylate 10 mg 01/04/20 10:00 01/05/20 10:21 Norvasc - PO 10 mg DAILY JOAN Administration Atorvastatin Calcium 40 mg 01/04/20 22:00 01/04/20 21:22 Lipitor - PO 40 mg HS JOAN Administration Budesonide/Formoterol Fumarate 2 puff 01/03/20 22:00 01/05/20 10:21 Symbicort 160/4.5mcg - IH 2 puff BID JOAN Administration Diazepam 2 mg 01/04/20 22:00 01/04/20 21:22 Valium - PO 2 mg HS JOAN Administration Enoxaparin Sodium 40 mg 01/04/20 10:00 01/05/20 10:12 Lovenox - SQ 40 mg DAILY JOAN Administration Famotidine 40 mg 01/04/20 10:00 01/04/20 10:20 Pepcid - PO 40 mg DAILY JOAN Administration Hydralazine HCl 25 mg 01/03/20 22:00 01/05/20 10:11 Apresoline - PO 25 mg BID JOAN Administration Lactated Ringer's 1,000 ml in 1,000 mls @ 75 mls/hr 01/03/20 18:00 01/05/20 07:02 Lactated Ringers Solution IV 75 mls/hr ASDIR JOAN Administration Lorazepam 2 mg 01/04/20 14:35 Ativan Injection - IVPUSH 01/04/20 14:36 ONCE ONE Losartan Potassium 100 mg 01/03/20 22:00 01/04/20 21:22 Cozaar - PO 100 mg HS JOAN Administration Meclizine HCl 25 mg 01/04/20 07:14 01/04/20 21:22 Antivert - PO 25 mg BID PRN Administration VERTIGO Metoprolol Succinate 12.5 mg 01/04/20 12:15 01/05/20 10:21 Toprol Xl - PO 12.5 mg DAILY JOAN Administration ASSESSMENT AND PLAN: This is a 49 year old woman with a history of HTN, hyperlipidemia, asthma, JENNIFER, anemia, glaucoma who presented to the ED with dizziness. 1. Labyrinthitis - Improved - Head CT unremarkable - Carotid dopplers unremarkable - MRI of brain ordered - Continue meclizine as needed - Continue to hold Chlorthalidone 2. Dehydration - Improved - Continue to hold Chlorthalidone - Discontinue IV fluid - Continue to monitor BUN, creatinine 3. HTN - Continue Norvasc, Cozaar, Hydralazine - Chlorthalidone held secondary to dehydration - Toprol XL added 4. Hyperlipidemia - Continue Lipitor 5. Asthma - Stable - Continue Symbicort 6. JENNIFER 7. Obesity with BMI 33.2 8. Hypokalemia - Continue to hold Chlorthalidone - Replete potassium 9. Disposition - PT evaluation - If she does well with PT and MRI ok, will discharge
[2020-01-05] MEDS ORDERED: LORazepam 2 MG/ML SDV VIAL ONE (12:46)
[2020-01-05 13:06] VITALS: BP 103/65; PULSE 76
--- NOTE | 2020-01-05 13:46 | DS ---
Physical Exam: SUBJECTIVE: Patient seen and examined at bedside. No acute events overnight. No longer dizzy or hypertensive. OBJECTIVE: Vital Signs Period Temp Pulse Resp BP Sys/Stark Pulse Ox Last 24 Hr 98.1 F-98.4 F 66-79 18-20 103-145/65-94 97-99 PHYSICAL EXAM GENERAL: The patient is awake, alert, and fully oriented, in no acute distress. LUNGS: Breath sounds equal, clear to auscultation bilaterally, no wheezes, no crackles, no accessory muscle use. HEART: Regular rate and rhythm, S1, S2 without murmur, rub or gallop. ABDOMEN: Soft, nontender, nondistended, normoactive bowel sounds, no guarding, no rebound, no hepatosplenomegaly, no masses. EXTREMITIES: 2+ pulses, warm, well-perfused, no edema. NEUROLOGICAL: Cranial nerves II through XII grossly intact. Normal speech, gait not observed. Pt's generalized weakness improved, good power and tone b/l upper and lower extremities. LABS Laboratory Results - last 24 hr 01/05/20 01/05/20 05:45 05:45 WBC 5.5 RBC 3.64 Hgb 10.3 L Hct 30.6 L MCV 84.1 MCH 28.5 MCHC 33.8 RDW 13.9 Plt Count 263 MPV 8.7 Absolute Neuts (auto) 3.1 Neutrophils % 56.8 Lymphocytes % 30.8 D Monocytes % 9.6 Eosinophils % 2.2 Basophils % 0.6 Nucleated RBC % 0 Sodium 141 Potassium 3.3 L Chloride 104 Carbon Dioxide 32 Anion Gap 6 L BUN 19.1 H Creatinine 1.1 Est GFR (CKD-EPI)AfAm 67.32 Est GFR (CKD-EPI)NonAf 58.08 Random Glucose 78 Calcium 8.7 Total Bilirubin 0.5 AST 14 L ALT 24 Alkaline Phosphatase 99 Total Protein 6.5 Albumin 3.1 L HOSPITAL COURSE: Date of Admission:01/03/20 This is a 49 y/o F with a PMHx of HTN, HLD, GERD, asthma, anemia, glaucoma who was admitted for dizziness associated with stomach virus X 5 days associated with n,v,watery diarrhea, subjective fevers, chills, body aches, and generalized weakness. Pt likely had a viral labrynthitis vs volume depletion due to chlorthalidone. Pt instructed to dc chlorthalidone and given supportive therapy and meclizine prn for dizziness resulting in improvement in her symptoms. We started her on lipitor 40 and metoprolol 12.5 bc she was hypertensive to 160's systolic while off chlorthalidone. She had an echo in 10/21 showing EF-55-60%, impaired LV relaxation, moderate calcified AV, stress test nl in 2018, and a negative carotid US this admission. CT head was negative for acute pathology as well. Pt was instructed to follow up with Dr. Arredondo for open MRI as she was unable to tolerate the machine here despite being given 2mg Ativan. Pt was instructed to return to the ER if she has any acute worsening of her current symptoms. Date of Discharge: 01/05/20 Minutes to complete discharge: 35 Discharge Summary Problems reviewed: Yes Reason For Visit: VERTIGO Current Active Problems Vertigo (Acute) Condition: Good - Instructions Diet, Activity, Other Instructions: You were admitted for dizziness. We monitored you while you were here and had a neurologist (Dr. Nelson) come see you and believes you are stable enough for discharge. You were unable to have the MRI done here so please have a follow up open MRI as per your neurologists preference. You had elevated blood pressure while here so we added a medication for you. You had high cholesterol on blood work here so we started you on a cholesterol lowering medication. Medication we added while you were here: Please START taking Lipitor 40 mg once a day for your high cholesterol. Please follow up with your primary care physician to have your liver enzymes checked in 2 weeks after being started on this medication. Please START taking Metoprolol 12.5 mg once daily by mouth for your high blood pressure. Medication we discontinued while here: Please STOP taking Chlorthalidone as it may be the cause of your dizziness. Follow ups: Please follow up with your primary care physician in 1 week (Dr. Albert). Please follow up with your neurologist (Dr. Arredondo) in 1 week after you are discharged. Recommendations: Please increase your banana intake given that your potassium was low while here and or try to sampler pickup over the counter potassium supplement. Thank you and pleas return to the ER if you have any worsening of your current condition. Referrals: Tiffanie Albert MD [Primary Care Provider] - 1 Week Manjit Nelson MD [Staff Physician] - 1 Week Disposition: HOME - Home Medications Comprehensive Discharge Medication List: Ambulatory Orders Amlodipine Besylate [Norvasc -] 10 mg PO DAILY #30 tablet 04/02/18 Hydralazine HCl 25 mg PO BID 01/12/19 Budesonide/Formeterol Fumarate [SYMBICORT 160/4.5mcg -] 2 puff IH BID 08/24/19 Famotidine [Pepcid -] 40 mg DAILY 10/29/19 Losartan Potassium 100 mg PO HS 01/03/20 Atorvastatin Ca [Lipitor] 40 mg PO HS #30 tablet 01/05/20 Meclizine HCl [Antivert -] 25 mg PO BID PRN #14 tablet 01/05/20 Metoprolol Succinate [Toprol XL -] 12.5 mg PO DAILY #30 tab.sr.24h 01/05/20 This patient is new to me today: No Emergency Visit: Yes ED Registration Date: 01/03/20 Care time: The patient presented to the Emergency Department on the above date and was hospitalized for further evaluation of their emergent condition. Critical Care patient: No - Discharge Referral Referred to [facility] Med P.C.: No ATTENDING PHYSICIAN STATEMENT I saw and evaluated the patient. I reviewed the resident's note and discussed the case with the resident. I agree with the resident's findings and plan as documented. SUBJECTIVE: OBJECTIVE: ASSESSMENT AND PLAN:
== END 2020-01-05 16:56 | disposition home or self-care (01) ==
LOC: JER 11:24 → JERBED 16:21 → INTOOBSV 16:21 → J2W 21:42
PROVIDERS: ATTEND Internal Medicine
PROC: 3E033GC Introduction of Other Therapeutic Substance into Peripheral Vein, Percutaneous Approach (ICD-10-PCS; principal; 2020-01-03)
PROC: 3E0337Z Introduction of Electrolytic and Water Balance Substance into Peripheral Vein, Percutaneous Approach (ICD-10-PCS; 2020-01-03)
PROC: 3E013GC Introduction of Other Therapeutic Substance into Subcutaneous Tissue, Percutaneous Approach (ICD-10-PCS; 2020-01-03)
PROC: 3E0F7GC Introduction of Other Therapeutic Substance into Respiratory Tract, Via Natural or Artificial Opening (ICD-10-PCS; 2020-01-03)
DX: R42 Dizziness and giddiness (principal); H83.09 Labyrinthitis, unspecified ear; I10 Essential (primary) hypertension; E78.5 Hyperlipidemia, unspecified; K21.9 Gastro-esophageal reflux disease without esophagitis; J45.909 Unspecified asthma, uncomplicated; G47.33 Obstructive sleep apnea (adult) (pediatric); D64.9 Anemia, unspecified; H40.9 Unspecified glaucoma; E87.6 Hypokalemia; E86.0 Dehydration; E66.9 Obesity, unspecified; Z68.33 Body mass index [BMI] 33.0-33.9, adult; Z88.5 Allergy status to narcotic agent; Z88.6 Allergy status to analgesic agent
CPT/HCPCS: 36415; 70450-TC; 71046-TC-FY; 80048; 80053; 80061; 81003; 82550; 83721; 83735; 84100; 84443; 84484; 85025; 85027; 93005; 93010; 93880-TC; 94640; 97116-GP; 97161-GP; 99285-25; G0378; J7030

== ENCOUNTER 2022-01-08 12:07 | Emergency (ER) | payer BC, SELFPAY ==
[2022-01-08 12:20] VITALS: BP 116/69; PULSE 80; TEMP 98.4; BMI 29.2
[2022-01-08] MEDS ORDERED: ALBUTEROL SO4 2.5/IPRATROPIUM 0.5 INH SOL 3 ML VIAL.NEB. NEB ONE (13:24)
== END 2022-01-08 14:22 | disposition home or self-care (01) ==
LOC: JER 12:07
PROC: 3E0F7GC Introduction of Other Therapeutic Substance into Respiratory Tract, Via Natural or Artificial Opening (ICD-10-PCS; principal; 2022-01-08)
DX: J45.901 Unspecified asthma with (acute) exacerbation (principal)
CPT/HCPCS: 99283-25

== ENCOUNTER 2022-09-14 11:48 | Inpatient (IN) | payer BC ==
[2022-09-14] MEDS ORDERED: ALBUTEROL SO4 2.5/IPRATROPIUM 0.5 INH SOL 3 ML VIAL.NEB. NEB ONE (12:39)
[2022-09-14] MEDS: ALBUTEROL SO4 2.5/IPRATROPIUM 0.5 INH SOL 3 ML VIAL.NEB. NEB SCH ×3 (12:56→13:21)
[2022-09-14] MEDS ORDERED: DEXAMETHASONE SOD PHOSPHATE 10 MG/1 ML VIAL IVPUSH ONE (13:02)
[2022-09-14] MEDS ORDERED: DEXAMETHASONE SOD PHOSPHATE 10 MG/1 ML VIAL ONE (13:22)
[2022-09-14 13:39] LABS: BASO % 0.5 % (0-2.0); EOS % 3.1 % (0-4.5); HEMATOCRIT 36.8 % (32.4-45.2); LYMPH % 23.1 % (8-40); MCH 27.6 pg (25.7-33.7); MCHC 32.6 g/dl (32.0-36.0); MEAN CELL VOLUME 84.5 fl (80-96); MEAN PLT VOLUME 9.1 fl (7.5-11.1); NEUT % 62.3 % (42.8-82.8); PLATELET COUNT 234 10^3/uL (134-434); RBC 4.36 M/mm3 (3.60-5.2); RDW 14.4 % (11.6-15.6); WHITE BLOOD COUNT 5.4 K/mm3 (4.0-10.0)
[2022-09-14 14:12] LABS: ALBUMIN 3.9 g/dl (3.4-5.0); BILIRUBIN,TOTAL 0.7 mg/dL (0.2-1); BLOOD UREA NITROGEN 25.2 mg/dL (7-18); CALCIUM 8.9 mg/dL (8.5-10.1); CREATININE 1.4 mg/dL (0.55-1.3); TOT PROT 8.1 g/dl (6.4-8.2)
[2022-09-14] MEDS ORDERED: LACTATED RINGERS SOLUTION 1000 ML INFUS.BAG IV ONE (14:32)
[2022-09-14] MEDS ORDERED: ALBUTEROL SO4 HFA INHALER IH PRN (15:37)
[2022-09-14] MEDS ORDERED: MECLIZINE HCL 25 MG TABLET (FP) PO PRN (15:37)
[2022-09-14] MEDS ORDERED: ACETAMINOPHEN 325 MG TABLET (FP) PO PRN (15:39)
[2022-09-14] MEDS: methylPREDNISolone NA SUCC 40 MG/1 ML VIAL IVPB SCH (17:37)
[2022-09-14] MEDS ORDERED: methylPREDNISolone NA SUCC 40 MG/1 ML VIAL ONE (17:48)
[2022-09-14] MEDS ORDERED: ATORVASTATIN CA 40 MG TABLET (FP) ONE (21:01)
[2022-09-14] MEDS ORDERED: hydrALAZINE HCL 25 MG TABLET (FP) ONE (21:01)
[2022-09-14] MEDS ORDERED: LOSARTAN POTASSIUM 50 MG TABLET ONE ×2 (21:01→21:03)
[2022-09-14] MEDS: LOSARTAN POTASSIUM 50 MG TABLET PO SCH (21:07)
[2022-09-14] MEDS: ATORVASTATIN CA 40 MG TABLET (FP) PO SCH (21:07)
[2022-09-14] MEDS: hydrALAZINE HCL 25 MG TABLET (FP) PO SCH (21:07)
[2022-09-14] MEDS: BUDESONIDE/FORMETEROL FUMARATE 160/4.5 mcg INHALER IH SCH (22:32)
[2022-09-14] MEDS: ALBUTEROL SO4 2.5/IPRATROPIUM 0.5 INH SOL 3 ML VIAL.NEB. NEB PRN (22:36)
[2022-09-15 01:14] VITALS: BMI 33.4
[2022-09-15] MEDS: methylPREDNISolone NA SUCC 40 MG/1 ML VIAL IVPB SCH ×3 (02:01→18:44)
[2022-09-15] MEDS: ALBUTEROL SO4 2.5/IPRATROPIUM 0.5 INH SOL 3 ML VIAL.NEB. NEB PRN ×3 (07:27→15:21)
[2022-09-15 09:55] LABS: BASO % 0.1 % (0-2.0); HEMOGLOBIN 11.2 GM/dL (10.7-15.3); LYMPH % 10.1 % (8-40); MCH 28.6 pg (25.7-33.7); MEAN CELL VOLUME 84.1 fl (80-96); MEAN PLT VOLUME 8.5 fl (7.5-11.1); MONO % 1.4 % (3.8-10.2); NEUT % 88.4 % (42.8-82.8); PLATELET COUNT 204 10^3/uL (134-434); RBC 3.93 M/mm3 (3.60-5.2); RDW 14.2 % (11.6-15.6)
[2022-09-15 09:59] LABS: CALCIUM 9.1 mg/dL (8.5-10.1)
[2022-09-15 10:00] LABS: ALBUMIN 3.5 g/dl (3.4-5.0); BLOOD UREA NITROGEN 27.5 mg/dL (7-18)
[2022-09-15] MEDS ORDERED: metoPROLOL SUCCINATE 25 MG TAB.SR.24H (FP) PO SCH (10:00)
[2022-09-15 10:02] LABS: CREATININE 1.2 mg/dL (0.55-1.3)
[2022-09-15 10:03] LABS: BILIRUBIN,TOTAL 0.4 mg/dL (0.2-1)
[2022-09-15 10:04] LABS: TOT PROT 7.5 g/dl (6.4-8.2)
[2022-09-15] MEDS: BUDESONIDE/FORMETEROL FUMARATE 160/4.5 mcg INHALER IH SCH ×2 (10:44→22:10)
[2022-09-15] MEDS: hydrALAZINE HCL 25 MG TABLET (FP) PO SCH ×3 (10:45→22:09)
[2022-09-15] MEDS: FAMOTIDINE 20 MG TABLET PO SCH (10:45)
[2022-09-15] MEDS: ENOXAPARIN NA (PORCINE) 40 MG/0.4 ML DISP.SYRIN SQ SCH (10:46)
[2022-09-15] MEDS: amLODIPine BESYLATE 10 MG TABLET (FP) PO SCH (10:46)
[2022-09-15] MEDS ORDERED: metoPROLOL SUCCINATE 25 MG TAB.SR.24H (FP) PO ONE (13:22)
[2022-09-15] MEDS: LOSARTAN POTASSIUM 50 MG TABLET PO SCH (22:09)
[2022-09-15] MEDS: ATORVASTATIN CA 40 MG TABLET (FP) PO SCH (22:10)
[2022-09-15 22:12] VITALS: RESP 20
[2022-09-16] MEDS: methylPREDNISolone NA SUCC 40 MG/1 ML VIAL IVPB SCH ×2 (01:27→09:48)
[2022-09-16] MEDS: hydrALAZINE HCL 25 MG TABLET (FP) PO SCH (05:57)
[2022-09-16 09:13] LABS: HEMATOCRIT 35.9 % (32.4-45.2); HEMOGLOBIN 11.8 GM/dL (10.7-15.3); MCH 27.6 pg (25.7-33.7); MCHC 32.9 g/dl (32.0-36.0); MEAN CELL VOLUME 83.9 fl (80-96); MEAN PLT VOLUME 9.1 fl (7.5-11.1); PLATELET COUNT 261 10^3/uL (134-434); RBC 4.28 M/mm3 (3.60-5.2); RDW 14.2 % (11.6-15.6); WHITE BLOOD COUNT 11.3 K/mm3 (4.0-10.0)
[2022-09-16 09:32] LABS: CALCIUM 9.2 mg/dL (8.5-10.1)
[2022-09-16 09:33] LABS: ALBUMIN 3.6 g/dl (3.4-5.0); BLOOD UREA NITROGEN 34.6 mg/dL (7-18)
[2022-09-16 09:37] LABS: BILIRUBIN,TOTAL 0.3 mg/dL (0.2-1); TOT PROT 7.8 g/dl (6.4-8.2)
[2022-09-16 09:38] LABS: CREATININE 1.3 mg/dL (0.55-1.3)
[2022-09-16 09:47] VITALS: BP 149/85; PULSE 78; TEMP 97.9
[2022-09-16] MEDS: ENOXAPARIN NA (PORCINE) 40 MG/0.4 ML DISP.SYRIN SQ SCH (09:48)
[2022-09-16] MEDS: amLODIPine BESYLATE 10 MG TABLET (FP) PO SCH (09:48)
[2022-09-16] MEDS: FAMOTIDINE 20 MG TABLET PO SCH (09:48)
[2022-09-16] MEDS: BUDESONIDE/FORMETEROL FUMARATE 160/4.5 mcg INHALER IH SCH (10:15)
[2022-09-16 11:50] LABS: ANISOCYTOSIS 0; HELMET CELLS 0; HOWELL-JOLLY BODIES 0; MACROCYTOSIS 0; OVALOCYTE 0; ROULEAU 0; SICKELED CELLS 0; TARGET CELLS 0; TEAR DROP CELLS 0; TOXIC GRANULATION 0
== END 2022-09-16 13:01 | disposition home or self-care (01) | DRG 203 ==
LOC: JER 11:48 → UNDOADMOB 14:05 → JERBED 14:05 → INTOOBSV 15:39 → OBSVTOIN 15:39 → JERBED 15:39 → J8W 21:56
PROVIDERS: ADMIT Internal Medicine; ATTEND Internal Medicine
DX: J45.901 Unspecified asthma with (acute) exacerbation (principal); I10 Essential (primary) hypertension; E78.5 Hyperlipidemia, unspecified; K21.9 Gastro-esophageal reflux disease without esophagitis; E66.9 Obesity, unspecified; Z68.33 Body mass index [BMI] 33.0-33.9, adult
CPT/HCPCS: 0241U-QW; 36415; 71045-TC-FY; 80053; 82962; 84484; 85025; 93005; 93010; 94010; 94640; 99285-25; J1100

== ENCOUNTER 2022-10-02 16:44 | Emergency (ER) | payer BC ==
[2022-10-02 16:57] VITALS: BP 150/89; PULSE 83; RESP 18; TEMP 98; BMI 32.8
[2022-10-02] MEDS ORDERED: ACETAMINOPHEN 500 MG TABLET (FP) ONE (17:49)
== END 2022-10-02 18:37 | disposition home or self-care (01) ==
LOC: JERFT 16:44
DX: S90.32XA Contusion of left foot, initial encounter (principal); W22.8XXA Striking against or struck by other objects, initial encounter
CPT/HCPCS: 73610-TC-LT-FY; 73630-TC-LT; 99283-25

== ENCOUNTER 2022-11-29 09:30 | Emergency (ER) | payer BC, SELFPAY ==
[2022-11-29 09:53] VITALS: BP 161/89; PULSE 77; RESP 20; TEMP 98.6; BMI 34.5
[2022-11-29] MEDS ORDERED: LIDOCAINE 5% TOPICAL PATCH TP ONE (10:13)
[2022-11-29] MEDS ORDERED: ACETAMINOPHEN 500 MG TABLET (FP) PO ONE (10:13)
[2022-11-29] MEDS ORDERED: LIDOCAINE 5% TOPICAL PATCH ONE (10:22)
[2022-11-29] MEDS ORDERED: ACETAMINOPHEN 500 MG TABLET (FP) ONE (10:23)
[2022-11-29] MEDS ORDERED: CYCLOBENZAPRINE HCL 10 MG TABLET (FP) PO ONE (10:43)
[2022-11-29] MEDS ORDERED: MAG HYDROX/AL HYDROX/SIMETH 30 ML UNIT-DOSE CUP PO ONE (11:48)
[2022-11-29] MEDS ORDERED: FAMOTIDINE 20 MG TABLET PO ONE (11:48)
[2022-11-29] MEDS ORDERED: NAPROXEN 500 MG TABLET PO ONE (11:48)
[2022-11-29] MEDS ORDERED: MAG HYDROX/AL HYDROX/SIMETH 30 ML UNIT-DOSE CUP ONE (12:09)
[2022-11-29] MEDS ORDERED: NAPROXEN 500 MG TABLET ONE (12:09)
[2022-11-29] MEDS ORDERED: CYCLOBENZAPRINE HCL 10 MG TABLET (FP) ONE (12:09)
[2022-11-29] MEDS ORDERED: FAMOTIDINE 20 MG TABLET ONE (12:09)
[2022-11-29 14:29] LABS: BASO % 0.4 % (0-2.0); EOS % 1.3 % (0-4.5); HEMATOCRIT 34.5 % (32.4-45.2); HEMOGLOBIN 11.2 GM/dL (10.7-15.3); LYMPH % 22.7 % (8-40); MCH 27.6 pg (25.7-33.7); MCHC 32.5 g/dl (32.0-36.0); MEAN CELL VOLUME 84.9 fl (80-96); MEAN PLT VOLUME 8.4 fl (7.5-11.1); NEUT % 68.6 % (42.8-82.8); PLATELET COUNT 270 10^3/uL (134-434); RBC 4.07 M/mm3 (3.60-5.2); RDW 14.9 % (11.6-15.6); WHITE BLOOD COUNT 6.9 K/mm3 (4.0-10.0)
[2022-11-29 14:44] LABS: ALBUMIN 3.8 g/dl (3.4-5.0); BLOOD UREA NITROGEN 19.3 mg/dL (7-18); CALCIUM 9.1 mg/dL (8.5-10.1)
[2022-11-29 14:47] LABS: CREATININE 1.2 mg/dL (0.55-1.3)
[2022-11-29 14:49] LABS: TOT PROT 7.1 g/dl (6.4-8.2)
[2022-11-29 14:50] LABS: BILIRUBIN,TOTAL 0.6 mg/dL (0.2-1)
[2022-11-29 16:03] LABS: PH,URINE 7.5 (5.0-8.0); URINE APPEARANCE CLEAR; URINE BILIRUBIN NEGATIVE (NEGATIVE); URINE COLOR YELLOW; URINE GLUCOSE (UA) NEGATIVE (NEGATIVE); URINE KETONE NEGATIVE (NEGATIVE); URINE LEUK ESTERASE NEGATIVE (NEGATIVE); URINE NITRITE NEGATIVE (NEGATIVE); URINE PROTEIN NEGATIVE (NEGATIVE); URINE UROBILINOGEN 0.2 mg/dL (0.2-1.0)
[2022-11-29] MEDS ORDERED: LIDOCAINE PATCH REMOVAL MC ONE (22:00)
== END 2022-11-29 16:40 | disposition home or self-care (01) ==
LOC: JER 09:30
DX: M54.50 Low back pain, unspecified (principal)
CPT/HCPCS: 36415; 80053; 81003; 85025; 87086; 99283-25

== ENCOUNTER 2022-12-29 10:53 | Emergency (ER) | payer BC ==
[2022-12-29 11:21] VITALS: BMI 33.1
[2022-12-29] MEDS ORDERED: ACETAMINOPHEN 1000 MG/100 ML BAG IVPB ONE (12:25)
[2022-12-29] MEDS ORDERED: ACETAMINOPHEN INJECTION 100 ML IVPB ONE (12:37)
[2022-12-29 13:12] LABS: BASO % 0.6 % (0-2.0); EOS % 1.9 % (0-4.5); HEMATOCRIT 35.5 % (32.4-45.2); LYMPH % 19.4 % (8-40); MCH 28.6 pg (25.7-33.7); MCHC 33.9 g/dl (32.0-36.0); MEAN CELL VOLUME 84.5 fl (80-96); MEAN PLT VOLUME 8.3 fl (7.5-11.1); MONO % 7.3 % (3.8-10.2); NEUT % 70.8 % (42.8-82.8); PLATELET COUNT 262 10^3/uL (134-434); RDW 14.8 % (11.6-15.6); WHITE BLOOD COUNT 8.1 K/mm3 (4.0-10.0)
[2022-12-29 13:33] LABS: CALCIUM 8.9 mg/dL (8.5-10.1); URINE APPEARANCE CLEAR; URINE BILIRUBIN NEGATIVE (NEGATIVE); URINE COLOR YELLOW; URINE GLUCOSE (UA) NEGATIVE (NEGATIVE); URINE KETONE NEGATIVE (NEGATIVE); URINE LEUK ESTERASE NEGATIVE (NEGATIVE); URINE NITRITE NEGATIVE (NEGATIVE); URINE PROTEIN NEGATIVE (NEGATIVE); URINE UROBILINOGEN 0.2 mg/dL (0.2-1.0)
[2022-12-29 13:34] LABS: ALBUMIN 3.8 g/dl (3.4-5.0); BLOOD UREA NITROGEN 18.4 mg/dL (7-18)
[2022-12-29 13:37] LABS: CREATININE 1.2 mg/dL (0.55-1.3)
[2022-12-29 13:39] LABS: BILIRUBIN,TOTAL 0.7 mg/dL (0.2-1); TOT PROT 7.7 g/dl (6.4-8.2)
[2022-12-29] MEDS ORDERED: LIDOCAINE 5% TOPICAL PATCH TP ONE ×2 (14:50→14:51)
[2022-12-29] MEDS ORDERED: traMADol HCL 50 MG TABLET PO ONE (14:55)
[2022-12-29] MEDS ORDERED: traMADol HCL 50 MG TABLET ONE (15:15)
[2022-12-29] MEDS ORDERED: LIDOCAINE 5% TOPICAL PATCH ONE (15:15)
[2022-12-29] MEDS ORDERED: AMOX TR/POT CLAV 875MG/125MG TABLETS (FP) PO ONE (16:01)
[2022-12-29 16:28] VITALS: BP 153/83; PULSE 64; RESP 13; TEMP 98.3
[2022-12-29] MEDS ORDERED: AMOX TR/POT CLAV 875MG/125MG TABLETS (FP) ONE (16:50)
[2022-12-29] MEDS ORDERED: LIDOCAINE PATCH REMOVAL MC SCH ×2 (22:00)
== END 2022-12-29 17:00 | disposition home or self-care (01) ==
LOC: JER 10:53
PROC: 3E033GC Introduction of Other Therapeutic Substance into Peripheral Vein, Percutaneous Approach (ICD-10-PCS; principal; 2022-12-29)
DX: K57.92 Diverticulitis of intestine, part unspecified, without perforation or abscess without bleeding (principal)
CPT/HCPCS: 36415; 71046-TC-FY; 74177-TC; 80053; 81003; 82550; 84484; 85025; 87086; 93005; 93010; 99285-25; Q9967

== ENCOUNTER 2023-04-30 11:45 | Emergency (ER) | payer BC ==
[2023-04-30 12:01] VITALS: BP 163/99; PULSE 75; RESP 18; TEMP 97; BMI 32.4
[2023-04-30] MEDS ORDERED: SODIUM CHLORIDE 1,000 ML IV STA (12:27)
[2023-04-30] MEDS ORDERED: ACETAMINOPHEN 1000 MG/100 ML BAG IVPB ONE (12:29)
[2023-04-30] MEDS ORDERED: ACETAMINOPHEN INJECTION 100 ML IVPB ONE (12:38)
[2023-04-30 13:04] LABS: BASO % 0.5 % (0-2.0); EOS % 2.9 % (0-4.5); HEMOGLOBIN 11.6 GM/dL (10.7-15.3); LYMPH % 19.7 % (8-40); MCH 27.4 pg (25.7-33.7); MEAN CELL VOLUME 82.9 fl (80-96); MEAN PLT VOLUME 8.4 fl (7.5-11.1); MONO % 13.5 % (3.8-10.2); NEUT % 63.4 % (42.8-82.8); PLATELET COUNT 229 10^3/uL (134-434); RBC 4.23 M/mm3 (3.60-5.2); RDW 14.7 % (11.6-15.6); WHITE BLOOD COUNT 7.1 K/mm3 (4.0-10.0)
[2023-04-30 13:10] LABS: EPI CELLS 3 /uL (0-25.1); HYALINE CASTS 0 /uL (0-3.1); PH,URINE 6.5 (5.0-8.0); URINE APPEARANCE CLEAR; URINE BACTERIA 80 /uL (0-1359); URINE BILIRUBIN NEGATIVE (NEGATIVE); URINE COLOR YELLOW; URINE GLUCOSE (UA) NEGATIVE (NEGATIVE); URINE KETONE NEGATIVE (NEGATIVE); URINE LEUK ESTERASE NEGATIVE (NEGATIVE); URINE NITRITE NEGATIVE (NEGATIVE); URINE PROTEIN 1+ (NEGATIVE); URINE RBC 10 /uL (0-23.9); URINE UROBILINOGEN 0.2 mg/dL (0.2-1.0); URINE WBC 2 /uL (0-25.8)
[2023-04-30 13:22] LABS: POTASSIUM 4.8 mmol/L (3.5-5.1)
[2023-04-30 13:25] LABS: ALBUMIN 3.4 g/dl (3.4-5.0); CALCIUM 9.1 mg/dL (8.5-10.1)
[2023-04-30 13:28] LABS: CREATININE 1.2 mg/dL (0.55-1.3)
[2023-04-30 13:29] LABS: BILIRUBIN,TOTAL 0.5 mg/dL (0.2-1); TOT PROT 7.4 g/dl (6.4-8.2)
== END 2023-04-30 19:14 | disposition home or self-care (01) ==
LOC: JER 11:45
PROC: 3E033NZ Introduction of Analgesics, Hypnotics, Sedatives into Peripheral Vein, Percutaneous Approach (ICD-10-PCS; principal; 2023-04-30)
PROC: 3E0337Z Introduction of Electrolytic and Water Balance Substance into Peripheral Vein, Percutaneous Approach (ICD-10-PCS; 2023-04-30)
DX: M54.50 Low back pain, unspecified (principal)
CPT/HCPCS: 36415; 74176-TC; 76775-TC; 80053; 81003; 83690; 84703; 85025; 87086; 99285-25